=== PATIENT | female | born 1985 | race Caucasian/White ===

== ENCOUNTER → 2019-08-22 07:12 | Outpatient (CLI) | payer OTHER, MEDICAID, SELFPAY ==
--- NOTE | 2019-08-22 07:14 | CT_ITS ---
STUDY: CT MAXILLOFACIAL SINUSES REASON FOR EXAM: Female, 34 years old. Sinusitis x1 month RADIATION DOSAGE (If Supplied By Facility): CTDIvol = ( 33.06 ) mGy, DLP = ( 718.15 ) mGycm TECHNIQUE: The patient was scanned in a multi detector CT scanner. High resolution axial imaging was performed without the administration of intravenous contrast material. Sagittal and coronal images were reconstructed. Individualized dose optimization techniques were used for this CT. COMPARISON: None. FINDINGS: FRONTAL SINUSES: Normal aeration, without mucosal inflammatory disease. ETHMOIDAL SINUSES: There is mucosal thickening of multiple ethmoid air cells bilaterally. MAXILLARY SINUSES: There is mucosal thickening of the maxillary sinuses. SPHENOIDAL SINUSES: There is mild mucosal thickening of the sphenoid sinuses. There is patency of the bilateral maxillary infundibuli with normal uncinate processes, ethmoid bullae, and hiatus semilunaris. Normal bilateral middle turbinates. Normal bilateral inferior turbinates. There is nasal septal deviation toward the right. There is patency of the bilateral nasal airways. The visualized osseous structures are normal. The visualized bilateral orbital contents are normal. CT/Sinus/Facial Bone IMPRESSION: Chronic pansinusitis. Electronically Signed: Jose Moss MD at 22:43 EDT , Service support ,
== END ==
PROVIDERS: Family Provider Physician Assistant; PCP Physician Assistant; Referring Provider Otolaryngology; Visit Provider Otolaryngology
DX: J32.9 Chronic sinusitis, unspecified (principal)
CPT/HCPCS: 70486

== ENCOUNTER 2020-11-21 11:06 | Day surgery (SDC) | payer OTHER, MEDICAID, SELFPAY ==
[2020-11-21] VITALS (10 sets, daily range): BP systolic 114–135; BP diastolic 66–80; PULSE 71–123; RESP 16–20; TEMP 36.6–37.7; O2SAT 95–99; BMI 37.2
--- NOTE | 2020-11-21 11:16 | CT_ITS ---
STUDY: CT ABDOMEN AND PELVIS WITHOUT CONTRAST REASON FOR EXAM: Female, 35 years old. Right flank pain today, nausea/vomiting. Prior x 2. RADIATION DOSAGE (If Supplied By Facility): CTDIvol = ( 18.21 ) mGy, DLP = ( 936.99 ) mGycm TECHNIQUE: Transaxial images were obtained from the dome of the diaphragm to the symphysis pubis without oral contrast, and without intravenous contrast. Sagittal and coronal images were reconstructed. Individualized dose optimization techniques were used for this CT. COMPARISON: Comparison is made with prior study dated 10/05/2013. FINDINGS: Minimal increased markings at the left lung base suggestive of left basilar atelectasis. The visualized portions of the heart are within normal limits. Normal liver. Normal gallbladder and extrahepatic biliary system. Normal spleen. Normal pancreas. Normal bilateral adrenal glands. Engorgement of the right kidney. Mild degree of right hydronephrosis and right hydroureter due to a 4.6 mm calculus at the right ureterovesical junction. 2 mm calculus in the upper pole calyx of the left kidney. There is a small hiatal hernia. Normal small intestine. Normal colon. Small lymph nodes in the mesentery in the right lower quadrant is suggestive mesenteric adenitis. The appendix is visualized and appears normal. Normal abdominal aorta. Normal inferior vena cava. Normal retroperitoneum. Normal urinary bladder. There is a small umbilical hernia containing fat. Normal osseous structures. CT/Abdomen/Pelvis without Cont IMPRESSION: 4.6 mm calculus at the right ureterovesical junction causing a right hydronephrosis and right hydroureter. Nonobstructive calculus in the upper pole of the left kidney. Electronically Signed: Nazario Scott, at 12:42 EST , Service support ,
--- NOTE | 2020-11-21 11:18 | ED.VISSUMM ---
- ER Visit Summary Date of Service: 11/21/20 Chief Complaint: [Right flank pain] History of Present Illness: The patient is a 35 F [presents to the emergency department complaint of pain in her right side that started this morning. Patient states the pain came on suddenly. She has had nausea and vomiting with it. The pain radiates to the front of the abdomen. She is never had discomfort like this before. She denies any fever. She denies urinary symptoms. No significant medical history. Patient has had prior . Patient states the pain is a 10 out of 10. Patient actively retching and vomiting on arrival.] Physical Examination: [HEENT-PERRLA, EOMI. Cranial nerves II through XII grossly intact. TMs clear. Mucous membranes moist. No adenopathy. Cardiovascular-regular rate and rhythm without murmur or ectopy Lungs-clear to auscultation, chest wall stable without crepitus or subcu emphysema Abdomen-normoactive bowel sounds, soft. Patient has tenderness palpation over right lower quadrant and CVA tenderness on the right. There is no rebound, rigidity, or pedal signs. Extremities-intact ?4, normal range of motion, normal pulses, atraumatic] Test Results: [CBC with differential obtained showing a 13.7, hemoglobin 13.7, hematocrit 40, platelets 412. Chemistries unremarkable. CT scan of the abdomen pelvis showed a 4.6 mm calculus at the right UVJ with right hydroureter and hydronephrosis. Urinalysis ordered and pending.] Emergency Department Course and Treatment: [IV line established on arrival. Patient was given Zofran, Toradol, and Dilaudid for pain. Patient continued to have pain and was given a second milligram of Dilaudid for pain. On repeat evaluation at 1310 patient continues to complain of waves of severe pain. She does not feel comfortable going home.] Treatment Plan: Case will be discussed with Dr. Starr who is on for urology to admit patient.] Disposition: [Admit for pain control] Impression: [Right-sided kidney stone with colic Intractable pain] This note was generated with [employer] software. It may contain incorrect words, spelling, and punctuation that were not noted in review of the chart prior to signing ED Disposition - Plan for ED Patient: Referrals: Frida Arreguin PA [NON-STAFF] -
[2020-11-21] MEDS: Ondansetron 4 MG/2 ML Vial IV (11:23)
[2020-11-21 11:25] LABS: Absolute Lymphocyte Count 1.87 X10^3/uL (0.83-4.51); Absolute Neutrophil Count 11.2 X10^3/uL (2.0-7.7); Basophil# 0.04 X10^3/uL; Basophil% 0.3 % (0-1); Eosinophil# 0.04 X10^3/uL; Eosinophils% 0.3 % (0-5); Hematocrit 40.1 % (37-47); Hemoglobin 13.7 g/dL (12.0-15.0); Lymphocyte # 1.87 X10^3/ul (4.0); Lymphocyte % 13.6 % (19-41); Mean Corp Hgb Conc 34.2 g/dL (32-36); Mean Corpuscular Hgb 29.4 pg (27.0-32.0); Mean Corpuscular Volume 86.1 fL (81-99); Mean Platelet Vol. 8.6 fl (6.2-12.0); Monocyte# 0.51 X10^3/uL; Monocyte% 3.7 % (0-10); NRBC Flagged by Analyzer 0 % (0-5); Neutrophil % 81.6 % (47-70); Platelet Count 412 K/mm3 (150-450); RBC Distribution Width CV 12.4 % (11.6-14.6); RBC Distribution Width SD 38.7 fl (35.1-43.9); Red Blood Count 4.66 M/mm3 (4.2-5.4); White Blood Count 13.7 K/mm3 (4.4-11.0)
[2020-11-21] MEDS: HYDROmorphone 1 MG/ML Syringe IV ×3 (11:25→13:24)
[2020-11-21] MEDS: Ketorolac 30 MG/ML Syringe IV (11:26)
[2020-11-21] MEDS: 0.9% Normal Saline 1,000 ML 125 ML IV (11:33)
[2020-11-21 11:36] LABS: Anion Gap 6 (5-15); BUN 11 mg/dL (7-18); BUN/Creat Ratio 13.3 RATIO (10-20); Calcium,Total 8.6 mg/dL (8.5-10.1); Chloride 108 mmol/L (98-107); Creatinine, Serum 0.83 mg/dL (0.55-1.02); EST Glomerular Filtration Rate 83 mL/min (>60); Est Glom Filt Rate - Afr Amer 100 mL/min (>60); Estimated Creatinine Clearance 77.51 ml/min; Glucose 137 mg/dL (74-106); Potassium 3.7 mmol/L (3.5-5.1); Sodium Level 138 mmol/L (136-145)
[2020-11-21 12:02] LABS: Internal QC Validated? YES +Cl - CLEAR BKGD; Pregnancy, Serum, hCG Quali. NEGATIVE Negative
--- NOTE | 2020-11-21 13:15 | PCM.CONS.U ---
Problem List (1) Right ureteral calculus Status: Acute Reason for Consult Date of Consultation: 11/21/20 Reason for Consultation: right obstructing stones in ureter History of Present Illness: The patient is a 35 year old female with RIGHT 4mm stone in distal ureter with nausea, pain , vomiting will take to surgery now to remove stone and place stent. Past Medical History Allergies benzonatate [From [employer] Francisca] Allergy (Mild, Verified 11/21/20 11:06) Swelling Home Medications: Ambulatory Orders Medication Instructions Recorded Albuterol Inhaler [Ventolin Hfa] 1 - 2 puff INHALATION Q4H PRN PRN 01/22/15 Mometasone/Formoterol [Dulera 200 8.8 gm IH DAILY 01/22/15 Mcg/5 Mcg Inhaler] Surgical History: arthroscopy, knee, tonsillectomy Psychiatric History: No pertinent psych hx [employer] WR[employer]PER History: - - complex mass in the pelvis on CT yesterday.....results pelvic US done today pending Smoking Status: Never smoker Review of Systems Constitutional: Denies: Chills, Fever, Weight Change HEENT: Denies: Head Aches, Sinus Congestion, Sinus Drainage Cardiovascular: Denies: Chest Pain, Palpitations Respiratory: Denies: Cough, Shortness of breath at rest, Sputum production Gastrointestinal: Denies: Abdominal Pain, Nausea, Vomiting Genitourinary: Denies: Dysuria Musculoskeletal: Denies: Joint Pain, Joint Tenderness Skin: Denies: Rash, Wounds Neurological: Denies: Numbness, Tingling, Focal weakness Psychiatric: Denies: Anxiety, Depression, Homicidal Ideations, Suicidal Ideations Hematologic/ Lymphatic: Denies: Easy Bruising, Easy Bleeding Physical Exam - Physical Exam Vital Signs Temp 97.8 F 11/21/20 11:08 Pulse 71 11/21/20 11:08 Resp 19 H 11/21/20 11:08 BP 135/73 H 11/21/20 11:48 Pulse Ox 99 11/21/20 11:08 Intake & Output 11/19/20 11/20/20 11/21/20 23:59 23:59 23:59 Weight: 95.254 kg General: Alert, Oriented x3 HEENT: Atraumatic Oral: Moist Mucosa Neck: Supple Lungs: Normal air movement Cardiovascular: Regular Rhythm Laboratory Tests Past 24 Hrs 11/21/20 11/21/20 11/21/20 11:19 11:19 11:19 WBC 13.7 H RBC 4.66 Hgb 13.7 Hct 40.1 MCV 86.1 MCH 29.4 MCHC 34.2 RDW Std Deviation 38.7 RDW Coeff of [place] 12.4 Plt Count 412 MPV 8.6 Immature Gran % (Auto) 0.500 Neut % (Auto) 81.6 H Lymph % (Auto) 13.6 L [place] % (Auto) 3.7 Eos % (Auto) 0.3 Baso % (Auto) 0.3 Absolute Neuts (auto) 11.2 H Absolute Lymphs (auto) 1.87 Nucleated RBC % 0 Sodium 138 Potassium 3.7 Chloride 108 H Carbon Dioxide 24.0 Anion Gap 6 BUN 11 Creatinine 0.83 Estim Creat Clear Calc 77.51 Est GFR (MDRD) Af Amer 100 Est GFR (MDRD) Non-Af 83 BUN/Creatinine Ratio 13.3 Glucose 137 H Calcium 8.6 Serum , Qual NEGATIVE Assessment/Plan All Active Problems Right ureteral calculus (Acute) Gestational hypertension (Acute) plan for right ureteroscopy laser stone and stent today in OR NPO, patient sent to OR now
[2020-11-21 13:40] LABS: Bacteria 0 SEEN /hpf (None Seen); Mucous, Urine 0 SEEN /hpf (<or=2+); Red Blood Cells-Urine 0 SEEN /hpf (0-5); White Blood Cells 0 SEEN /hpf (0-5)
[2020-11-21] MEDS: Lactated Ringers 1,000 ML 75 ML IV ×2 (13:50→15:20)
--- NOTE | 2020-11-21 13:51 | DCINST_ITS ---
Discharge Diet: Light diet - advance as tolerated Discharge Activity: May not drive while taking narcotic pain medications., May Shower Call your doctor if your incision/area has: Continuous Slow Oozing, Sudden Increased Bleeding, Increased Pain/ Swelling, Increased Redness, Foul Smelling Discharge, Swelling at the incision site Call your doctor if you observe: Fever of 101 or Higher Suture Line Care: Avoid Pulling/Pushing, Avoid Pinching/Bending Allergies/Adverse Reactions: Allergies benzonatate [From [employer] Espinosa] Allergy (Mild, Verified 11/21/20 11:06) Swelling Medications to take at Discharge Albuterol Inhaler [Ventolin Hfa] 1 - 2 puff INHALATION Q4H PRN PRN 01/22/15 Mometasone/Formoterol [Dulera 200 Mcg/5 Mcg Inhaler] 8.8 gm IH DAILY 01/22/15 Primary Care Physician: Frida Arreguin PA [NON-STAFF] - Test Results: Test results from this visit will be discussed in further detail at your follow- up appointment, if applicable. Please Follow Up With: Ben Starr MD - [phone] When: please call to make an appointment.
[2020-11-21 13:56] LABS: Color, Urine Yellow (Yellow); Glucose, Dipstick Normal (Normal); Ketone-Dipstick 15 mg/dl (Negative); Leukocyte Esterase-Dipstick Negative /ul (Negative); Nitrite-Dipstick Negative (Negative); Occult Blood-Urine 50 /ul (Negative); Protein-Dipstick Negative (Negative); Specific Gravity, Urine 1.015 (1.002-1.030); Urine Bilirubin Dipstick Negative (Negative); Urine Clarity Sl. Cloudy (Clear); Urine Urobilinogen Normal (Normal)
[2020-11-21 14:03] LABS: Squamous Epithelial Cells - UA 0-5 SEEN /hpf (5-10)
--- NOTE | 2020-11-21 14:42 | OP.PCM_ITS ---
Problem List (1) Right ureteral calculus Status: Acute Report of Operation Date of Procedure: 11/21/20 Pre-Operative Diagnosis: Right obstructive distal ureteral calculi Post-Operative Diagnosis: Same Surgery/Procedure Performed:: Cystoscopy, balloon dilation of the right ureter, ureteroscopy in the right side laser lithotripsy of stone and right stent placement. Description of Surgical Findings:: This is a patient who presents to the hospital for treatment for an obstructing distal right ureter calculi. I discussed witht the patient how the surgery would be performed and we reviewed the risks and benefits of the surgery. The risk and benefits include the risk of failure to remove the stone completely and that the patient may need multiple procedures. We discussed the risk of an infection, the risk of bleeding. We discussed the very rare risk of serious complicated injury to the ureter. The patient understands that if the stone is not able to be removed safely that we may abort the procedure and place a stent. After full discussion and all questions address with the patient the consent form was signed the side was marked appropriately and the patient was taken back to the operating room for the procedure. The patient was taken back to the operating room. After induction of anesthesia by the anesthesiology team the patient was placed in dorsolithotomy position. The genitals were prepped and draped in usual sterile fashion. I went into the bladder with a 21 [place] rigid cystourethroscope through the urethra. Upon entering the bladder I inspected the trigone the left and right ureteral orifice and the bladder itself. I then cannulated the right ureteral orifice and advanced a 0.038 Glidewire up into the kidney. Then over the Glidewire I advanced a 5 Fr Ureteral catheter and performed a retrograde pyelogram with about 10cc of contrast, to delineate the anatomy and identify the stone location. Then a ureteral balloon dilator was advanced over the wire and the distal ureter was balloon dilated with a 12 Fr x 5cm balloon dilator. After 3 minutes of dilating the ureter the balloon was backloaded off the 0.038 glidewire then the safety wire was left in place. I then placed a second 0.038 Guidewire as a working wire and over the working 0.038 guidewire I went in with the santiago rigide 7.5fr ureteroscope. I was able to go inside with the 7.5Fr santiago rigid utereroscope and I pulled out the working guidewire and then through the 7.5 fr simirigid ureteroscope I engage the stone in the distal ureter with laser lithotripsy using a 270miron laser fiber with energy setting of 6 Hertz and 0.6 J until the stone was lasered into tiny little pieces that should pass on their own. A retrograde pyelogram was performed with 10cc of contast and no ext ravasation of contrast or perforation was identified in the ureter there was some mild irritation of the ureter where the stone was located. I then backed out of the ureter left the wire in place and then over the 0.038 guidewire I placed a double coiled pigtail ureteral stent 6fr x 24cm. The ureteral stent was advanced over the 0.038 guidewire under direct fluoroscopic guidance and direct cystoscopic visual guidance, once the stent was in good position I pulled the wire and the stent coiled in the kidney and bladder in good position. I then drained the patient's bladder and the cystoscope was removed and the patient was taken back to the recovery room in good position. The patient was given discharge instructions to call the office for instructions on when to come to the office to have the stent removed. Type of Anesthesia:: General Drains: stent right side 6fr x 24cm - Admit VTE Documentation VTE Present on Admission: No VTE Mechan Device Prophylaxis: SCD's
[2020-11-21] MEDS: Ketorolac 15 MG/ML Vial IV (15:13)
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
--- NOTE | 2020-11-21 15:58 | SUR.PHASEII ---
WITH PATIENT'S PERMISSION, CALLED HER MOTHER, JERRI MASTERS, TO UPDATE, DISCHARGE PLANNING. WILL CALL WHEN PATIENT READY FOR DISCHARGE PER MOTHER'S REQUEST D/T HAVING A SMALL CHILD WITH HER.
[2020-11-21] MEDS: HYDROcodone Bitartrate/Apap 5/325 Tablet PO (16:21)
== END 2020-11-21 17:39 | disposition home or self-care (01) ==
LOC: ED 13:14 → SDC 13:28 → ACINP 13:28
PROVIDERS: Emergency Provider Emergency Medicine; Visit Provider Urology
PROC: 0TJ98ZZ Inspection of Ureter, Via Natural or Artificial Opening Endoscopic (ICD-10-PCS; CPT 52352; principal; 2020-11-21 13:25)
DX: N13.2 Hydronephrosis with renal and ureteral calculous obstruction (principal); J45.909 Unspecified asthma, uncomplicated; Z79.51 Long term (current) use of inhaled steroids
CPT/HCPCS: 00918; 52356; 74176; 76000; 80048; 81001; 84703; 85025; 99284; J7040; J7120; A4216; C1769; C2617; J2405; J3490

== ENCOUNTER 2020-11-25 16:51 | Emergency (ER) | payer OTHER, MEDICAID, SELFPAY ==
[2020-11-21 13:31] VITALS: BMI 37.2
[2020-11-25 16:51] VITALS: BP 161/101; PULSE 107; RESP 17; TEMP 36; O2SAT 98; BMI 36.8
[2020-11-25] MEDS: Ondansetron ODT 4 MG Tablet PO (17:46)
[2020-11-25 17:53] LABS: Squamous Epithelial Cells - UA 0 SEEN /hpf (5-10)
[2020-11-25 17:54] LABS: Color, Urine Red (Yellow); Glucose, Dipstick Normal (Normal); Ketone-Dipstick 5 mg/dl (Negative); Leukocyte Esterase-Dipstick 100 /ul (Negative); Nitrite-Dipstick Negative (Negative); Occult Blood-Urine 250 /ul (Negative); Protein-Dipstick 100 mg/dl (Negative); Specific Gravity, Urine 1.025 (1.002-1.030); Urine Bilirubin Dipstick Negative (Negative); Urine Clarity Cloudy (Clear); Urine Urobilinogen Normal (Normal)
--- NOTE | 2020-11-25 18:10 | ED.DCSUM_ITS ---
History of Present Illness Chief Complaint: Complaint Informant: Patient Onset: Hours Context: Sudden Onset Timing: Continuous Quality: Right-sided abdominal/flank pain and dysuria with frequency Location: Right side Current Severity: Moderate Maximum Severity: Severe Worsened by: Urination Relieved by: Nothing Associated Symptoms: Nausea Narrative: Patient is a 35-year-old woman who was seen earlier this month for an obstructing right ureteral stone. Patient had a stent placed. Stent was removed today. 2030 minutes after stent was removed she developed what she described as spasms with right-sided pain, frequency, urgency and dysuria. She states she is urinating dribbles. She denies documented fever. She does report nausea without vomiting or diarrhea. She denies rash. She has no other complaints. Prior similar symptoms: No Recent Illness/Hospitalization: Yes - Past Medical History (1) Gestational hypertension Status: Acute (2) Right ureteral calculus Status: Acute Past Medical History - Allergies and Home Meds Allergies/Adverse Reactions: Allergies benzonatate [From [employer]on Perles] Allergy (Mild, Verified 11/25/20 16:51) Swelling Primary Care Physician: Care Physician,No Primary [Primary Care Provider] - Surgical History: arthroscopy, knee, tonsillectomy, - - Removal of urethral stent Lives: With Family Smoking Status: Never smoker Alcohol: None Drugs: None Review of Systems General: Denies: Chills, Fever, Malaise, Subjective, Sweats Eyes: Denies: Visual changes - bilaterally, Blurred Vision - bilaterally ENT: Denies: Rhinorrhea, Sore throat Respiratory: Denies: Dyspnea, Cough, Dyspnea on exertion Gastrointestinal: Reports: Nausea. Denies: Abdominal pain, Vomiting, Diarrhea, Melena, Hematochezia Genitourinary: Reports: Dysuria, Frequency, - - Urinating small amounts and urgency. Denies: Hematuria Musculoskeletal: Reports: Back pain. Denies: Myalgias, Arthralgias, Neck pain, Swelling, Extremity Pain Skin: Denies: Rash, Abscess Endocrine: Denies: Polyuria, Polydipsia Hematologic: Denies: Easy bruising, Easy bleeding Physical Exam Vital Signs/Narrative: Vital Signs Temp Pulse Resp BP Pulse Ox 11/25/20 16:51 96.8 F L 107 H 17 161/101 H 98 Inital Vital Signs reviewed: Yes General: Well nourished, Well developed, Obese, Acute Distress Head: Normocephalic, Atraumatic Eyes: Perrl, EOMI ENT: Moist mucous membranes, No rhinorrhea Neck: Supple, Nontender, No lymphadenopathy Cardiovascular: Regular rhythm, No murmurs, Normal S1, Normal S2, Tachycardia Respiratory: No distress, CTA bilaterally, Chest nontender Abdomen: Soft, Nondistended, Normal bowel sounds, No masses, Tender. Negative for: Nontender - Suprapubic region, Guarding, Rebound tenderness Rectal: Deferred Back: Nontender, Normal Inspection, CVA tenderness - Right side. Negative for: Spinal tenderness Extremities: Negative for: Nontender, No edema Skin: Negative for: Normal color, No rash Neurological: Negative for: Alert, Oriented x3, Cranial nerves II-XII grossly in tact, Normal Strength, Normal Sensation Psychological: Normal Mood Diagnostic/Tx/Re-eval Laboratory Results 11/25/20 17:30 Urine Color Red Urine Clarity Cloudy Urine pH 6.0 Ur Specific [place] 1.025 Urine Protein 100 H Urine Glucose (UA) Normal Urine Ketones 5 H Urine Occult Blood 250 H Urine Nitrite Negative Urine Bilirubin Negative Urine Urobilinogen Normal Ur Leukocyte Esterase 100 H Urine RBC > 100 SEEN Urine WBC 10-25 SEEN Ur Squamous Epith Cells 0 SEEN Urine Bacteria RARE Urine Mucus RARE Patient's urine is not consistent with infection. Patient was treated initially with opium and belladonna suppository. She had no improvement. She subsequently received IV Toradol and morphine. When she was reassessed at 2109 she was no longer in discomfort. She feels comfortable going home. - Medical Decision Making Urinary tract infection, pyelonephritis, ureteral spasm. Will obtain UA Zofran was ordered because patient began to vomit. Still awaiting results of urinalysis. At 1814 I was informed that patient came to the doorway complaining she is in severe pain. Since she describes a spasm and opium and belladonna suppository was ordered. ED Disposition - Plan for ED Patient: Disposition: Home or Assisted Living Diagnosis: URETHRAL SPASM, Painful bladder spasm, Hematuria, Ureterolithiasis Prescriptions: Oxycodone HCl/Acetaminophen [Percocet 5/325] 1 tab PO Q6H PRN PRN 3 Days #12 tab PRN Reason: Pain Prescription Printed Referrals: Care Physician,No Primary [Primary Care Provider] - Ben Starr MD [STAFF PHYSICIAN] - 3-5 Days if not improving
[2020-11-25 18:26] LABS: Bacteria RARE /hpf (None Seen); Mucous, Urine RARE /hpf (<or=2+); Red Blood Cells-Urine > 100 SEEN /hpf (0-5); White Blood Cells 10-25 SEEN /hpf (0-5)
[2020-11-25] MEDS: Ketorolac 15 MG/ML Vial IV (19:29)
[2020-11-25] MEDS: Morphine 4 MG/ML Syringe IV (19:29)
[2020-11-25] MEDS: Ceftriaxone 1 GM/50 ML BAG IV (19:37)
== END 2020-11-25 21:48 | disposition home or self-care (01) ==
PROVIDERS: Emergency Provider Emergency Medicine
DX: R39.89 Other symptoms and signs involving the genitourinary system (principal); Z87.442 Personal history of urinary calculi; E66.9 Obesity, unspecified; Z68.36 Body mass index [BMI] 36.0-36.9, adult
CPT/HCPCS: 81001; 87086; 87088; 96365; 96375; 99282; J7040; A4216

== ENCOUNTER 2022-11-30 03:52 | Inpatient (IN) | payer OTHER, MEDICAID, SELFPAY ==
[2022-11-30 03:52] VITALS: BP 160/98; PULSE 90; RESP 18; TEMP 35.9; O2SAT 99; BMI 35.6
--- NOTE | 2022-11-30 04:01 | CT_ITS ---
STUDY: CT ABDOMEN AND PELVIS WITHOUT CONTRAST REASON FOR EXAM: Female, 37 years old. Findings pain. Left-sided. TECHNIQUE: Transaxial images were obtained from the dome of the diaphragm to the symphysis pubis without oral contrast, and without intravenous contrast. Sagittal and coronal images were reconstructed. Individualized dose optimization techniques were used for this CT. COMPARISON: CT abdomen pelvis 11/21/2020. FINDINGS: Partially visualized lower chest: Lung bases unremarkable. Liver: No concerning lesions. Gallbladder and biliary tree: No visible gallstones. No pericholecystic inflammation. No biliary ductal dilation. Pancreas: No pancreatic lesions or inflammation. Spleen: Normal size, no splenic lesions. Adrenal glands: No concerning masses. Kidneys and ureters: 0.3 cm distal left ureteral stone, located about 2 cm proximal from the urinary bladder, with mild more proximal hydronephrosis and hydroureter. No residual left-sided stones. Punctate nonobstructing stone midpole calyx right kidney. No right hydronephrosis. Kidneys otherwise unremarkable. Bowel: Normal appendix. No obstruction or inflammation of the bowel. Urinary bladder: Nondistended. No other stones. Reproductive:Normal uterus and ovaries. Vascular: No abdominal aortic aneurysm. Retroperitoneal and peritoneal spaces: No ascites or free air. No retroperitoneal lesions. Osseous: No acute osseous abnormality. Mild left cholecystitis lumbar spine similar to prior. Abdominal and pelvic wall: No concerning findings. Any findings described in the findings sections and not included in the impression are incidental and do not require imaging follow-up. CT/Abdomen/Pelvis without Cont IMPRESSION: 0.3 cm distal left ureteral stone with mild obstruction. Punctate nonobstructing right renal stone. Electronically Signed: Jose Flower MD at 5:16 EST Reading Location ID and State: Pending sale to [facility] / [place] Tel , Service support ,
--- NOTE | 2022-11-30 04:02 | EDS_ITS ---
HPI History of Present Illness Chief Complaint: Flank Pain Informant: patient Onset/Context/Timing Onset: Days Context: Gradual Onset Timing: Waxes and wanes Current Severity: Severe Maximum Severity: Severe Narrative Narrative: Patient presents with 1 week history of left flank pain. She has a history of kidney stones and this feels similar. She states the pain has been waxing and waning. At 3 AM this morning she woke up with severe pain with nausea and vomiting. She does report dysuria. She reports having fever and chills. [facility] Medical History Kidney stones Home Medications albuterol sulfate 90 mcg/actuation aerosol inhaler (Ventolin HFA) 1 - 2 puff inhalation Q4H PRN PRN Asthma 01/22/15 [History Last Taken 10/29/16 08:00 1-2] mometasone-formoterol HFA 200 mcg-5 mcg/actuation aerosol inhaler (Dulera) 8.8 g IH DAILY respiratory 01/22/15 [History Last Taken 10/17/17] ciprofloxacin HCl 500 mg tablet 500 mg PO BID #6 tabs 11/21/20 [Rx Last Taken Unknown] Allergy/AdvReac Type Severity Reaction Status Date / Time benzonatate Allergy Mild Swelling Verified 11/30/22 03:55 [From Annika Espinosa] Social History Smoking Status: Never smoker ROS ROS ED Constitutional Constitutional ED: Reports chills and fever(s) Eyes Eyes: Denies change in vision or discharge from eye(s) ENT ENT ED: Denies discharge from eye(s), rhinorrhea or sore throat Cardiovascular Cardiovascular: Denies chest pain or palpitations Respiratory/Chest Respiratory/Chest: Denies cough or dyspnea Gastrointestinal Gastrointestinal: Reports abdominal pain, nausea and vomiting; Denies diarrhea Genitourinary Genitourinary ED: Reports dysuria Musculoskeletal Musculoskeletal: Reports back pain; Denies extremity pain Integumentary Denies Abrasions or rash Neurologic Neurologic: Denies headache(s) or weakness Psychiatric Psychiatric: Denies anxiety or depression Allergic/Immunologic Allergic/Immunologic ED: Denies lip swelling or urticaria EXAM Physical Exam Const Vital Signs: 11/30/22 03:52 11/30/22 06:18 Temperature 96.6 F L Temperature Source Temporal Pulse Rate 90 81 Respiratory Rate 18 22 H Blood Pressure 160/98 H 133/82 H Blood Pressure Mean 118 99 Pulse Ox 99 98 Oxygen Delivery Method Room Air Room Air Positive well nourished and well developed General Appearance ED: well developed HEENT Reports normocephalic and head/scalp atraumatic Eyes PERRL and EOMs intact bilaterally Neck supple Chest Wall inspection of chest normal and palpation of chest normal Resp normal respiratory effort and clear to auscultation bilaterally Cardio regular rate and regular rhythm GI non-tender Auscultation: hypoactive bowel sounds Palpation: soft Back/Spine General Back: CVA tenderness left Extremity normal to inspection Neuro oriented x3 and no sensory deficits noted Sensorium / Orientation: alert Motor Exam: strength 5/5 throughout Psych Mood & Affect: anxious Skin no rashes or lesions noted MDM MDM MDM Narrative Medical decision making narrative: Patient initially given Dilaudid, Zofran, Toradol, IV fluids. Lab work obtained along with urinalysis and CT flank. Lab Data Attestation: I reviewed the patient's lab results. Labs: Laboratory Results - last 24 hr 11/30/22 11/30/22 11/30/22 04:10 04:10 04:10 WBC 10.0 RBC 4.96 Hgb 14.5 Hct 43.5 MCV 87.7 MCH 29.2 MCHC 33.3 RDW Std Deviation 40.6 RDW Coeff of [place] 12.7 Plt Count 415 MPV 9.1 Immature Gran % (Auto) 0.400 Neut % (Auto) 63.4 Lymph % (Auto) 29.6 [place] % (Auto) 5.1 Eos % (Auto) 1.0 Baso % (Auto) 0.5 Absolute Neuts (auto) 6.3 Absolute Lymphs (auto) 2.95 Nucleated RBC % 0 Sodium 138 Potassium 4.0 Chloride 106 Carbon Dioxide 23.0 Anion Gap 9 BUN 12 Creatinine 0.98 Estim Creat Clear Calc 64.39 Est GFR (MDRD) Af Amer 82 Est GFR (MDRD) Non-Af 68 BUN/Creatinine Ratio 12.3 Glucose 134 H Calcium 8.8 Serum , Qual NEGATIVE Urine Color Urine Clarity Urine pH Ur Specific [place] Urine Protein Urine Glucose (UA) Urine Ketones Urine Occult Blood Urine Nitrite Urine Bilirubin Urine Urobilinogen Ur Leukocyte Esterase Urine RBC Urine WBC Ur Squamous Epith Cells Urine Bacteria Urine Mucus 11/30/22 04:25 WBC RBC Hgb Hct MCV MCH MCHC RDW Std Deviation RDW Coeff of [place] Plt Count MPV Immature Gran % (Auto) Neut % (Auto) Lymph % (Auto) [place] % (Auto) Eos % (Auto) Baso % (Auto) Absolute Neuts (auto) Absolute Lymphs (auto) Nucleated RBC % Sodium Potassium Chloride Carbon Dioxide Anion Gap BUN Creatinine Estim Creat Clear Calc Est GFR (MDRD) Af Amer Est GFR (MDRD) Non-Af BUN/Creatinine Ratio Glucose Calcium Serum , Qual Urine Color Yellow Urine Clarity Sl. Cloudy Urine pH 6.0 Ur Specific [place] 1.015 Urine Protein 30 H Urine Glucose (UA) Normal Urine Ketones 5 H Urine Occult Blood 50 H Urine Nitrite Negative Urine Bilirubin Negative Urine Urobilinogen 1 H Ur Leukocyte Esterase Negative Urine RBC 0-5 SEEN Urine WBC 0-5 SEEN Ur Squamous Epith Cells 10-25 SEEN Urine Bacteria 2+ Urine Mucus 2+ Radiography Diagnostic Testing: Clinical Impression(s) from Imaging Studies Abdomen/Pelvis CT 11/30/22 04:01 IMPRESSION: 0.3 cm distal left ureteral stone with mild obstruction. Punctate nonobstructing right renal stone. Electronically Signed: Jose Flower MD at 5:16 EST Reading Location ID and State: [address] [place] [address] Tel , Service support , Treatment and Re-Evaluation Narrative: CBC and chemistry studies unremarkable. test is negative. Urinalysis reveals 10-25 epithelial cells with 2+ bacteria. No nitrites noted. CT scan of the flank reveals a 0.3 cm distal left ureter stone with mild obstruction. Patient has now gotten 4 rounds of pain medication. She continues to be quite uncomfortable. I did review her prior notes and 2 years ago she did require stent placement for a distal right ureter stone. I will speak with Dr. Starr. Discharge Plan Triage Chief Complaint: Flank Pain ED Provider: Alisa Nogueira Dx/Rx/DC Orders Clinical Impression: Ureterolithiasis Prescriptions: No Action albuterol sulfate [Ventolin HFA] 1 INHALER inhaler 1 - 2 puff inhalation Q4H PRN PRN (Reason: Asthma) mometasone-formoterol [Dulera] 8.8 GM Hfa.Aer.Ad 8.8 g IH DAILY ciprofloxacin HCl 500 MG tablet 500 mg PO BID Qty: 6 0RF Primary Care Provider: Care Physician,No Primary Referrals: Care Physician,No Primary [Primary Care Provider] - Disposition Disposition: Acute Care Hospital [facility]
[2022-11-30] MEDS: HYDROmorphone 0.5 MG/0.5 ML SYRINGE IV ×3 (04:13→07:01)
[2022-11-30] MEDS: Ondansetron 4 MG/2 ML Vial IV ×3 (04:13→18:54)
[2022-11-30] MEDS: Ketorolac 30 MG/ML Syringe IV ×2 (04:13→10:21)
[2022-11-30 04:23] LABS: Absolute Lymphocyte Count 2.95 X10^3/uL (0.83-4.51); Absolute Neutrophil Count 6.3 X10^3/uL (2.0-7.7); Basophil# 0.05 X10^3/uL; Basophil% 0.5 % (0-1); Hematocrit 43.5 % (37-47); Hemoglobin 14.5 g/dL (12.0-15.0); Lymphocyte # 2.95 X10^3/ul (0.83-4.51); Lymphocyte % 29.6 % (19-41); Mean Corp Hgb Conc 33.3 g/dL (32-36); Mean Corpuscular Hgb 29.2 pg (27.0-32.0); Mean Corpuscular Volume 87.7 fL (81-99); Mean Platelet Vol. 9.1 fl (6.2-12.0); Monocyte# 0.51 X10^3/uL; Monocyte% 5.1 % (0-10); NRBC Flagged by Analyzer 0 % (0-5); Neutrophil # 6.32 X10^3/uL (2.7-7.7); Neutrophil % 63.4 % (47-70); Platelet Count 415 K/mm3 (150-450); RBC Distribution Width CV 12.7 % (11.6-14.6); RBC Distribution Width SD 40.6 fl (35.1-43.9); Red Blood Count 4.96 M/mm3 (4.2-5.4)
[2022-11-30 04:32] LABS: Color, Urine Yellow (Yellow); Glucose, Dipstick Normal (Normal); Ketone-Dipstick 5 mg/dl (Negative); Leukocyte Esterase-Dipstick Negative /ul (Negative); Nitrite-Dipstick Negative (Negative); Occult Blood-Urine 50 /ul (Negative); Protein-Dipstick 30 mg/dl (Negative); Specific Gravity, Urine 1.015 (1.002-1.030); Urine Bilirubin Dipstick Negative (Negative); Urine Clarity Sl. Cloudy (Clear); Urine Urobilinogen 1 mg/dl (Normal)
[2022-11-30 04:33] LABS: Internal QC Validated? YES +Cl - CLEAR BKGD; Pregnancy, Serum, hCG Quali. NEGATIVE Negative
[2022-11-30 04:37] LABS: Anion Gap 9 (5-15); BUN 12 mg/dL (7-18); BUN/Creat Ratio 12.3 RATIO (10-20); Calcium,Total 8.8 mg/dL (8.5-10.1); Chloride 106 mmol/L (98-107); Creatinine, Serum 0.98 mg/dL (0.55-1.02); EST Glomerular Filtration Rate 68 mL/min (>60); Est Glom Filt Rate - Afr Amer 82 mL/min (>60); Estimated Creatinine Clearance 64.39 ml/min; Glucose 134 mg/dL (74-106); Sodium Level 138 mmol/L (136-145)
[2022-11-30 04:38] LABS: Bacteria 2+ /hpf (None Seen); Mucous, Urine 2+ /hpf (<or=2+); Red Blood Cells-Urine 0-5 SEEN /hpf (0-5); Squamous Epithelial Cells - UA 10-25 SEEN /hpf (5-10); White Blood Cells 0-5 SEEN /hpf (0-5)
[2022-11-30] MEDS: Metoclopramide 10 MG/2 ML Vial 5 MG IV (04:54)
[2022-11-30] MEDS: Morphine 4 MG/ML Syringe IV ×2 (04:55→05:49)
[2022-11-30] MEDS: 0.9% Normal Saline 1,000 ML 250 ML IV (04:56)
[2022-11-30 06:18] VITALS: BP 133/82; PULSE 81; RESP 22; O2SAT 98
[2022-11-30 07:19] VITALS: BP 137/69; PULSE 78; RESP 18; TEMP 36.4; O2SAT 96
--- NOTE | 2022-11-30 07:54 | HP.PCM_ITS ---
HPI - General General Date of Admission: 11/30/22 HPI Narrative VIOLETTA MASTERS, is a 37 F who presents to the emergency room with severe flank pain on the left side with a small stone in the distal left ureter that she can pass she was in intractable severe pain in the emergency room the ER physician called me and asked me and admit the patient because they could not get her pain under control to send her home. [facility] Medical History Kidney stones Home Medications albuterol sulfate 90 mcg/actuation aerosol inhaler (Ventolin HFA) 1 - 2 puff inhalation Q4H PRN PRN Asthma 01/22/15 [History Last Taken 10/29/16 08:00 1-2] mometasone-formoterol HFA 200 mcg-5 mcg/actuation aerosol inhaler (Dulera) 8.8 g IH DAILY respiratory 01/22/15 [History Last Taken 10/17/17] ciprofloxacin HCl 500 mg tablet 500 mg PO BID #6 tabs 11/21/20 [Rx Last Taken Unknown] Allergy/AdvReac Type Severity Reaction Status Date / Time benzonatate Allergy Mild Swelling Verified 11/30/22 03:55 [From Annika Espinosa] Social History Smoking Status: Never smoker ROS Constitutional Constitutional: Denies chills, fever(s) or malaise Eyes Eyes: Denies blurry vision or change in vision ENT HEENT: Reports none Cardiovascular Cardiovascular: Denies chest pain or palpitations Respiratory/Chest Respiratory/Chest: Denies cough or shortness of breath with exertion Gastrointestinal Gastrointestinal: Denies abdominal pain, constipation or diarrhea Musculoskeletal Musculoskeletal: Denies back pain, joint stiffness or joint swelling Integumentary Integumentary: Denies dry skin, jaundice, lesions or rash Neurologic Neurologic: Denies confusion, syncope or weakness Psychiatric Psychiatric: Reports none; Denies anxiety or depression Endocrine Endocrinology: Denies excessive sweating, fatigue or flushing Hematologic/Lymphatic Hematologic/Lymphatic: Denies anemia, easy bleeding or easy bruising Vital Signs Vital Signs Vital Signs: 11/30/22 03:52 11/30/22 06:18 11/30/22 07:19 Temperature 96.6 F L 97.5 F L Temperature Source Temporal Temporal Pulse Rate 90 81 78 Respiratory Rate 18 22 H 18 Blood Pressure 160/98 H 133/82 H 137/69 H Blood Pressure Mean 118 99 91 Pulse Ox 99 98 96 Oxygen Delivery Method Room Air Room Air Room Air Weight Weight: 91.4 kg Body Mass Index (BMI) 35.6 Physical Exam Const alert and oriented x3 General Appearance: cooperative HEENT normocephalic, head/scalp atraumatic, EAC's normal and TM's normal bilaterally Eyes PERRL and EOMs intact bilaterally Pupil: sluggish Neck no lymphadenopathy, supple and no JVD General: trachea midline Lymph Lymphatic: no lymphadenopathy noted, lymphedema and lymphadenopathy Resp normal respiratory effort, normal air movement and clear to auscultation bilaterally Cardio regular rate, regular rhythm and peripheral pulses 2+ throughout GI soft to palpation, non-tender and non-distended Extremity normal capillary refill and no clubbing, cyanosis or edema General Extremity: no tenderness to palpation of joints or extremities Skin no rashes or lesions noted General Skin Exam: turgor normal Lesions: no lesions Rashes: no rashes Neuro CN's II-XII intact bilaterally Speech: speech normal Motor Exam: strength 5/5 throughout; Negative for general weakness Psych thought process normal, cooperative and affect normal Appearance: appropriate Results Lab / Micro Data Result Diagrams: 11/30/22 04:10 11/30/22 04:10 Labs: Laboratory Results - last 24 hr 11/30/22 04:10: WBC 10.0, RBC 4.96, Hgb 14.5, Hct 43.5, MCV 87.7, MCH 29.2, MCHC 33.3, RDW Std Deviation 40.6, RDW Coeff of [place] 12.7, Plt Count 415, MPV 9.1, Immature Gran % (Auto) 0.400, Neut % (Auto) 63.4, Lymph % (Auto) 29.6, [place] % (Auto) 5.1, Eos % (Auto) 1.0, Baso % (Auto) 0.5, Absolute Neuts (auto) 6.3, Absolute Lymphs (auto) 2.95, Nucleated RBC % 0 11/30/22 04:10: Sodium 138, Potassium 4.0, Chloride 106, Carbon Dioxide 23.0, Anion Gap 9, BUN 12, Creatinine 0.98, Estim Creat Clear Calc 64.39, Est GFR (MDRD) Af Amer 82, Est GFR (MDRD) Non-Af 68, BUN/Creatinine Ratio 12.3, Glucose 134 H, Calcium 8.8 11/30/22 04:10: Serum , Qual NEGATIVE 11/30/22 04:25: Urine Color Yellow, Urine Clarity Sl. Cloudy, Urine pH 6.0, Ur Specific [place] 1.015, Urine Protein 30 H, Urine Glucose (UA) Normal, Urine Ket ones 5 H, Urine Occult Blood 50 H, Urine Nitrite Negative, Urine Bilirubin Negative, Urine Urobilinogen 1 H, Ur Leukocyte Esterase Negative, Urine RBC 0-5 SEEN, Urine WBC 0-5 SEEN, Ur Squamous Epith Cells 10-25 SEEN, Urine Bacteria 2+, Urine Mucus 2+ Radiology Impression Abdomen/Pelvis CT 11/30/22 04:01 IMPRESSION: 0.3 cm distal left ureteral stone with mild obstruction. Punctate nonobstructing right renal stone. Electronically Signed: Jose Flower MD at 5:16 EST Reading Location ID and State: [address] [place] [address] Tel , Service support , Assessment & Plan Assessment/Plan (1) Left ureteral calculus: PLAN: Admit the patient for kidney stone pain today n.p.o. at midnight plan tomorrow for surgery for stent placement left-sided shockwave lithotripsy to take care of the stone.
[2022-11-30 08:35] VITALS: BMI 35.6
[2022-11-30 08:37] VITALS: BP 127/83; PULSE 79; RESP 20; TEMP 36.6; O2SAT 98
[2022-11-30] MEDS: proMETHazine 25 MG/ML Syringe 12.5 MG IM ×2 (08:55→14:46)
[2022-11-30] MEDS: 0.9% Saline Lock 10 ML Syringe IV ×5 (08:55→21:42)
[2022-11-30] MEDS: HYDROmorphone 1 MG/ML Syringe IV ×4 (08:55→21:42)
[2022-11-30] MEDS: 0.9% Normal Saline 1,000 ML 125 ML IV ×3 (08:56→23:54)
--- NOTE | 2022-11-30 09:50 | CASEMGMT ---
VICKIE ZEE Assessment: Face to Face with pt for initial transition planning/care coordination assessment. RN SAADIA introduced self and role at [facility], pt voices understanding and consents to assessment. Pt is A/O x4 and answers all questions appropriately at this time. Pt standing up at bedside, aide providing kpad. Pt mother at bedside. Care providers, pharmacy, and demographics verified/updated. Admitting Dx: ureterolithiasis PCP:Pt denies. Provided pt with a local healthcare directory. Specialists:neva Starr Pharmacy: [facility] Insurance: [facility] [place] Community Plan Prescription Benefit: yes LNOK: Leah Connors, mother Living Arrangements: Pt lives with mother in a single story home with 4 steps to enter. Pt reports she is I in ADL's and denies concerns at home. Transportation: Pt drives self and denies concerns with transportation. DME/HHC/SNF: Pt denies having any DME in the home, previous HHC or SNF stays. Pt states no concerns with going home at time of dc. Pt states no further concerns/needs. CM to follow. Advised pt to ask CM if any further question/concerns/needs arise, voices understanding. Pt Goal: Home Plan: Home
[2022-11-30] MEDS: LORazepam 2 MG/ML Syringe 0.5 MG IV (10:21)
[2022-11-30] MEDS: Ciprofloxacin 400 MG/200 ML BAG 200 MG IV (10:21)
[2022-11-30 14:44] VITALS: BP 104/59; PULSE 88; RESP 18; TEMP 36.8; O2SAT 97
[2022-11-30] MEDS: Pantoprazole Sodium 40 MG Tablet PO (16:31)
[2022-11-30] MEDS: Docusate Sodium 100 MG Capsule 200 MG PO (16:31)
[2022-11-30] MEDS: Ketorolac 15 MG/ML Vial IV (18:54)
[2022-11-30 21:33] VITALS: BP 111/76; PULSE 80; RESP 18; TEMP 36.8; O2SAT 99
[2022-11-30] MEDS: HYDROcodone Bitartrate/Apap 5/325 Tablet PO (23:55)
[2022-12-01] VITALS (8 sets, daily range): BP systolic 112–128; BP diastolic 72–91; PULSE 74–95; RESP 16–19; TEMP 36.3–37.1; O2SAT 93–100; BMI 35.6
[2022-12-01] MEDS: HYDROmorphone 1 MG/ML Syringe IV ×3 (04:55→12:38)
[2022-12-01 05:47] LABS: Hematocrit 37.4 % (37-47); Hemoglobin 12.1 g/dL (12.0-15.0); Mean Corp Hgb Conc 32.4 g/dL (32-36); Mean Corpuscular Hgb 29.2 pg (27.0-32.0); Mean Corpuscular Volume 90.3 fL (81-99); Mean Platelet Vol. 9.1 fl (6.2-12.0); Platelet Count 273 K/mm3 (150-450); RBC Distribution Width CV 13.2 % (11.6-14.6); RBC Distribution Width SD 43.2 fl (35.1-43.9); Red Blood Count 4.14 M/mm3 (4.2-5.4); White Blood Count 6.8 K/mm3 (4.4-11.0)
[2022-12-01] MEDS: Lactated Ringers 1,000 ML 15 ML IV ×2 (05:55→18:10)
[2022-12-01 05:56] LABS: Internal QC Validated? YES +Cl - CLEAR BKGD; Pregnancy, Serum, hCG Quali. NEGATIVE Negative
[2022-12-01 05:59] LABS: Anion Gap 4 (5-15); BUN 10 mg/dL (7-18); BUN/Creat Ratio 13.6 RATIO (10-20); Calcium,Total 8.2 mg/dL (8.5-10.1); Chloride 109 mmol/L (98-107); Creatinine, Serum 0.74 mg/dL (0.55-1.02); EST Glomerular Filtration Rate 94 mL/min (>60); Est Glom Filt Rate - Afr Amer 114 mL/min (>60); Estimated Creatinine Clearance 85.27 ml/min; Glucose 98 mg/dL (74-106); Potassium 3.9 mmol/L (3.5-5.1); Sodium Level 139 mmol/L (136-145)
[2022-12-01] MEDS: 0.9% Normal Saline 1,000 ML 125 ML IV (06:12)
[2022-12-01] MEDS: 0.9% Saline Lock 10 ML Syringe IV ×2 (06:16→21:35)
[2022-12-01] MEDS: Ketorolac 15 MG/ML Vial IV ×2 (06:16→21:34)
[2022-12-01] MEDS: levoFLOXacin IV 750 MG/150 ML BAG 100 MG IV (10:03)
--- NOTE | 2022-12-01 17:36 | DCINST_ITS ---
Discharge Instructions Diet Discharge Diet: No restrictions Follow Up Care Please Follow Up With: Ben Starr MD Test Results: Test results from this visit will be discussed in further detail at your follow- up appointment, if applicable. Discharge Plan Admission Admit Date/Time: 11/30/22 07:52 Attending Provider: Ben Starr Primary Care Provider: Care Physician,No Primary Discharge Orders/Prescriptions Prescriptions: New oxycodone-acetaminophen [Percocet] 5-325 mg tablet 1 tab PO Q6H PRN (Reason: pain) 7 Days Qty: 14 0RF Continued albuterol sulfate [Ventolin HFA] 1 INHALER inhaler 1 - 2 puff inhalation Q4H PRN PRN (Reason: Asthma) Dulera 8.8 GM HFA aerosol inhaler 8.8 g IH DAILY ciprofloxacin HCl 500 MG tablet 500 mg PO BID Qty: 6 0RF Referrals / Follow Up: Ben Starr MD [Med Staff - Active Staff] - Care Physician,No Primary [Primary Care Provider] - Disposition Discharge Orders: Discharge Patient (Routine); Ordered 12/01/22 Ordered By: Dr. Ben Starr
--- NOTE | 2022-12-01 17:36 | PCM.OPRPT ---
Report of Operation Date of Procedure: 12/01/22 Pre-Operative Diagnosis: Left ureteral calculi with obstruction Post-Operative Diagnosis: The same Surgery/Procedure Performed:: Cystoscopy, left retrograde pyelogram, balloon dilation of the left ureter, left ureteroscopy basket extraction of stone, no stent Description of Surgical Findings:: Is a 37-year-old female presents to the hospital severe intractable pain in the left side with colic could not get her comfortable she was admitted to the hospital for pain control plan to take her to surgery today to remove the stone. Patient was taken back to the operating room and smooth duction of general anesthesia she was placed supine on the table and then in dorsolithotomy position. Urethra vaginal area prepped and draped in usual sterile fashion. Went in the bladder with a 21 [place] rigid cystourethroscope. Identify the left ureteral orifice. Advance a wire up the left ureter without any problems. Under fluoroscopy identified the stone in the distal ureter after retrograde pyelograms performed. I then attempted ureteroscopy but is too tight and the ureter was too swollen to go after the stone so I then advanced a balloon dilator up the ureter and balloon dilated the distal ureter with a 12 [place] 10 cm balloon dilator I had to do this 2 times and then finally after the second dilation I was able to get in the ureter with a semirigid SlimLine ureteroscope I then used a nitinol tipless basket and basketed the stone and then was able to extract the stone and then we sent the stone for analysis. Since the stone was extracted completely there was really minimal injury or trauma to the ureter I decided not to place a stent patient's bladder was drained cystoscope was removed and anesthetic was reversed and she will go home later today after the anesthetic wears off. Surgeon: Ben Starr Type of Anesthesia: General Drains: none Admit VTE Documentation VTE Present on Admission: No VTE Mechan Device Prophylaxis: SCD's VTE Pharm Prophylaxis ordered?: No
[2022-12-01] MEDS: HYDROcodone Bitartrate/Apap 5/325 Tablet PO (19:40)
[2022-12-01] MEDS: Docusate Sodium 100 MG Capsule 200 MG PO (21:35)
[2022-12-02] MEDS: 0.9% Normal Saline 1,000 ML 125 ML IV ×2 (00:14→05:58)
[2022-12-02 00:16] VITALS: BP 114/70; PULSE 68; RESP 18; TEMP 36.6; O2SAT 97
[2022-12-02 05:51] VITALS: BP 138/76; PULSE 81; RESP 18; TEMP 36.7; O2SAT 99
[2022-12-02 05:58] LABS: Hematocrit 38.3 % (37-47); Hemoglobin 12.4 g/dL (12.0-15.0); Mean Corp Hgb Conc 32.4 g/dL (32-36); Mean Corpuscular Volume 89.7 fL (81-99); Mean Platelet Vol. 8.7 fl (6.2-12.0); Platelet Count 323 K/mm3 (150-450); RBC Distribution Width CV 12.9 % (11.6-14.6); RBC Distribution Width SD 41.8 fl (35.1-43.9); Red Blood Count 4.27 M/mm3 (4.2-5.4); White Blood Count 8.8 K/mm3 (4.4-11.0)
[2022-12-02] MEDS: HYDROcodone Bitartrate/Apap 5/325 Tablet PO ×2 (05:58→07:40)
[2022-12-02 06:24] LABS: Anion Gap 7 (5-15); BUN 9 mg/dL (7-18); BUN/Creat Ratio 10.8 RATIO (10-20); Calcium,Total 8.6 mg/dL (8.5-10.1); Chloride 108 mmol/L (98-107); Creatinine, Serum 0.83 mg/dL (0.55-1.02); EST Glomerular Filtration Rate 81 mL/min (>60); Est Glom Filt Rate - Afr Amer 98 mL/min (>60); Estimated Creatinine Clearance 76.02 ml/min; Glucose 109 mg/dL (74-106); Potassium 4.2 mmol/L (3.5-5.1); Sodium Level 140 mmol/L (136-145)
--- NOTE | 2022-12-02 07:26 | PCM.DC.SUM ---
Providers Date of Admission: 11/30/22 Primary Care Physician: No Primary Care Phys Reason For Visit: KIDNEY STONE Diagnosis Discharge Diagnosis (1) Left ureteral calculus: Status: Acute Code(s): N20.1 - Calculus of ureter Plan: Admit the patient for kidney stone pain today n.p.o. at midnight plan tomorrow for surgery for stent placement left-sided shockwave lithotripsy to take care of the stone. Medications at Discharge Home Medications albuterol sulfate 90 mcg/actuation aerosol inhaler (Ventolin HFA) 1 - 2 puff inhalation Q4H PRN PRN Asthma 01/22/15 mometasone-formoterol HFA 200 mcg-5 mcg/actuation aerosol inhaler (Dulera) 8.8 g IH DAILY respiratory 01/22/15 ciprofloxacin HCl 500 mg tablet 500 mg PO BID #6 tabs 11/21/20 oxycodone-acetaminophen 5 mg-325 mg tablet (Percocet) 1 tab PO Q6H PRN pain 7 days #14 tabs 12/01/22 Hospital Course Summary of Care Provided Hospital Course: Admitted for kidney stone pain patient failed to pass a stone she was taken to surgery yesterday for ureteroscopy and basket extract extraction of a stone stuck in the distal ureter. She had some pain overnight but this morning feeling little better some burning with urination we will give her some Pyridium she will be able to go home today. Physical Exam Const alert and oriented x3 General Appearance: cooperative HEENT normocephalic, head/scalp atraumatic, EAC's normal and TM's normal bilaterally Eyes PERRL and EOMs intact bilaterally Pupil: sluggish Neck no lymphadenopathy, supple and no JVD General: trachea midline Lymph Lymphatic: no lymphadenopathy noted, lymphedema and lymphadenopathy Resp normal respiratory effort, normal air movement and clear to auscultation bilaterally Cardio regular rate, regular rhythm and peripheral pulses 2+ throughout GI soft to palpation, non-tender and non-distended Extremity normal capillary refill and no clubbing, cyanosis or edema General Extremity: no tenderness to palpation of joints or extremities Skin no rashes or lesions noted General Skin Exam: turgor normal Lesions: no lesions Rashes: no rashes Neuro CN's II-XII intact bilaterally Speech: speech normal Motor Exam: strength 5/5 throughout; Negative for general weakness Psych thought process normal, cooperative and affect normal Appearance: appropriate Medical Records Data Attestation: I reviewed the patient's medical records Weight / BMI Weight Weight: 91.2 kg Body Mass Index (BMI) 35.6 ABG / Lab / Microbiology Data Result Diagrams: 12/02/22 05:50 12/02/22 05:50 Laboratory: Laboratory Results - last 24 hr 12/02/22 05:50: WBC 8.8, RBC 4.27, Hgb 12.4, Hct 38.3, MCV 89.7, MCH 29.0, MCHC 32.4, RDW Std Deviation 41.8, RDW Coeff of [place] 12.9, Plt Count 323, MPV 8.7 12/02/22 05:50: Sodium 140, Potassium 4.2, Chloride 108 H, Carbon Dioxide 25.0, Anion Gap 7, BUN 9, Creatinine 0.83, Estim Creat Clear Calc 76.02, Est GFR (MDRD) Af Amer 98, Est GFR (MDRD) Non-Af 81, BUN/Creatinine Ratio 10.8, Glucose 109 H, Calcium 8.6 D/C Instructions Discharge Diet: No restrictions Please Follow Up With: Ben Starr MD Meaningful Use Info Meaningful Use Diagnoses (Choose all that apply): None applicable Discharge Plan Admission Admit Date/Time: 11/30/22 07:52 Attending Provider: Ben Starr Primary Care Provider: Care Physician,No Primary Discharge Orders/Prescriptions Prescriptions: New oxycodone-acetaminophen [Percocet] 5-325 mg tablet 1 tab PO Q6H PRN (Reason: pain) 7 Days Qty: 14 0RF Continued albuterol sulfate [Ventolin HFA] 1 INHALER inhaler 1 - 2 puff inhalation Q4H PRN PRN (Reason: Asthma) Dulera 8.8 GM HFA aerosol inhaler 8.8 g IH DAILY ciprofloxacin HCl 500 MG tablet 500 mg PO BID Qty: 6 0RF Referrals / Follow Up: Ben Starr MD [Med Staff - Active Staff] - Care Physician,No Primary [Primary Care Provider] - Disposition Discharge Orders: Discharge Patient (Routine); Ordered 12/01/22 Ordered By: Dr. Ben Starr
[2022-12-02 07:36] VITALS: BP 150/90; PULSE 90; RESP 20; TEMP 36.7; O2SAT 98
[2022-12-02] MEDS: Ketorolac 15 MG/ML Vial IV (07:40)
[2022-12-02] MEDS: Docusate Sodium 100 MG Capsule 200 MG PO (07:41)
[2022-12-02] MEDS: 0.9% Saline Lock 10 ML Syringe IV (07:41)
[2022-12-02] MEDS: Pantoprazole Sodium 40 MG Tablet PO (07:41)
[2022-12-02] MEDS: Phenazopyridine 95 MG Tablet 190 MG PO (07:44)
[2022-12-02] MEDS: levoFLOXacin IV 750 MG/150 ML BAG 100 MG IV (09:56)
[2022-12-02 12:25] VITALS: BP 133/81; PULSE 78; RESP 18; TEMP 36.6; O2SAT 98
[2022-12-11 14:39] LABS: Source LEFT URETERAL
== END 2022-12-02 14:40 | disposition home or self-care (01) | DRG 690 ==
LOC: ED 06:36 → MS3 08:42
PROVIDERS: Anesthesiology; Admitting Provider Urology; Emergency Provider Emergency Medicine; Visit Provider Urology
PROC: 0TJ98ZZ Inspection of Ureter, Via Natural or Artificial Opening Endoscopic (ICD-10-PCS; CPT 52352; principal; 2022-12-01 16:40)
DX: N13.6 Pyonephrosis (principal); E66.9 Obesity, unspecified; Z68.35 Body mass index [BMI] 35.0-35.9, adult; Z87.442 Personal history of urinary calculi
CPT/HCPCS: 36415; 74176; 76000; 80048; 80076; 81001; 82360; 83690; 84703; 85025; 85027; 87086; 96361; 96365; 96375; 96376; 99282; 99283; J7030; J7120; A4216; C1769; J0744; J2405

== ENCOUNTER 2022-12-03 02:11 | Emergency (ER) | payer OTHER, MEDICAID, SELFPAY ==
[2022-12-03 02:12] VITALS: BP 123/92; PULSE 69; RESP 16; TEMP 36.8; O2SAT 99; BMI 33.6
--- NOTE | 2022-12-03 02:30 | CT_ITS ---
STUDY: CT ABDOMEN AND PELVIS WITHOUT CONTRAST REASON FOR EXAM: Female, 37 years old. flank pain RADIATION DOSAGE (If Supplied By Facility): CTDIvol = ( 14.77 ) mGy, DLP = ( 808.08 ) mGycm TECHNIQUE: Transaxial images were obtained from the dome of the diaphragm to the symphysis pubis without oral contrast, and without intravenous contrast. Sagittal and coronal images were reconstructed. Individualized dose optimization techniques were used for this CT. COMPARISON: None. FINDINGS: The visualized lung bases are unremarkable. The visualized portions of the heart are within normal limits. Normal liver. Normal gallbladder and extrahepatic biliary system. Normal spleen. Normal pancreas. Normal bilateral adrenal glands. Multiple bilateral kidney stones the largest measures 3 mm. There is moderate left hydronephrosis and hydroureter may be due to recently passed stone. Normal visualized stomach. Normal small intestine. Normal colon. The appendix is visualized and appears normal. Normal abdominal aorta. Normal inferior vena cava. Normal retroperitoneum. Normal urinary bladder. Normal abdominal wall. Normal osseous structures. CT/Abdomen/Pelvis without Cont IMPRESSION: Multiple bilateral kidney stones the largest measures 3 mm. There is moderate left hydronephrosis and hydroureter may be due to recently passed stone. Electronically Signed: Kiesha Hurtado MD at 3:53 EST ,
[2022-12-03 02:37] LABS: Mucous, Urine 0 SEEN /hpf (<or=2+); White Blood Cells 0 SEEN /hpf (0-5)
[2022-12-03 02:38] LABS: Absolute Lymphocyte Count 2.46 X10^3/uL (0.83-4.51); Absolute Neutrophil Count 5.3 X10^3/uL (2.0-7.7); Basophil# 0.02 X10^3/uL; Basophil% 0.2 % (0-1); Color, Urine Yellow (Yellow); Eosinophil# 0.06 X10^3/uL; Eosinophils% 0.7 % (0-5); Glucose, Dipstick Normal (Normal); Hematocrit 40.2 % (37-47); Hemoglobin 13.4 g/dL (12.0-15.0); Ketone-Dipstick Negative (Negative); Leukocyte Esterase-Dipstick 25 /ul (Negative); Lymphocyte # 2.46 X10^3/ul (0.83-4.51); Mean Corp Hgb Conc 33.3 g/dL (32-36); Mean Corpuscular Hgb 29.4 pg (27.0-32.0); Mean Corpuscular Volume 88.2 fL (81-99); Mean Platelet Vol. 8.8 fl (6.2-12.0); Monocyte# 0.58 X10^3/uL; Monocyte% 6.8 % (0-10); NRBC Flagged by Analyzer 0 % (0-5); Neutrophil # 5.34 X10^3/uL (2.7-7.7); Neutrophil % 63.1 % (47-70); Nitrite-Dipstick Positive (Negative); Occult Blood-Urine 250 /ul (Negative); Platelet Count 365 K/mm3 (150-450); Protein-Dipstick 100 mg/dl (Negative); RBC Distribution Width CV 12.9 % (11.6-14.6); RBC Distribution Width SD 41.2 fl (35.1-43.9); Red Blood Count 4.56 M/mm3 (4.2-5.4); Urine Bilirubin Dipstick 3 mg/dL (Negative); Urine Clarity Sl. Cloudy (Clear); Urine Urobilinogen 4 mg/dl (Normal); Urine pH 6.5 (5.0 - 8.0); White Blood Count 8.5 K/mm3 (4.4-11.0)
[2022-12-03] MEDS: 0.9% Normal Saline 1,000 ML 999 ML IV (02:39)
[2022-12-03] MEDS: proCHLORPERazine 10 MG/2 ML Vial IV (02:40)
[2022-12-03] MEDS: HYDROmorphone 1 MG/ML Syringe IV ×2 (02:41→04:47)
[2022-12-03 02:48] LABS: Squamous Epithelial Cells - UA 5-10 SEEN /hpf (5-10)
[2022-12-03 02:49] LABS: Bacteria 1+ /hpf (None Seen); Red Blood Cells-Urine 10-25 SEEN /hpf (0-5)
[2022-12-03 03:00] LABS: AST(SGOT) 8 U/L (15-37); Alanine Aminotransfer ALT/SGPT 21 U/L (13-56); Albumin, Serum 3.3 g/dL (3.2-5.0); Alkaline Phosphatase 80 U/L (45-117); Anion Gap 5 (5-15); BUN 17 mg/dL (7-18); BUN/Creat Ratio 17.5 RATIO (10-20); Bilirubin, Direct 0.07 mg/dL (0.00-0.30); Calcium,Total 9.1 mg/dL (8.5-10.1); Chloride 110 mmol/L (98-107); Creatinine, Serum 0.97 mg/dL (0.55-1.02); EST Glomerular Filtration Rate 68 mL/min (>60); Est Glom Filt Rate - Afr Amer 82 mL/min (>60); Estimated Creatinine Clearance 65.05 ml/min; Globulin 4.1 g/dL (2.2-4.2); Glucose 105 mg/dL (74-106); Lipase 56 U/L (73-393); Potassium 3.7 mmol/L (3.5-5.1); Protein, Total 7.4 g/dL (6.4-8.2); Sodium Level 141 mmol/L (136-145)
--- NOTE | 2022-12-03 04:36 | EX.ED.DYSGE1 ---
HPI History of Present Illness Chief Complaint: Abd Pain Narrative Narrative: Patient is a 37-year-old female with past medical history of anxiety depression and lupus. She recently underwent a balloon dilation of the left ureter with stone extraction on December 01. She states she was feeling better and has been taking her Zofran and Percocet as directed. She states she was able to get to sleep this evening but then awoke about 1 to 2 hours prior to arrival with increasing left-sided abdominal/flank pain and bouts of nausea and vomiting. She states that the pain feels similar nature to her previous stone and as she cannot get the pain under control at home presents to the hospital for evaluation. She denies any fevers or chills or trauma since leaving the hospital but does states she has noticed increased urination PFSH PFSH Medical History Anxiety Asthma delivery delivered Chest pain Chronic headaches Chronic pain Depression High cholesterol Kidney stones Lupus Tonsillectomy planned Home Medications albuterol sulfate 90 mcg/actuation aerosol inhaler (Ventolin HFA) 1 - 2 puff inhalation Q4H PRN PRN Asthma 01/22/15 [History Last Taken 10/29/16 08:00 1-2] mometasone-formoterol HFA 200 mcg-5 mcg/actuation aerosol inhaler (Dulera) 8.8 g IH DAILY respiratory 01/22/15 [History Last Taken 10/17/17] ciprofloxacin HCl 500 mg tablet 500 mg PO BID #6 tabs 11/21/20 [Rx Last Taken Unknown] oxycodone-acetaminophen 5 mg-325 mg tablet (Percocet) 1 tab PO Q6H PRN pain 7 days #14 tabs 12/01/22 [Rx Last Taken Unknown] cephalexin 500 mg capsule 500 mg PO TID 7 days #21 caps 12/03/22 [Rx Last Taken Unknown] morphine 15 mg tablet,extended release (MS Contin) 15 mg PO BID PRN PRN pain 5 days #10 tabs 12/03/22 [Rx Last Taken Unknown] promethazine 25 mg tablet 25 mg PO TID PRN nausea and vomiting #21 tabs 12/03/22 [Rx Last Taken Unknown] Allergy/AdvReac Type Severity Reaction Status Date / Time benzonatate Allergy Mild Swelling Verified 01/17/23 03:55 [From Annika Espinosa] Social History Smoking Status: Never smoker ROS ROS ED Constitutional Constitutional ED: Denies chills or fever(s) ENT ENT ED: Denies sore throat Cardiovascular Cardiovascular: Denies chest pain Respiratory/Chest Respiratory/Chest: Denies cough or dyspnea Gastrointestinal Gastrointestinal: Reports abdominal pain, nausea and vomiting; Denies diarrhea Genitourinary Genitourinary ED: Reports hematuria and urinary frequency; Denies dysuria Musculoskeletal Musculoskeletal: Reports back pain Integumentary Denies rash Neurologic Neurologic: Denies headache(s) Hematologic/Lymphatic Hematologic/Lymphatic: Denies easy bleeding or easy bruising EXAM Physical Exam Const Vital Signs: 12/03/22 02:12 12/03/22 04:50 Temperature 98.3 F Temperature Source Temporal Pulse Rate 69 76 Respiratory Rate 16 16 Blood Pressure 123/92 H Blood Pressure Mean 102 Pulse Ox 99 98 Oxygen Delivery Method Room Air Room Air Positive well nourished, well developed and obese General Appearance ED: well developed Nutritional Appearance: obese Eyes PERRL and EOMs intact bilaterally Neck supple Resp normal respiratory effort and clear to auscultation bilaterally Cardio regular rate and regular rhythm Rate: other Other Details: Radial pulses are plus 2 out of 4 bilaterally are equal and symmetric GI non-distended GI Narrative: Abdomen is soft and nondistended with normoactive bowel sounds. Patient has pain on palpation around the left upper quadrant of the abdomen and this tracks towards the left flank. There is no voluntary guarding or rigidity. No pulsatile mass. No ecchymosis or erythema. No increased tympany Auscultation: normoactive bowel sounds Palpation: soft Back/Spine Back/Spine Narrative: Positive left CVA pain Extremity normal to inspection Neuro oriented x3 and CN's II-XII intact bilaterally Sensorium / Orientation: alert Psych Psych Narrative: Patient has a nervous/anxious affect Skin no rashes or lesions noted MDM MDM MDM Narrative Medical decision making narrative: Patient presented to the ER with stable vitals. She recently had a surgical procedure to help with stone extraction on the left. There is concern that patient may have developed a repeat kidney stone causing obstruction based on her sudden onset increased pain this evening or developed a secondary infection or even had a postsurgical complication such as ureteral rupture. Secondary to this basic blood work as well as a urine sample and a noncontrast CT were ordered. Labs show no leukocytosis or left shift. No signs of acute kidney injury or severe electrolyte derangement. Urine does show blood consistent with recent stone as well as changes to suggest infection which do correlate with her report of urinary frequency and recent instrumentation. At this time the patient is not displaying changes consistent with urosepsis or acute kidney injury. The CT scan shows stones within both kidneys but there is no retained stone in the left ureter just dilation consistent with the surgical report and recently passed stone. Patient was given Toradol 2 doses of Dilaudid and Compazine and had improvement of symptoms. Therefore at this time as the work-up does not reveal any acute infectious process or signs of acute kidney injury I feel patient can be discharged home as her pain is reducing and can follow-up with urology on an outpatient basis Lab Data Attestation: I reviewed the patient's lab results. Labs: Laboratory Results - last 24 hr 12/03/22 12/03/22 12/03/22 02:25 02:25 02:25 WBC 8.5 RBC 4.56 Hgb 13.4 Hct 40.2 MCV 88.2 MCH 29.4 MCHC 33.3 RDW Std Deviation 41.2 RDW Coeff of [place] 12.9 Plt Count 365 MPV 8.8 Immature Gran % (Auto) 0.200 Neut % (Auto) 63.1 Lymph % (Auto) 29.0 [place] % (Auto) 6.8 Eos % (Auto) 0.7 Baso % (Auto) 0.2 Absolute Neuts (auto) 5.3 Absolute Lymphs (auto) 2.46 Nucleated RBC % 0 Sodium 141 Potassium 3.7 Chloride 110 H Carbon Dioxide 26.0 Anion Gap 5 BUN 17 Creatinine 0.97 Estim Creat Clear Calc 65.05 Est GFR (MDRD) Af Amer 82 Est GFR (MDRD) Non-Af 68 BUN/Creatinine Ratio 17.5 Glucose 105 Calcium 9.1 Total Bilirubin 0.20 Direct Bilirubin 0.07 AST 8 L ALT 21 Alkaline Phosphatase 80 Total Protein 7.4 Albumin 3.3 Globulin 4.1 Lipase 56 L Urine Color Yellow Urine Clarity Sl. Cloudy Urine pH 6.5 Ur Specific [place] 1.020 Urine Protein 100 H Urine Glucose (UA) Normal Urine Ketones Negative Urine Occult Blood 250 H Urine Nitrite Positive H Urine Bilirubin 3 H Urine Urobilinogen 4 H Ur Leukocyte Esterase 25 H Urine RBC 10-25 SEEN Urine WBC 0 SEEN Ur Squamous Epith Cells 5-10 SEEN Urine Bacteria 1+ Urine Mucus 0 SEEN Radiography Diagnostic Testing: Clinical Impression(s) from Imaging Studies Abdomen/Pelvis CT 12/03/22 02:30 IMPRESSION: Multiple bilateral kidney stones the largest measures 3 mm. There is moderate left hydronephrosis and hydroureter may be due to recently passed stone. Electronically Signed: Kiesha Hurtado MD at 3:53 EST , Discharge Plan Triage Chief Complaint: Abd Pain ED Provider: Moiz Vanegas Dx/Rx/DC Orders Clinical Impression: Hydroureteronephrosis, Post-operative pain, UTI (urinary tract infection) Instructions: Urinary Tract Infections in Women, Understanding Hydronephrosis Prescriptions: New morphine [MS Contin] 15 mg tablet extended release 15 mg PO BID PRN PRN (Reason: pain) 5 Days Qty: 10 0RF cephalexin 500 mg capsule 500 mg PO TID 7 Days Qty: 21 0RF promethazine 25 mg tablet 25 mg PO TID PRN (Reason: nausea and vomiting) Qty: 21 0RF No Action albuterol sulfate [Ventolin HFA] 1 INHALER inhaler 1 - 2 puff inhalation Q4H PRN PRN (Reason: Asthma) Dulera 8.8 GM HFA aerosol inhaler 8.8 g IH DAILY ciprofloxacin HCl 500 MG tablet 500 mg PO BID Qty: 6 0RF oxycodone-acetaminophen [Percocet] 5-325 mg tablet 1 tab PO Q6H PRN (Reason: pain) 7 Days Qty: 14 0RF Primary Care Provider: Care Physician,No Primary Referrals: Ben Starr MD [Med Staff - Active Staff] - Care Physician,No Primary [Primary Care Provider] - Activity Restrictions/Additional Instructions: Please take the MS Contin as directed twice a day and you can still continue the Percocet for breakthrough pain and use [id number] Motrin/Advil/ibuprofen if pain persists. You may stop the Zofran and switch to Phenergan/promethazine for improved nausea control. Follow-up with your urologist for repeat evaluation and return to the ER should you have any further concerns Disposition Disposition: Home, Self Care Discharge Date/Time: 12/03/22 05:29
[2022-12-03] MEDS: Ketorolac 30 MG/ML Syringe IV (04:45)
[2022-12-03] MEDS: Ceftriaxone 1 GM/50 ML BAG IV (04:48)
[2022-12-03 04:50] VITALS: PULSE 76; RESP 16; O2SAT 98
== END 2022-12-03 05:29 | disposition home or self-care (01) ==
PROVIDERS: Emergency Provider Emergency Medicine; Visit Provider Emergency Medicine
DX: N13.30 Unspecified hydronephrosis (principal); N39.0 Urinary tract infection, site not specified; E66.9 Obesity, unspecified
CPT/HCPCS: 74176; 80048; 80076; 81001; 83690; 85025; 87086; 96361; 96365; 96375; 96376; 99282; J7030; A4216

== ENCOUNTER → 2023-08-20 | Outpatient (CLI) | payer OTHER, SELFPAY ==
--- NOTE | 2023-08-20 07:02 | MRI_ITS ---
INDICATION: STRAIN MUSCLE FASCIA, FELL FROM LADDER 07/23/23 EXAMINATION: MRI - MR Spine Cervical W/O Contrast TECHNIQUE: Multiplanar and multisequence MR images of the cervical spine were performed. IV Contrast Dosage and Agent: None. COMPARISON: None. FINDINGS: VERTEBRAE: At T3 inferiorly and anteriorly there is a low signal lesion 7 mm in AP dimension. This could represent bone island. Metabolically active lesion cannot be excluded. VERTEBRAL ALIGNMENT: Normal, including the craniocervical junction and cervicothoracic junction. Mild reversal of the cervical lordosis with its apex at C5. This is likely due to spasm. CERVICAL SPINAL CORD: Mild flattening the cord anteriorly at C4-5, moderate flattening the cord anteriorly eccentric to the right C5-6 due to pathology detailed below. C2/C3: Normal disc height and morphology. Normal spinal canal and neuroforamina. C3/C4: Normal disc height and morphology. Normal spinal canal and neuroforamina. C4/C5: Moderate disc desiccation, mild disc bulging, borderline central stenosis, bilateral facet arthropathy and uncovertebral joint disease with mild bilateral neural foraminal encroachment C5/C6: Moderate disc desiccation, moderate central-right paracentral disc herniation, mild central stenosis with AP thecal sac 9 mm. Mild bilateral facet arthropathy and uncovertebral joint disease with mild bilateral neural foraminal encroachment. C6/C7: Normal disc height and morphology. Normal spinal canal and neuroforamina. C7/T1: Normal disc height and morphology. Normal spinal canal and neuroforamina. NECK SOFT TISSUES: No prevertebral soft tissue swelling. There is no cervical adenopathy. MRI/Spine Cervical (Routine) IMPRESSION: Moderate Central venous right paracentral disc herniation C5-6. C4-5 mild disc bulging. T3 inferiorly and anteriorly low signal lesion which could represent bone island. Metabolically active lesion cannot be excluded. Multilevel degenerative disc disease, flattening of the cord anteriorly, central stenosis, facet arthropathy, uncovertebral joint disease and neural foraminal encroachment as above. Electronically Signed: Johnathan Lorenz MD at 9:53 EDT ,
== END | disposition home or self-care (01) ==
LOC: MRI 11:20
DX: S16.1XXA Strain of muscle, fascia and tendon at neck level, initial encounter (principal); W11.XXXA Fall on and from ladder, initial encounter
CPT/HCPCS: 72141

== ENCOUNTER 2023-11-28 10:14 | Emergency (ER) | payer MEDICAID, SELFPAY ==
[2023-11-28 10:14] VITALS: BP 163/114; PULSE 107; RESP 24; TEMP 35.9; O2SAT 99; BMI 30.7
--- NOTE | 2023-11-28 10:27 | EKG12_ITS ---
Test Reason : SOB Blood Pressure : / mmHG Vent. Rate : 102 BPM Atrial Rate : 102 BPM P-R Int : 160 ms QRS Dur : 072 ms QT Int : 344 ms P-R-T Axes : 042 -04 013 degrees QTc Int : 448 ms Sinus tachycardia with frequent Premature ventricular complexes and Fusion complexes Otherwise normal ECG Confirmed by SAMAN CHAN, VILMA ([id number]), editorial writer ZA NOYOLA ([id number]) on 11/30/2023 9:10:40 AM Referred By: Confirmed By:VILMA DAVISON MD
--- NOTE | 2023-11-28 10:27 | RAD_ITS ---
STUDY: X-RAY CHEST REASON FOR EXAM: Female, 38 years old. Chronic cough. Shortness of breath. TECHNIQUE: Single AP portable view of the chest. COMPARISON: Comparison is made with prior study dated November 05, 2014. FINDINGS: EKG electrodes are seen. Limited inspiratory effort with the mild bibasilar atelectasis. There is no demonstrated pleural abnormality. Normal size heart. Normal mediastinum and chencho. Normal visualized pulmonary arteries. Normal visualized aortic arch and descending thoracic aorta. Normal visualized thoracic spine. Normal visualized ribs, clavicles, and shoulders. There is no demonstrated abnormality of the visualized soft tissue structures of the upper abdomen. RAD/Chest 1 View (Portable) IMPRESSION: Limited inspiratory effort. Mild bibasilar atelectasis. Electronically Signed: Nazario Scott MD at 11:16 EST ,
--- NOTE | 2023-11-28 10:28 | EX.ED.DYSGE1 ---
HPI History of Present Illness Chief Complaint: General Illness Informant: patient Narrative Narrative: Patient presents with cough has been ongoing for quite some time. She states it actually got better but now over the last 5 days has had worsened cough, shortness of breath, chest tightness. She reports a fever up to 100.6. She went to urgent care this morning with a given aerosol treatment and because it did not improve her symptoms was told to come to the emergency room. She does report a history of asthma but states she has not required an inhaler for several years. [facility] Medical History Anxiety Asthma delivery delivered Chest pain Chronic headaches Chronic pain Depression High cholesterol Kidney stones Lupus Tonsillectomy planned Home Medications albuterol sulfate 90 mcg/actuation aerosol inhaler (Ventolin HFA) 1 - 2 puff inhalation Q4H PRN PRN Asthma 01/22/15 [History Last Taken 10/29/16 08:00 1-2] mometasone-formoterol HFA 200 mcg-5 mcg/actuation aerosol inhaler (Dulera) 8.8 g IH DAILY respiratory 01/22/15 [History Last Taken 10/17/17] ciprofloxacin HCl 500 mg tablet 500 mg PO BID #6 tabs 11/21/20 [Rx Last Taken Unknown] oxycodone-acetaminophen 5 mg-325 mg tablet (Percocet) 1 tab PO Q6H PRN pain 7 days #14 tabs 12/01/22 [Rx Last Taken Unknown] cephalexin 500 mg capsule 500 mg PO TID 7 days #21 caps 12/03/22 [Rx Last Taken Unknown] morphine 15 mg tablet,extended release (MS Contin) 15 mg PO BID PRN PRN pain 5 days #10 tabs 12/03/22 [Rx Last Taken Unknown] promethazine 25 mg tablet 25 mg PO TID PRN nausea and vomiting #21 tabs 12/03/22 [Rx Last Taken Unknown] albuterol sulfate 90 mcg/actuation aerosol inhaler (Ventolin HFA) 2 puff inhalation Q4H PRN PRN Wheezing ##1 11/28/23 [Rx Last Taken Unknown] prednisone 20 mg tablet 40 mg (2 x 20 mg) PO DAILY #10 tabs 11/28/23 [Rx Last Taken Unknown] Allergy/AdvReac Type Severity Reaction Status Date / Time benzonatate Allergy Mild Swelling Verified 11/30/22 03:55 [From Annika Espinosa] Social History Smoking Status: Never smoker ROS ROS ED Constitutional Constitutional ED: Reports fever(s); Denies chills Eyes Eyes: Denies change in vision or discharge from eye(s) ENT ENT ED: Denies discharge from eye(s), rhinorrhea or sore throat Cardiovascular Cardiovascular: Reports chest pain and palpitations Respiratory/Chest Respiratory/Chest: Reports cough and dyspnea Gastrointestinal Gastrointestinal: Reports nausea; Denies abdominal pain or vomiting Genitourinary Genitourinary ED: Denies dysuria Musculoskeletal Musculoskeletal: Reports myalgias; Denies back pain or extremity pain Integumentary Denies Abrasions or rash Neurologic Neurologic: Denies headache(s) or weakness Psychiatric Psychiatric: Denies anxiety or depression Allergic/Immunologic Allergic/Immunologic ED: Denies lip swelling or urticaria EXAM Physical Exam Const Vital Signs: 11/28/23 10:14 11/28/23 10:54 11/28/23 10:55 Temperature 96.6 F L Temperature Source Temporal Pulse Rate 107 H 102 H Respiratory Rate 24 H 30 H Respiratory Effort Short of Breath Blood Pressure 163/114 H Blood Pressure Mean 130 Pulse Ox 99 96 Oxygen Delivery Method Room Air Room Air 11/28/23 12:16 Temperature Temperature Source Pulse Rate 95 Respiratory Rate 23 H Respiratory Effort Blood Pressure Blood Pressure Mean Pulse Ox 99 Oxygen Delivery Method Positive well nourished and well developed General Appearance ED: well developed HEENT Reports moist mucous membranes Eyes EOMs intact bilaterally Chest Wall inspection of chest normal and palpation of chest normal Resp normal respiratory effort and clear to auscultation bilaterally Cardio regular rate and regular rhythm GI non-tender Palpation: soft Extremity normal to inspection Neuro oriented x3 and no sensory deficits noted Motor Exam: strength 5/5 throughout Psych mental status grossly normal Skin no rashes or lesions noted MDM MDM MDM Narrative Medical decision making narrative: Patient placed on director of partner marketing. EKG obtained to evaluate for cardiac arrhythmia/ischemia. Chest x-ray obtained to evaluate for acute lung pathology, cardiac size, or mediastinal abnormality. IV line initiated. Labwork obtained to evaluate for leukocytosis, anemia, and electrolyte derangement. Swab for COVID, influenza, and RSV obtained. History & Record Review Discussion w/independent historian: Patient Lab Data Attestation: I reviewed the patient's lab results. Labs: Laboratory Results - last 24 hr 11/28/23 10:36 WBC 6.4 RBC 4.97 Hgb 14.2 Hct 43.5 MCV 87.5 MCH 28.6 MCHC 32.6 RDW Std Deviation 40.9 RDW Coeff of [place] 12.7 Plt Count 343 MPV 8.2 Immature Gran % (Auto) 0.300 Neut % (Auto) 65.6 Lymph % (Auto) 27.4 [place] % (Auto) 4.5 Eos % (Auto) 1.9 Baso % (Auto) 0.3 Absolute Neuts (auto) 4.2 Absolute Lymphs (auto) 1.76 Nucleated RBC % 0 D-Dimer Quant (PE/DVT) 0.54 H* Sodium 142 Potassium 3.6 Chloride 112 H Carbon Dioxide 24.0 Anion Gap 6 BUN 9 Creatinine 0.66 Estim Creat Clear Calc 113.60 Est GFR (MDRD) Af Amer 129 Est GFR (MDRD) Non-Af 107 BUN/Creatinine Ratio 13.7 Glucose 95 Calcium 8.8 Troponin I High Sens 13 Serum , Qual NEGATIVE Radiography Chest X-Ray - ED: 1 View, Read by ED Physician and No Infiltrates Diagnostic Testing: Clinical Impression(s) from Imaging Studies Chest X-Ray 11/28/23 10:27 IMPRESSION: Limited inspiratory effort. Mild bibasilar atelectasis. Electronically Signed: Nazario Scott MD at 11:16 EST , Chest CTA 11/28/23 11:06 IMPRESSION: No acute abnormality is seen. Electronically Signed: Nazario Scott MD at 12:15 EST , EKG Initial EKG: Attestation: I personally reviewed and interpreted this EKG as follows: Interpretation: Sinus Tachycardia (Sinus tach at 102. Frequent PVCs. No acute ischemia.) Treatment and Re-Evaluation :: CBC was normal white count 6.4 with a hemoglobin of 14.2. Differential unremarkable. D-dimer slightly elevated at 0.54. Chemistry studies unremarkable. Troponin normal at 13. test negative. Portable chest x-ray per my interpretation reveals no evidence of focal infiltrate. Radiology interpretation reviewed and feels there is mild bibasilar atelectasis with poor inspiration. EKG is sinus tachycardia with occasional PVCs. CTA of the chest is obtained and reveals no evidence of pulmonary embolism. COVID and RSV swab is negative. Patient's flu swab is positive for influenza A. Test results discussed with patient and family at bedside. She is already greater than 3 days of symptoms and therefore not a candidate for Tamiflu. I will treat her with prednisone and give her a new albuterol inhaler as she does have underlying asthma as well. Return instructions given. Discharge Plan Triage Chief Complaint: General Illness ED Provider: Alisa Nogueira Dx/Rx/DC Orders Clinical Impression: Asthma exacerbation, Influenza A Instructions: ED Asthma, Acute (Adult), ED Influenza (Adult) Prescriptions: New albuterol sulfate [Ventolin HFA] 90 mcg/actuation HFA aerosol inhaler 2 puff inhalation Q4H PRN PRN (Reason: Wheezing) Qty: 1 0RF prednisone 20 mg tablet 40 mg PO DAILY Qty: 10 0RF No Action albuterol sulfate [Ventolin HFA] 1 INHALER inhaler 1 - 2 puff inhalation Q4H PRN PRN (Reason: Asthma) Dulera 8.8 GM HFA aerosol inhaler 8.8 g IH DAILY ciprofloxacin HCl 500 MG tablet 500 mg PO BID Qty: 6 0RF oxycodone-acetaminophen [Percocet] 5-325 mg tablet 1 tab PO Q6H PRN (Reason: pain) 7 Days Qty: 14 0RF morphine [MS Contin] 15 mg tablet extended release 15 mg PO BID PRN PRN (Reason: pain) 5 Days Qty: 10 0RF cephalexin 500 mg capsule 500 mg PO TID 7 Days Qty: 21 0RF promethazine 25 mg tablet 25 mg PO TID PRN (Reason: nausea and vomiting) Qty: 21 0RF Primary Care Provider: Jin Castro Referrals: Jin Castro MD [Primary Care Provider] - 1 Week Care Physician,No Primary [Non-Staff] - Disposition Disposition: Home, Self Care
--- NOTE | 2023-11-28 10:30 | NURSING ---
NO OLD EKGS
[2023-11-28 10:53] LABS: Absolute Lymphocyte Count 1.76 X10^3/uL (0.83-4.51); Absolute Neutrophil Count 4.2 X10^3/uL (2.0-7.7); Basophil# 0.02 X10^3/uL; Basophil% 0.3 % (0-1); Eosinophil# 0.12 X10^3/uL; Eosinophils% 1.9 % (0-5); Hematocrit 43.5 % (37-47); Hemoglobin 14.2 g/dL (12.0-15.0); Lymphocyte # 1.76 X10^3/ul (0.83-4.51); Lymphocyte % 27.4 % (19-41); Mean Corp Hgb Conc 32.6 g/dL (32-36); Mean Corpuscular Hgb 28.6 pg (27.0-32.0); Mean Corpuscular Volume 87.5 fL (81-99); Mean Platelet Vol. 8.2 fl (6.2-12.0); Monocyte# 0.29 X10^3/uL; Monocyte% 4.5 % (0-10); NRBC Flagged by Analyzer 0 % (0-5); Neutrophil # 4.22 X10^3/uL (2.7-7.7); Neutrophil % 65.6 % (47-70); Platelet Count 343 K/mm3 (150-450); RBC Distribution Width CV 12.7 % (11.6-14.6); RBC Distribution Width SD 40.9 fl (35.1-43.9); Red Blood Count 4.97 M/mm3 (4.2-5.4); White Blood Count 6.4 K/mm3 (4.4-11.0)
[2023-11-28 10:54] VITALS: PULSE 102; RESP 30; O2SAT 96
[2023-11-28 10:59] LABS: Internal QC Validated? YES +Cl - CLEAR BKGD; Pregnancy, Serum, hCG Quali. NEGATIVE Negative
[2023-11-28 11:00] LABS: Record Kit Lot#, Serum Preg. HCG0000667200
[2023-11-28 11:02] LABS: D-Dimer Quantitative (DVT/PE) 0.54 FEU/ug/m (0.27-0.49)
[2023-11-28 11:03] LABS: Anion Gap 6 (5-15); BUN 9 mg/dL (7-18); BUN/Creat Ratio 13.7 RATIO (10-20); Calcium,Total 8.8 mg/dL (8.5-10.1); Chloride 112 mmol/L (98-107); Creatinine, Serum 0.66 mg/dL (0.55-1.02); EST Glomerular Filtration Rate 107 mL/min (>60); Est Glom Filt Rate - Afr Amer 129 mL/min (>60); Glucose 95 mg/dL (74-106); Potassium 3.6 mmol/L (3.5-5.1); Sodium Level 142 mmol/L (136-145); Troponin-I HS 13 pg/mL (3.0-54.0)
--- NOTE | 2023-11-28 11:06 | CT_ITS ---
STUDY: CTA CHEST REASON FOR EXAM: Female, 38 years old. Sob, elevated d-dimer RADIATION DOSAGE (If Supplied By Facility): CTDIvol = ( 11.37 ) mGy, DLP = ( 466.87 ) mGycm TECHNIQUE: The examination was performed with the intravenous administration of IV 100mL [id number]-370. Post-processing of the angiographic images was performed, with multiplanar reformation and 3D reconstruction. Individualized dose optimization techniques were used for this CT. COMPARISON: Comparison is made with prior chest radiograph done earlier in the day. FINDINGS: Normal enhancement of the main pulmonary artery and right and left pulmonary arteries. Normal enhancement of the bilateral peripheral pulmonary arteries. There is no demonstrated pulmonary embolism. Normal thoracic aorta and visualized great vessels. There is no demonstrated aortic dissection. Normal heart and pericardium. Normal mediastinum. Normal hilar regions. Normal visualized trachea and bronchi. The lungs are well expanded. Normal pulmonary parenchyma. Normal pleura. Normal chest wall structures. There are mild degenerative changes of thoracic spine. There is a small hiatal hernia. CT/CTA Chest W/WO Contrast IMPRESSION: No acute abnormality is seen. Electronically Signed: Nazario Scott MD at 12:15 [facility] ,
[2023-11-28 12:16] VITALS: PULSE 95; RESP 23; O2SAT 99
[2023-11-28 12:47] VITALS: PULSE 95; RESP 19; O2SAT 99
== END 2023-11-28 12:48 | disposition home or self-care (01) ==
PROVIDERS: Emergency Provider Emergency Medicine; PCP Family Medicine; Visit Provider Emergency Medicine
DX: J45.901 Unspecified asthma with (acute) exacerbation (principal); J10.1 Influenza due to other identified influenza virus with other respiratory manifestations
CPT/HCPCS: 71045; 71275; 80048; 84484; 84703; 85025; 85379; 87631; 93005; 99284; Q9967; A4216

== ENCOUNTER 2023-12-24 15:22 | Emergency (ER) | payer OTHER, MEDICAID, SELFPAY ==
[2023-12-24 15:23] VITALS: BP 155/102; PULSE 122; RESP 14; TEMP 37.2; O2SAT 99; BMI 38.1
--- NOTE | 2023-12-24 16:23 | EDS_ITS ---
HPI <SHELLY Lindsey - Last Filed: 12/24/23 16:32> History of Present Illness Chief Complaint: Ear Problem Narrative Narrative: Patient is a 38-year-old female with no significant medical history presents to the emergency department with complaints of left ear pain. Patient states she was at work today, when she started having significant left ear pain. She recently got over influenza couple weeks ago. Patient also here with her daughter who has had a cough for multiple weeks. Patient states that she is never had pain in her ear like this before. She is having difficulty hearing. PFSH <SHELLY Lindsey - Last Filed: 12/24/23 16:32> [facility], [facility] Medical History Anxiety Asthma delivery delivered Chest pain Chronic headaches Chronic pain Depression High cholesterol Kidney stones Lupus Tonsillectomy planned Home Medications albuterol sulfate 90 mcg/actuation aerosol inhaler (Ventolin HFA) 1 - 2 puff inhalation Q4H PRN PRN Asthma 01/22/15 [History Last Taken 10/29/16 08:00 1-2] mometasone-formoterol HFA 200 mcg-5 mcg/actuation aerosol inhaler (Dulera) 8.8 g IH DAILY respiratory 01/22/15 [History Last Taken 10/17/17] ciprofloxacin HCl 500 mg tablet 500 mg PO BID #6 tabs 11/21/20 [Rx Last Taken Unknown] oxycodone-acetaminophen 5 mg-325 mg tablet (Percocet) 1 tab PO Q6H PRN pain 7 days #14 tabs 12/01/22 [Rx Last Taken Unknown] cephalexin 500 mg capsule 500 mg PO TID 7 days #21 caps 12/03/22 [Rx Last Taken Unknown] morphine 15 mg tablet,extended release (MS Contin) 15 mg PO BID PRN PRN pain 5 days #10 tabs 12/03/22 [Rx Last Taken Unknown] promethazine 25 mg tablet 25 mg PO TID PRN nausea and vomiting #21 tabs 12/03/22 [Rx Last Taken Unknown] albuterol sulfate 90 mcg/actuation aerosol inhaler (Ventolin HFA) 2 puff inhalation Q4H PRN PRN Wheezing ##1 11/28/23 [Rx Last Taken Unknown] prednisone 20 mg tablet 40 mg (2 x 20 mg) PO DAILY #10 tabs 11/28/23 [Rx Last Taken Unknown] amoxicillin 875 mg tablet 875 mg PO BID #20 tabs 12/24/23 [Rx Last Taken Unknown] amoxicillin 875 mg-potassium clavulanate 125 mg tablet 1 tab PO BID #20 tabs 12/24/23 [Rx Last Taken Unknown] ibuprofen 600 mg tablet 600 mg PO Q6H PRN PRN pain #20 TABLETS 12/24/23 [Rx Last Taken Unknown] Allergy/AdvReac Type Severity Reaction Status Date / Time benzonatate Allergy Mild Swelling Verified 12/24/23 15:22 [From Annika Espinosa] Social History Smoking Status: Never smoker ROS <SHELLY Lindsey - Last Filed: 12/24/23 16:32> ROS ED ROS Narrative Constitutional: No fever, no chills. HEENT: No sore throat. No neck pain. No loss of vision. No rhinorrhea. Positive for left ear pain Cardiovascular: No chest pain. No palpitations. No pedal edema. Respiratory: No cough, no shortness of breath. Abdominal: No abdominal pain. No nausea. No vomiting. Genitourinary: No dysuria. No hematuria. Musculoskeletal: No myalgias. No arthralgias. Neurologic: No headaches. No dizziness. No lightheadedness. Skin: No rash. No change in color. Psychiatric: No depression. No anxiety. EXAM <SHELLY Lindsey - Last Filed: 12/24/23 16:32> Physical Exam Narrative Exam Narrative: Afebrile. Vital signs noted. HEENT: Normocephalic. Atraumatic. PERRL, patient's right TM was unremarkable, left TM shows erythema, bulging of the left TM this is consistent with acute otitis media. Neck soft and supple. No point tenderness or step off. Cardiovascular: Regular rate and rhythm. No murmurs, rubs, or gallops appreciated. Respiratory: No tachypnea. Lungs clear to auscultation bilaterally. Gastrointestinal: Abdomen soft, nontender, with normoactive bowel sounds. No rebound or guarding. Neurological: Awake. Alert. Nonfocal, nonlateralizing. Skin: No rash. Normal color. No pallor. Musculoskeletal: No pedal edema. Full range of motion extremities. Const Vital Signs: 12/24/23 15:23 Temperature 99 F Temperature Source Temporal Pulse Rate 122 H Respiratory Rate 14 Blood Pressure 155/102 H Blood Pressure Mean 119 Pulse Ox 99 Oxygen Delivery Method Room Air <Dr. Alejandro Mercado, - Last Filed: 12/24/23 21:32> Physical Exam Const Vital Signs: 12/24/23 15:23 Temperature 99 F Temperature Source Temporal Pulse Rate 122 H Respiratory Rate 14 Blood Pressure 155/102 H Blood Pressure Mean 119 Pulse Ox 99 Oxygen Delivery Method Room Air [facility] <SHELLY Lindsey - Last Filed: 12/24/23 16:32> [facility] Treatment and Re-Evaluation :: Patient appears to be in mild distress secondary to left ear pain. Presented to the emerged part with 1 day of left ear pain as well as intermittent cough. Differential diagnosis includes viral syndrome, acute otitis media, serous otitis media, perforated eardrum. Physical examination is consistent with acute otitis media in the left ear. Patient did not take any ibuprofen or Tylenol today. At this time, patient be treated with amoxicillin 875 mg twice a day, as well as ibuprofen. Patient will follow-up outpatient. All questions were answered, patient stable for discharge. <Dr. Alejandro Mercado, - Last Filed: 12/24/23 21:32> [facility] Narrative Medical decision making narrative: Patient appears to be in mild distress secondary to left ear pain. Presented to the emerged part with 1 day of left ear pain as well as intermittent cough. Differential diagnosis includes viral syndrome, acute otitis media, serous otitis media, perforated eardrum. Physical examination is consistent with acute otitis media in the left ear. Patient did not take any ibuprofen or Tylenol today. At this time, patient be treated with amoxicillin 875 mg twice a day, as well as ibuprofen. Patient will follow-up outpatient. All questions were answered, patient stable for discharge. This patient was seen with a PA/CREDIT COLLECTION SPECIALIST Individually assessed they patient including history and physical. I have reviewed everything on the chart that is available and agree with the documentation provided by the PA/CREDIT COLLECTION SPECIALIST including discussion a bout the assessment, treatment plan, discussion, and return precautions. Patient seen and evaluated with nurse practitioner patient has otitis media. Patient will be started on Augmentin. First dose in the ED. Tylenol and ibuprofen for pain. Discharge Plan Triage Chief Complaint: Ear Problem ED Midlevel Provider: Juan J Lorenz ED Provider: Alejandro Mercado Dx/Rx/DC Orders Clinical Impression: URI (upper respiratory infection), Acute otitis media Instructions: ED Otitis Media Adult Prescriptions: New amoxicillin 875 mg tablet 875 mg PO BID Qty: 20 0RF ibuprofen 600 mg tablet 600 mg PO Q6H PRN PRN (Reason: pain) Qty: 20 0RF amoxicillin-pot clavulanate 875-125 mg tablet 1 tab PO BID Qty: 20 0RF No Action albuterol sulfate [Ventolin HFA] 1 INHALER inhaler 1 - 2 puff inhalation Q4H PRN PRN (Reason: Asthma) Dulera 8.8 GM HFA aerosol inhaler 8.8 g IH DAILY ciprofloxacin HCl 500 MG tablet 500 mg PO BID Qty: 6 0RF oxycodone-acetaminophen [Percocet] 5-325 mg tablet 1 tab PO Q6H PRN (Reason: pain) 7 Days Qty: 14 0RF morphine [MS Contin] 15 mg tablet extended release 15 mg PO BID PRN PRN (Reason: pain) 5 Days Qty: 10 0RF cephalexin 500 mg capsule 500 mg PO TID 7 Days Qty: 21 0RF promethazine 25 mg tablet 25 mg PO TID PRN (Reason: nausea and vomiting) Qty: 21 0RF albuterol sulfate [Ventolin HFA] 90 mcg/actuation HFA aerosol inhaler 2 puff inhalation Q4H PRN PRN (Reason: Wheezing) Qty: 1 0RF prednisone 20 mg tablet 40 mg PO DAILY Qty: 10 0RF Stand Alone Forms: ED Work / School Excuse Primary Care Provider: Jin Castro Referrals: Jin Castro MD [Primary Care Provider] - Activity Restrictions/Additional Instructions: Please take the antibiotics until finished. Use the ibuprofen every 6-8 hours f or pain. He will start having relief from the antibiotics in 24 to 48 hours Disposition Disposition: Home, Self Care Discharge Date/Time: 12/24/23 17:23
--- OUTSIDE RECORDS SUMMARY | 2023-12-24 16:36 | XMS RPT_ITS | CCD ---
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 Cardiovascular: Rate and Rhythm: Normal rate and regular rhythm. Heart sounds: Normal heart sounds, S1 normal and S2 normal. Pulmonary: Effort: Tachypnea and accessory muscle usage present. Breath sounds: Examination of the right-lower field reveals decreased breath sounds. Examination of the left-lower field reveals decreased breath sounds. Decreased breath sounds present. Comments: Mild respiratory distress continues after nebulizer treatment. Lungs remained diminished after treatment. Neurological: Mental Status: She is alert and oriented to person, place, and time. Gait: Gait is intact. ASSESSMENT/PLAN: 1. SOB (shortness of breath) - ICD9: 786.05, ICD10: R06.02 (primary diagnosis) No improvement after nebulizer treatment Will refer to ER, declines squad, mother to drive pov to [facility] ER, report sent. - ALBUTEROL SULFATE 2.5 MG/3 ML (0.083 %) SOLUTION FOR NEBULIZATION 2. History of asthma - ICD9: V12.69, ICD10: Z87.09 - ALBUTEROL SULFATE 2.5 MG/3 ML (0.083 %) SOLUTION FOR NEBULIZATION 3. Subacute cough - ICD9: 786.2, ICD10: R05.2 Destin Morales APRN.MESSI [facility] 10-14-2023 Note HNO ID: [id number] Author: Hetal Gallegos MRI Tech Service: Radiology Author Type: Primary Education Professor Type: Progress Notes Filed: 10/14/2023 4:52 PM Note Text: Radiology Service Progress Note PATIENT NAME: Violetta Masters DATE OF SERVICE: October 14, 2023 TIME: 4:51 PM PATIENT IDENTITY VERIFICATION COMPLETED USING TWO (2) IDENTIFIERS: Name and Date of confirmed by patient verbally and Name and Date of confirmed by identification band. FALL SCREENING: Has the patient had 2 falls in the last year or 1 fall with injury or currently using an Ambulatory Assistive Device (Walker, Cane, Wheelchair, Crutches, etc.)? No PATIENT GENDER DATA: Female. status: : No status: NO. PATIENT RELEVANT IMPLANT DATA REVIEWED: Yes RADIOLOGY DEPARTMENT: MR; Exam(s) Completed: Head: concussion protocol PERIPHERAL IV DATA: Not applicable SIGNED BY: NILS Pozo October 14, 2023 4:51 PM [facility] 09-28-2023 Note HNO ID: [id number] Author: Anastasia Brantley APRN.MESSI Service: ? Author Type: Nurse Practitioner Type: Progress Notes Filed: 09/28/2023 8:54 AM Note Text: [facility] Neurologic [place] New Patient Evaluation CHIEF COMPLAINT: Concussion/hyperreflexia Violetta Masters is a 38 year old accompanied by self. Consult was requested by Dr. Lorenz for an opinion regarding hyperreflexia. My final impression and recommendations will be communicated back to the requesting physician by way of the shared medical record or fax. September 28, 2023 HPI: Ms. Masters is a L handed female who presents today secondary to issues of concussion. She states that in July she had an accident at work. Was hanging a sign while up on a ladder. 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 Had a concussion and multiple sprains and strains. Has been going to PT. Still having headaches and pain. Everything from the neck down has been fine; no weakness in extremities. When PT works on her neck she feels miserable. Unsure if she lost consciousness. Per ED note on 07/26/23: Clinical Impressions as of 07/26/23 1855 Post concussive syndrome 37-year-old female presenting for reevaluation after a visit 3 days ago. Work-related fall from a stepladder. Fell from the second step. Amnestic to some events. Unsure about loss of consciousness. Evaluated here initially and CT head and C-spine were negative. Had plain films that were negative as well. Repeat CT here again is negative. CTA of the head and neck were done because the patient had a slight drift in her right upper extremity in the setting of her continued symptoms. Those are negative as well. I suspect a postconcussive syndrome. Patient will be discharged to follow-up with primary care provider. Meclizine and Zofran for symptom control and return if needed for any worsening symptoms. Had MRI cervical spine and was sent to spine. Was told C5-6 were affected but per spine no further issues. Per spine sx on 09/23/23: ASSESSMENT/PLAN Violetta Masters is a 38-year-old female with signs and symptoms consistent with cervical myelopathy. -I had a long discussion today with the patient. She is having worsening balance and dexterity issues. She is having diffuse weakness in her arms. She is hyperreflexic. I reviewed the MRI of her cervical spine which does show a disc herniation at C5-6 with compression of the spinal cord, but the compression is not that severe. Recommend a neurology consult for further work-up to make sure this is not coming from a different source. She will see me after the neurology consult. Has had posterior head pain. Will radiate throughout her head into her neck and shoulders. Will typically start at 2-3/10 and then intensifies throughout the day. Headaches occurring daily. Might not last all day long. Initially from morning to night. + n/v if severe. + light/sound sensitivity. Getting up and moving can cause some vision changes; takes a few minutes to focus. No past hx of aura. No medications will help headaches. Has tried ibuprofen 800mg. Switched to Mobic but hasn't helped much. Tried muscle relaxant without relief. Headaches not better or worse in certain position. Sometimes headache without coughing or sneezing. No tinnitus or blurred vision. Does have dizziness described as a lightheaded feeling. Happened at work when she felt like she overdid it at work. Having tingling and numbness in hands and fingers intermittently. Can become worse with headaches. Can feel weakness on R with headache. [place] weak after biking at PT for four minutes. Hx of migraines; no past work up or medications. No past head injuries or neck injuries. No past neuro hx. No family neuro hx. Returned to week one week after her injury; 4-6 hour shifts. Did rest the following weeks after injury. Alcohol: Denies Tobacco: Denies Drug: Denies PAST MEDICAL HISTORY Diagnosis Date Depression, major, recurrent, moderate (HCC) 03/28/2019 fracture bilateral ankle GERD without esophagitis 03/28/2019 Headache(784.0) Hx of in prior , currently 04/25/2017 04/25/2017Her previous child was born at 27 w3 d and lived 13 days. The fetus was diagnosed with pleural effusion at 18 weeks at the anatomy ultrasound.TKRN Lupus (HCC) Moderate persistent asthma, uncomplicated 03/28/2019 Organic insomnia, unspecified depression Seasonal allergies 02/08/2020 Sjogren's disease (HCC) Well adult exam 03/28/2019 PAST SURGICAL HISTORY Procedure Laterality Date ARTHROSCOPY KNEE DIAGNOSTIC W/WO SYNOVIAL BX SPX Arthroscopy, knee, right with cartilage repair DELIVERY ONLY 10/18/2017 SECTION HX DILATION AND CURETTAGE DXAND/THER NONOBSTETRIC Dilation AND curettage EGD TRANSORAL BIOPSY SINGLE/MULTIPLE 04/02/11 TONSILLECTOMY PRIMARY/SECONDARY Tonsillectomy Current Outpatient Medications on (more content not included)... [facility] 09-23-2023 Note HNO ID: [id number] Author: Adalid Lorenz DO Service: ? Author Type: Physician Type: Progress Notes Filed: 09/23/2023 10:22 AM Note Text: Adalid Lorenz DO [facility] [place] [facility] - Orthopedic Spine Surgeon [address], [place] [address] [address] [place] [address] Phone: [phone] FAX: [phone] SPINE SURGERY OUTPATIENT CONSULT SERVICE DATE: 09/23/2023 Last Office Visit: 09/20/2023 REFERRING PROVIDER: SELF CHIEF COMPLAINT: Bilateral arm pain and neck pain HISTORY OF PRESENT ILLNESS Violetta Masters is a 38 year old female presenting alone. She has a past medical history of depression, GERD, headaches, lupus, asthma and Sjogren's disease. She presented to the Emergency Department on 07/23/2023 following a fall off a 3-foot step ladder. She denied LOC but complained of neck and right shoulder pain. Imaging was negative. She then presented back to the ER on 07/26/2023 for a reevaluation for post concussive syndrome. CTA head and neck were obtained as she had a slight drift in her right upper extremity, imaging was negative. She was discharged home with recommendations to follow-up with PCP. At her last visit on 09/20/2023 she reported continued neck pain with radiation to posterior head, to jaw, to occasionally bilateral posterior arms to elbows with paresthesia to arms and hands, right > left. She noted worsening dexterity issues and upper extremity weakness, denied imbalance issues. She stated her symptoms worsen with range of motion in her neck. She had been participating in physical therapy and trialed oral medications without symptom improvement. She presented to the office for image review, evaluation and plan of care. Stated that her symptoms been getting worse since the accident. It was noted her bilateral arm pain and symptoms were consistent with cervical myelopathy. She noted she recently underwent a MRI of the cervical spine at an outside hospital. It was recommended to obtain her disc and follow up once obtained, prompting her visit today. Today she states her symptoms have gone unchanged since her last visit. She denies any new or worsening weakness, falls, loss of bowel or bladder. She continues with cervical pain into the posterior head to the back and at times into the bilateral posterior arms to elbow with numbness and tingling. She continued with gait imbalance. Continues to have loss of dexterity in her hands. She presents for imaging review, evaluation and plan of care. Pain began July after a fall. SYMPTOMS: neck pain with radiation to posterior head, to jaw, to occasionally bilateral posterior arms to elbows with paresthesia to arms and hands, right > left PREVIOUS CONSERVATIVE TREATMENTS: Physical Therapy: [facility] 2-3 times a week since July- no relief. Asked patient to sign form to obtain office notes. 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 The fetus was diagnosed with pleural effusion at 18 weeks at the anatomy ultrasound.TKRN Lupus (HCC) Moderate persistent asthma, uncomplicated 03/28/2019 Organic insomnia, unspecified depression Seasonal allergies 02/08/2020 Sjogren's disease ([facility]) Well adult exam 03/28/2019 PAST SURGICAL HISTORY Procedure Laterality Date ARTHROSCOPY KNEE DIAGNOSTIC W/WO SYNOVIAL BX SPX Arthroscopy, knee, right with cartilage repair DELIVERY ONLY 10/18/2017 SECTION HX DILATION AND CURETTAGE DXAND/THER NONOBSTETRIC Dilation AND curettage EGD TRANSORAL BIOPSY SINGLE/MULTIPLE 04/02/11 TONSILLECTOMY PRIMARY/SECONDARY Tonsillectomy FAMILY HISTORY Problem Relation Age of Onset Seizures Mother Diabetes Mother Arthritis Mother Rheumatoid other (Liver Scerosis) Mother No Known Problems Paternal Grandmother Cancer Maternal Grandmother leuk Colon Cancer Maternal Grandfather Diabetes Maternal Grandfather Heart Attack Paternal Grandfather Social History Tobacco Use Smoking status: Never Smokeless tobacco: Never Substance Use Topics Alcohol use: No Drug use: No ALLERGIES Allergen Reactions Benzonatate Swelling MEDICATIONS: cyclobenzaprine (FLEXERIL) 10 mg tablet Take 10 mg by mouth daily at bedtime. meloxicam (MOBIC) 15 mg tablet ibuprofen (MOTRIN) 600 mg tablet take 1 tablet by mouth three times a day with food if needed Ethinyl Estradiol-Norelgestrom (XULANE) 150-35 mcg/24 hr patch Apply 1 Patch as directed one time a week for 2 (more content not included)... [facility] 09-23-2023 History of Present illness Narrative Images from the original note were not included. Adalid Lorenz DO [facility] - Orthopedic Spine Surgeon [address], [facility] [address] [address] [place] [address] Phone: [phone] ([phone] FAX: [phone] SPINE SURGERY OUTPATIENT CONSULT SERVICE DATE: 09/23/2023 Last Office Visit: 09/20/2023 REFERRING PROVIDER: MARCO ANTONIO CHIEF COMPLAINT: Bilateral arm pain and neck pain HISTORY OF PRESENT ILLNESS Violetta Masters is a 38 year old female presenting alone. She has a past medical history of depression, GERD, headaches, lupus, asthma and Sjogren's disease. She presented to the Emergency Department on 07/23/2023 following a fall off a 3-foot step ladder. She denied LOC but complained of neck and right shoulder pain. Imaging was negative. She then presented back to the ER on 07/26/2023 for a reevaluation for post concussive syndrome. CTA head and neck were obtained as she had a slight drift in her right upper extremity, imaging was negative. She was discharged home with recommendations to follow-up with PCP. At her last visit on 09/20/2023 she reported continued neck pain with radiation to posterior head, to jaw, to occasionally bilateral posterior arms to elbows with paresthesia to arms and hands, right > left. She noted worsening dexterity issues and upper extremity weakness, denied imbalance issues. She stated her symptoms worsen with range of motion in her neck. She had been participating in physical therapy and trialed oral medications without symptom improvement. She presented to the office for image review, evaluation and plan of care. Stated that her symptoms been getting worse since the accident. It was noted her bilateral arm pain and symptoms were consistent with cervical myelopathy. She noted she recently underwent a MRI of the cervical spine at an outside hospital. It was recommended to obtain her disc and follow up once obtained, prompting her visit today. Today she states her symptoms have gone unchanged since her last visit. She denies any new or worsening weakness, falls, loss of bowel or bladder. She continues with cervical pain into the posterior head to the back and at times into the bilateral posterior arms to elbow with numbness and tingling. She continued with gait imbalance. Continues to have loss of dexterity in her hands. She presents for imaging review, evaluation and plan of care. Pain began July after a fall. SYMPTOMS: neck pain with radiation to posterior head, to jaw, to occasionally bilateral posterior arms to elbows with paresthesia to arms and hands, right > left PREVIOUS CONSERVATIVE TREATMENTS: Physical Therapy: [facility] 2-3 times a week since July- no relief. Asked patient to sign form to obtain office notes. 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 The fetus was diagnosed with pleural effusion at 18 weeks at the anatomy ultrasound.TKRN Lupus ([facility]) Moderate persistent asthma, uncomplicated 03/28/2019 Organic insomnia, unspecified depression Seasonal allergies 02/08/2020 Sjogren's disease ([facility]) Well adult exam 03/28/2019 PAST SURGICAL HISTORY Procedure Laterality Date ARTHROSCOPY KNEE DIAGNOSTIC W/WO SYNOVIAL BX SPX Arthroscopy, knee, right with cartilage repair DELIVERY ONLY 10/18/2017 SECTION HX DILATION & CURETTAGE DX&/THER NONOBSTETRIC Dilation & curettage EGD TRANSORAL BIOPSY SINGLE/MULTIPLE 04/02/11 TONSILLECTOMY PRIMARY/SECONDARY <AGE 11 Tonsillectomy FAMILY HISTORY Problem Relation Age of Onset Seizures Mother Diabetes Mother Arthritis Mother Rheumatoid other (Liver Scerosis) Mother No Known Problems Paternal Grandmother Cancer Maternal Grandmother leuk Colon Cancer Maternal Grandfather Diabetes Maternal Grandfather Heart Attack Paternal Grandfather Social History Tobacco Use Smoking status: Never Smokeless tobacco: Never Substance Use Topics Alcohol use: No Drug use: No ALLERGIES Allergen Reactions Benzonatate Swelling MEDICATIONS: cyclobenzaprine (FLEXERIL) 10 mg tablet Take 10 mg by mouth daily at bedtime. meloxicam (MOBIC) 15 mg tablet ibuprofen (MOTRIN) 600 mg tablet take 1 tablet by mouth three times a day with food if needed Ethinyl Estradiol-Norelgestrom (XULANE) 150-35 mcg/24 hr patch Apply 1 Patch as directed one time a week for 28 days. meclizine (ANTIVERT) 25 mg tab Take 1 tablet by mouth three times daily. REVIEW OF SYSTEMS Review of Systems Constitutional: Negative for chills, fatigue and fever. HENT: Negative for congestion and sore throat. Eyes: Negative for discharge, itching and visual disturbance. Respiratory: Negative for cough and shortness of breath. Cardiovascular: Negative for chest pain and palpitations. Gastrointestinal: Negative for constipation, diarrhea, nausea and vomiting. Endocrine: Negative for cold intolerance and heat intolerance. Genitourinary: Negative for difficulty urinating, frequency and urgency. Musculoskeletal: Positive for neck pain and neck stiffness. Negative for back pain and gait problem. Skin: Negative for rash and wound. Allergic/Immunologic: Negative for environmental allergies and food allergies. Neurological: Positive for weakness and numbness. Negative for dizziness, light-headedness and headaches. Hematological: Does not bruise/bleed easily. Psychiatric/Behavioral: Negative for agitation. The patient is not nervous/anxious. OBJECTIVE: BP 141/90 (BP Site: Left Arm, BP Position: Sitting, BP Cuff Size: Extra Large Adult) Pulse 95 Ht 5' 3 (1.6 m) Wt 214 lb 4.6 oz (97.2 kg) LMP 09/12/2023 (Exact Date) SpO2 100% BMI 37.96 kg/m PHYSICAL EXAM GENERAL APPEARANCE: Well nourished, well developed, and no apparent distress. NEURO PSYCH: Patient oriented to person, place, and time. Mood pleasant. Benign affect. CARDIOVASCULAR: Palpable pulses. No edema noted. No varicosities. SKIN: Head, neck, trunk, and extremities dry, intact and without lesions. LYMPHATICS: No palpable nodes in cervical or axillae areas. Groin exam deferred MUSCULOSKELETAL PALPATION: SPINOUS PROCESS: No pain. PARASPINALS: No pain. MUSCLE TONE and BULK: Symmetrical in the upper & lower extremities. MOTOR: Upper Extremity Left Right Deltoids 5/5 5/5 Biceps 4/5 4/5 Triceps 4/5 4/5 Business Professor 4/5 4/5 Interossei 4/5 4/5 Lower Extremity Hip Flexors 5/5 5/5 Quadriceps 5/5 5/5 Dorsiflexion 5/5 5/5 EHL/EDC 5/5 5/5 Plantar Flexion 5/5 5/5 SENSORY: Sensation intact to light touch C5-T1, L1-S1 GAIT: Unable to perform tandem gait LONG TRACT SIGNS: No clonus. Positive Kaylynn's bilaterally REFLEXES: Hyperreflexic all 4 extremities DATA REVIEW MRI from August 2023: There is a disc herniation at C5-6 that does compress the spinal cord but does not cause severe stenosis. No change in signal within the spinal cord. ASSESSMENT/PLAN Violetta Masters is a 38-year-old female with signs and symptoms consistent with cervical myelopathy. -I had a long discussion today with the patient. She is having worsening balance and dexterity issues. She is having diffuse weakness in her arms. She is hyperreflexic. I reviewed the MRI of her cervical spine which does show a disc herniation at C5-6 with compression of the spinal cord, but the compression is not that severe. Recommend a neurology consult for further work-up to make sure this is not coming from a different source. She will see me after the neurology consult. The following portions of the patient's history were reviewed, confirmed, and updated as necessary: allergies, current medications, past family history, past medical history, past social history, past surgical history, problem list, HPI, and ROS obtained by others. Some elements may be copied from a previous office note and have been reviewed/updated where appropriate. All portions reflect current medical decision making from today. The clinical and radiographic findings as well as the risks, benefits and alternatives of treatment have been reviewed in detail with the patient. Advised to call the office if symptoms worsen or new symptoms develop. Patient expressed understanding and is in agreement with plan. Adalid Lorenz DO This note was partially generated using [employer] voice recognition system, and there may be some incorrect words, spellings, and punctuation that were not noted in checking the note before saving. documented in this encounter [facility] 09-22-2023 Note HNO ID: [id number] Author: Autumn Carrasquillo RDMS Service: ? Author Type: Plugman Type: Progress Notes Filed: 09/22/2023 11:14 AM Note Text: Radiology Service Progress Note PATIENT NAME: Violetta Masters DATE OF SERVICE: September 22, 2023 TIME: 11:14 AM PATIENT IDENTITY VERIFICATION COMPLETED USING TWO (2) IDENTIFIERS: Name and Date of confirmed by patient verbally. FALL SCREENING: Has the patient had 2 falls in the last year or 1 fall with injury or currently using an Ambulatory Assistive Device (Walker, Cane, Wheelchair, Crutches, etc.)? No PATIENT GENDER DATA: Female. status: : No status: NO. PATIENT RELEVANT IMPLANT DATA REVIEWED: Not Applicable RADIOLOGY DEPARTMENT: Ultrasound PERIPHERAL IV DATA: Not applicable SIGNED BY: Autumn Carrasquillo RDMS [facility] September 22, 2023 11:14 AM [facility] 09-22-2023 History of Present illness Narrative Radiology Service Progress Note PATIENT NAME: Violetta Masters DATE OF SERVICE: September 22, 2023 TIME: 11:14 AM PATIENT IDENTITY VERIFICATION COMPLETED USING TWO (2) IDENTIFIERS: Name and Date of confirmed by patient verbally. FALL SCREENING: Has the patient had 2 falls in the last year or 1 fall with injury or currently using an Ambulatory Assistive Device (Walker, Cane, Wheelchair, Crutches, etc.)? No PATIENT GENDER DATA: Female. status: : No status: NO. PATIENT RELEVANT IMPLANT DATA REVIEWED: Not Applicable RADIOLOGY DEPARTMENT: Ultrasound PERIPHERAL IV DATA: Not applicable SIGNED BY: Autumn Carrasquillo RDMS [facility] September 22, 2023 11:14 AM documented in this encounter [facility] 09-20-2023 Note HNO ID: [id number] Author: Adalid Lorenz DO Service: ? Author Type: Physician Type: Progress Notes Filed: 09/20/2023 2:38 PM Note Text: Adalid Lorenz DO [facility] General Orthopedics - Orthopedic Spine Surgeon [address] [facility] [address], Critical [facility] [id number] [place] [id number] Phone: [phone] ([phone]) FAX: [phone] SPINE SURGERY OUTPATIENT CONSULT SERVICE DATE: 09/20/2023 Last Office Visit: Visit date not found REFERRING PROVIDER: Breezy Trejo [address] [place] [id number] CHIEF COMPLAINT: Bilateral arm pain neck pain. HISTORY OF PRESENT ILLNESS Violetta Masters is a 38 year old female presenting alone. She has a past medical history of depression, GERD, headaches, lupus, asthma and Sjogren's disease. Patient presents to the office today as a new patient with CT and radiographic imaging for evaluation of cervical spine. She presented to the Emergency Department on 07/23/2023 following a fall off a 3-foot step ladder. She denied LOC but complained of neck and right shoulder pain. Imaging was negative. She then presented back to the ER on 07/26/2023 for a reevaluation for post concussive syndrome. CTA head and neck were obtained as she had a slight drift in her right upper extremity, imaging was negative. She was discharged home with recommendations to follow-up with PCP. Today she reports continued neck pain with radiation to posterior head, to jaw, to occasionally bilateral posterior arms to elbows with paresthesia to arms and hands, right > left. She notes worsening dexterity issues and upper extremity weakness, denies imbalance issues. She states her symptoms worsen with range of motion in her neck. She has been participating in physical therapy and trialed oral medications without symptom improvement. She presents to the office for image review, evaluation and plan of care. States that her symptoms been getting worse since the accident. Pain began in July after a fall. SYMPTOMS: neck pain with radiation to posterior head, to jaw, to occasionally bilateral posterior arms to elbows with paresthesia to arms and hands, right > left PREVIOUS CONSERVATIVE TREATMENTS: Physical Therapy: [facility] 2-3 times a week since July- no relief. Asked patient to sign form to obtain office notes. 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 The fetus was diagnosed with pleural effusion at 18 weeks at the anatomy ultrasound.TKRN Lupus (HCC) Moderate persistent asthma, uncomplicated 03/28/2019 Organic insomnia, unspecified depression Seasonal allergies 02/08/2020 Sjogren's disease (HCC) Well adult exam 03/28/2019 PAST SURGICAL HISTORY Procedure Laterality Date ARTHROSCOPY KNEE DIAGNOSTIC W/WO SYNOVIAL BX SPX Arthroscopy, knee, right with cartilage repair DELIVERY ONLY 10/18/2017 SECTION HX DILATION AND CURETTAGE DXAND/THER NONOBSTETRIC Dilation AND curettage EGD TRANSORAL BIOPSY SINGLE/MULTIPLE 04/02/11 TONSILLECTOMY PRIMARY/SECONDARY Tonsillectomy FAMILY HISTORY Problem Relation Age of Onset Seizures Mother Diabetes Mother Arthritis Mother Rheumatoid other (Liver Scerosis) Mother No Known Problems Paternal Grandmother Cancer Maternal Grandmother leuk Colon Cancer Maternal Grandfather Diabetes Maternal Grandfather Heart Attack Paternal Grandfather Social History Tobacco Use Smoking status: Never Smokeless tobacco: Never Substance Use Topics Alcohol use: No Drug use: No ALLERGIES Allergen Reactions Benzonatate Swelling MEDICATIONS: cyclobenzaprine (FLEXERIL) 10 mg tablet Take 10 mg by mouth daily at bedtime. meloxicam (MOBIC) 15 mg tablet ibuprofen (MOTRIN) 600 mg tablet take 1 tablet by mouth three times a day with food if needed Ethinyl Estradiol-Norelgestrom (XULANE) 150-35 mcg/24 hr patch Apply 1 Patch as directed one time a week for 28 days. meclizine (ANTIVERT) 25 mg tab Take 1 tablet by mouth three times daily. REVIEW OF SYSTEMS Review of Systems Constitutional: Negative for chills, fatigue, fever and unexpected weight change. HENT: Negative for trouble swallowing and voice change. Eyes: Negative for visual disturbance. Respiratory: Negative for shortness of breath, wheezing and stridor. Cardiovascular: Negative for chest pain, palpitations and leg swelling. Gastrointestinal: Negative for diarrhea, nausea and vomiting. Endocrine: Negative for cold intolerance and heat intolerance. Alice (more content not included)... [facility] 09-20-2023 History of Present illness Narrative Images from the original note were not included. Adalid Lorenz, [facility] - Orthopedic Spine Surgeon [facility] [address] [place] [facility], [facility] [address] [address] [place] [address] Phone: [phone] ([phone] FAX: [phone] SPINE SURGERY OUTPATIENT CONSULT SERVICE DATE: 09/20/2023 Last Office Visit: Visit date not found REFERRING PROVIDER: Breezy Trejo [address] [place] [id number] CHIEF COMPLAINT: Bilateral arm pain neck pain. HISTORY OF PRESENT ILLNESS Violetta Masters is a 38 year old female presenting alone. She has a past medical history of depression, GERD, headaches, lupus, asthma and Sjogren's disease. Patient presents to the office today as a new patient with CT and radiographic imaging for evaluation of cervical spine. She presented to the Emergency Department on 07/23/2023 following a fall off a 3-foot step ladder. She denied LOC but complained of neck and right shoulder pain. Imaging was negative. She then presented back to the ER on 07/26/2023 for a reevaluation for post concussive syndrome. CTA head and neck were obtained as she had a slight drift in her right upper extremity, imaging was negative. She was discharged home with recommendations to follow-up with PCP. Today she reports continued neck pain with radiation to posterior head, to jaw, to occasionally bilateral posterior arms to elbows with paresthesia to arms and hands, right > left. She notes worsening dexterity issues and upper extremity weakness, denies imbalance issues. She states her symptoms worsen with range of motion in her neck. She has been participating in physical therapy and trialed oral medications without symptom improvement. She presents to the office for image review, evaluation and plan of care. States that her symptoms been getting worse since the accident. Pain began in July after a fall. SYMPTOMS: neck pain with radiation to posterior head, to jaw, to occasionally bilateral posterior arms to elbows with paresthesia to arms and hands, right > left PREVIOUS CONSERVATIVE TREATMENTS: Physical Therapy: [facility] 2-3 times a week since July- no relief. Asked patient to sign form to obtain office notes. 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 The fetus was diagnosed with pleural effusion at 18 weeks at the anatomy ultrasound.TKRN Lupus (HCC) Moderate persistent asthma, uncomplicated 03/28/2019 Organic insomnia, unspecified depression Seasonal allergies 02/08/2020 Sjogren's disease (HCC) Well adult exam 03/28/2019 PAST SURGICAL HISTORY Procedure Laterality Date ARTHROSCOPY KNEE DIAGNOSTIC W/WO SYNOVIAL BX SPX Arthroscopy, knee, right with cartilage repair DELIVERY ONLY 10/18/2017 SECTION HX DILATION & CURETTAGE DX&/THER NONOBSTETRIC Dilation & curettage EGD TRANSORAL BIOPSY SINGLE/MULTIPLE 04/02/11 TONSILLECTOMY PRIMARY/SECONDARY <AGE 12 Tonsillectomy FAMILY HISTORY Problem Relation Age of Onset Seizures Mother Diabetes Mother Arthritis Mother Rheumatoid other (Liver Scerosis) Mother No Known Problems Paternal Grandmother Cancer Maternal Grandmother leuk Colon Cancer Maternal Grandfather Diabetes Maternal Grandfather Heart Attack Paternal Grandfather Social History Tobacco Use Smoking status: Never Smokeless tobacco: Never Substance Use Topics Alcohol use: No Drug use: No ALLERGIES Allergen Reactions Benzonatate Swelling MEDICATIONS: cyclobenzaprine (FLEXERIL) 10 mg tablet Take 10 mg by mouth daily at bedtime. meloxicam (MOBIC) 15 mg tablet ibuprofen (MOTRIN) 600 mg tablet take 1 tablet by mouth three times a day with food if needed Ethinyl Estradiol-Norelgestrom (XULANE) 150-35 mcg/24 hr patch Apply 1 Patch as directed one time a week for 28 days. meclizine (ANTIVERT) 25 mg tab Take 1 tablet by mouth three times daily. REVIEW OF SYSTEMS Review of Systems Constitutional: Negative for chills, fatigue, fever and unexpected weight change. HENT: Negative for trouble swallowing and voice change. Eyes: Negative for visual disturbance. Respiratory: Negative for shortness of breath, wheezing and stridor. Cardiovascular: Negative for chest pain, palpitations and leg swelling. Gastrointestinal: Negative for diarrhea, nausea and vomiting. Endocrine: Negative for cold intolerance and heat intolerance. Genitourinary: Negative for difficulty urinating, dysuria and urgency. Musculoskeletal: Positive for gait problem, neck pain and neck stiffness. Negative for back pain. Skin: Negative for color change and pallor. Allergic/Immunologic: Negative for immunocompromised state. Neurological: Positive for weakness and numbness. Negative for speech difficulty and headaches. Hematological: Does not bruise/bleed easily. Psychiatric/Behavioral: Negative for agitation, behavioral problems and confusion. OBJECTIVE: BP 131/86 Pulse 89 Resp 16 Ht 5' 3 (1.6 m) Wt 212 lb 4.9 oz (96.3 kg) LMP 09/12/2023 (Exact Date) SpO2 98% BMI 37.61 kg/m PHYSICAL EXAM GENERAL APPEARANCE: Well nourished, well developed, and no apparent distress. NEURO PSYCH: Patient oriented to person, place, and time. Mood pleasant. Benign affect. CARDIOVASCULAR: Palpable pulses. No edema noted. No varicosities. SKIN: Head, neck, trunk, and extremities dry, intact and without lesions. LYMPHATICS: No palpable nodes in cervical or axillae areas. Groin exam deferred MUSCULOSKELETAL PALPATION: SPINOUS PROCESS: No pain. PARASPINALS: No pain. MUSCLE TONE and BULK: Symmetrical in the upper & lower extremities. MOTOR: Upper Extremity Left Right Deltoids 5/5 5/5 Biceps 4/5 4/5 Triceps 4/5 4/5 Business Professor 4/5 4/5 Interossei 4/5 4/5 Lower Extremity Hip Flexors 5/5 5/5 Quadriceps 5/5 5/5 Dorsiflexion 5/5 5/5 EHL/EDC 5/5 5/5 Plantar Flexion 5/5 5/5 SENSORY: Sensation intact to light touch C5-T1, L1-S1 GAIT: Able to perform tandem gait LONG TRACT SIGNS: No clonus. Positive Kaylynn's bilaterally REFLEXES: Hyperreflexic all [address] of cervical spine from 07/23/2023: IMPRESSION: No CT evidence of acute traumatic injury to the cervical spine C5-6 level, moderate degree of degenerative central canal stenosis secondary to posterior disc osteophyte complex axial image 53.Degenerative reversal normal cervical curvature C5-6 level XR of cervical spine from 09/20/2023: AP lateral flexion-extension views cervical spine displays no signs of instability. ASSESSMENT/PLAN Violetta Masters 38-year-old female bilateral arm pain and signs and symptoms consistent with cervical myelopathy. -I had a long discussion today with the patient. I reviewed her imaging. Patient states that she recently had an MRI of her cervical spine. This was done at an outside hospital. I discussed with the patient that she should get the MRI disc and come back and see me. She will follow-up me when she has the MRI disc. The following portions of the patient's history were reviewed, confirmed, and updated as necessary: allergies, current medications, past family history, past medical history, past social history, past surgical history, problem list, HPI, and ROS obtained by others. Some elements may be copied from a previous office note and have been reviewed/updated where appropriate. All portions reflect current medical decision making from today. The clinical and radiographic findings as well as the risks, benefits and alternatives of treatment have been reviewed in detail with the patient. Advised to call the office if symptoms worsen or new symptoms develop. Patient expressed understanding and is in agreement with plan. Adalid Lorenz DO This note was partially generated using [employer] voice recognition system, and there may be some incorrect words, spellings, and punctuation that were not noted in checking the note before saving. documented in this encounter [facility] 09-14-2023 Note HNO ID: [id number] Author: Mike Christianson MD Service: ? Author Type: Physician Type: Progress Notes Filed: 09/14/2023 8:54 AM Note Text: Violetta Masters is a 38 year old female who presents for AUB, hot flashes and ARAUZ since March, . Pt also reports increased increased thirst and urinary output. Pt reports is bleeding every 7-10 days - will have a normal cycle then bleeds one week after heavy- for a full 7 days. Last normal period was in February, previously very consistent cycles. States that she has decreased time (approx 1 week) b/w cycles of heavy bleeding. Pt states had accident at work- had neck injury/concussion- so hard to tell what is what right now with headaches. Pt reports has some vision changes but thinks it is more from contacts. 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 The fetus was diagnosed with pleural effusion at 18 weeks at the anatomy ultrasound.TKRN Lupus (HCC) Moderate persistent asthma, uncomplicated 03/28/2019 Organic insomnia, unspecified depression Seasonal allergies 02/08/2020 Sjogren's disease (HCC) Well adult exam 03/28/2019 PAST SURGICAL HISTORY Procedure Laterality Date ARTHROSCOPY KNEE DIAGNOSTIC W/WO SYNOVIAL BX SPX Arthroscopy, knee, right with cartilage repair DELIVERY ONLY 10/18/2017 SECTION HX DILATION AND CURETTAGE DXAND/THER NONOBSTETRIC Dilation AND curettage EGD TRANSORAL BIOPSY SINGLE/MULTIPLE 04/02/11 TONSILLECTOMY PRIMARY/SECONDARY Tonsillectomy FAMILY HISTORY Problem Relation Age of Onset Seizures Mother Diabetes Mother Arthritis Mother Rheumatoid other (Liver Scerosis) Mother No Known Problems Paternal Grandmother Cancer Maternal Grandmother leuk Colon Cancer Maternal Grandfather Diabetes Maternal Grandfather Heart Attack Paternal Grandfather Social History Tobacco Use Smoking status: Never Smokeless tobacco: Never Substance Use Topics Alcohol use: No Drug use: No Current Outpatient Medications Medication Sig meclizine (ANTIVERT) 25 mg tab Take 1 tablet by mouth three times daily. citalopram (CELEXA) 20 mg tablet Take 1 tablet by mouth once daily. albuterol HFA (VENTOLIN HFA) 90 mcg/actuation inhaler Inhale 2 Puffs as instructed every 4 hours as needed. fluticasone-vilanterol (BREO ELLIPTA) 100-25 mcg/dose inhaler Inhale 1 Inhalation as instructed once daily. lidocaine viscous (LIDOCAINE VISCOUS) 2 % solution Take 5 mL by mouth as needed for pain (q4hr, gargle and spit out). (Patient not taking: Reported on 07/08/2022) XULANE 150-35 mcg/24 hr APPLY 1 PATCH DIRECTED ONE TIME A WEEK (Patient not taking: Reported on 07/08/2022) predniSONE (DELTASONE) 20 mg tablet 3 tabs a day by mouth for the next 5 days (Patient not taking: Reported on 07/08/2022) fluticasone (FLONASE) 50 mcg/actuation nasal spray Use 2 Sprays in each nostril once daily. Rinse mouth after use. (Patient not taking: Reported on 07/08/2022) No current facility-administered medications for this visit. Allergies As of Date: 09/14/2023 Allergen Noted Reaction BENZONATATE 04/12/2017 Swelling Fully Assessed 09/14/2023 REVIEW OF SYSTEMS Abdomen: + Early satiety, bloating Bladder: + urinary frequency . Breast: No breast lumps, nipple d/c, overlying skin changes, redness or skin retraction. Expanded ROS: Endocrine: + weight gain, Polydipsia, polyuria, heat intolerance, dry skin Allergies and current medication updated:Yes EXAM: BP 146/76 Wt 210 lb (95.3kg) LMP 09/12/2023 GENERAL: pleasant, female in no apparent distress HEENT: Normocephalic and atraumatic NECK: full range of motion DERMATOLOGY: Normal, without lesions, non-icteric, and non-hirsute NEURO: alert and oriented x3,exam grossly non-focal EXTREMITIES: normal ASSESSMENT AND PLAN: Encounter Diagnosis ICD-10-CM 1. Abnormal uterine bleeding (AUB) N93.9 PROLACTIN BLD TESTOSTERONE, FREE AND TOTAL US FEMALE PELVIS TRANSVAG 2. Polyuria R35.89 HGB A1C 3. Polydipsia R63.1 4. Screening for diabetes mellitus Z13.1 HGB A1C 5. Hot flashes R23.2 TSH BLD FSH BLD ESTRADIOL-17B BLD 6. Follow up for annual exam as scheduled in November. Medical Decision Making: Problems: Moderate: New problem with uncertain prognosis Data: Unique test(s) ordered: 3+ Risk: Moderate: Moderate risk from testing/treatment Medical Decision Jacy (more content not included)... [facility] 08-27-2023 Note HNO ID: [id number] Author: Note, Interface Service: ? Author Type: ? Type: Progress Notes Filed: 08/27/2023 5:14 AM Note Text: Epic Scheduled Downtime: 08/27/2023 1:00:00 AM to 08/27/2023 1:28:00 AM [facility] 07-08-2022 History of Present illness Narrative Subjective Sore Throat Associated symptoms include congestion, coughing, diarrhea, ear pain, headaches and vomiting. Violetta Masters is a 36 year old female who presents with one month of the following symptoms: Cough, sore throat, ear pain, chills, nausea, headache, diarrhea. Symptoms have at times improved for a couple days but then recur. She did a virtual visit on 06/09 after having symptoms for 4 days and was expecting she would be prescribed an antibiotic. She was told her symptoms were likely viral, and if symptoms persist for 10 days she should be seen in person. She did not do this. She was offered a COVID test at the virtual visit and she also declined this. She states she took a home COVID test and it was negative. Patient states she has taken everything to help with her symptoms. When asked for more detail she states ibuprofen . Patient voices frustration that she has been sick for so long and wants some type of treatment so she can feel better. Review of Systems Constitutional: Positive for chills. Negative for fever and malaise/fatigue. HENT: Positive for congestion, ear pain and sore throat. Respiratory: Positive for cough. Gastrointestinal: Positive for diarrhea, nausea and vomiting. Neurological: Positive for headaches. BP 112/82 Pulse 111 Temp 37.3 C (99.2 F) Resp 21 Wt 93.4 kg (206 lb) LMP 08/10/2019 (Exact Date) SpO2 98% BMI 37.43 kg/m PAST MEDICAL HISTORY Diagnosis Date Depression, major, recurrent, moderate (HCC) 03/28/2019 fracture bilateral ankle GERD without esophagitis 03/28/2019 Headache(784.0) Hx of in prior , currently 04/25/2017 04/25/2017Her previous child was born at 27 w3 d and lived 13 days. The fetus was diagnosed with pleural effusion at 18 weeks at the anatomy ultrasound.TKRN Lupus ([facility]) Moderate persistent asthma, uncomplicated 03/28/2019 Organic insomnia, unspecified depression Seasonal allergies 02/08/2020 Sjogren's disease ([facility]) Well adult exam 03/28/2019 PAST SURGICAL HISTORY Procedure Laterality Date ARTHROSCOPY KNEE DIAGNOSTIC W/WO SYNOVIAL BX SPX Arthroscopy, knee, right with cartilage repair DELIVERY ONLY 10/18/2017 SECTION HX DILATION & CURETTAGE DX&/THER NONOBSTETRIC Dilation & curettage EGD TRANSORAL BIOPSY SINGLE/MULTIPLE 04/02/11 TONSILLECTOMY PRIMARY/SECONDARY <AGE 12 Tonsillectomy ALLERGIES Benzonatate MEDICATIONS citalopram (CELEXA) 20 mg tablet Take 1 tablet by mouth once daily. albuterol HFA (VENTOLIN HFA) 90 mcg/actuation inhaler Inhale 2 Puffs as instructed every 4 hours as needed. amoxicillin-clavulanic acid (AUGMENTIN) 875-125 mg per tablet Take 1 tablet by mouth twice daily for 7 days. fluticasone-vilanterol (BREO ELLIPTA) 100-25 mcg/dose inhaler Inhale 1 Inhalation as instructed once daily. lidocaine viscous (LIDOCAINE VISCOUS) 2 % solution Take 5 mL by mouth as needed for pain (q4hr, gargle and spit out). (Patient not taking: Reported on 07/08/2022) XULANE 150-35 mcg/24 hr APPLY 1 PATCH DIRECTED ONE TIME A WEEK (Patient not taking: Reported on 07/08/2022) predniSONE (DELTASONE) 20 mg tablet 3 tabs a day by mouth for the next 5 days (Patient not taking: Reported on 07/08/2022) fluticasone (FLONASE) 50 mcg/actuation nasal spray Use 2 Sprays in each nostril once daily. Rinse mouth after use. (Patient not taking: Reported on 07/08/2022) FAMILY HISTORY Problem Relation Age of Onset Seizures Mother Diabetes Mother Arthritis Mother Rheumatoid other (Liver Scerosis) Mother No Known Problems Paternal Grandmother Cancer Maternal Grandmother leuk Colon Cancer Maternal Grandfather Diabetes Maternal Grandfather Heart Attack Paternal Grandfather Social History Tobacco Use Smoking status: Never Smokeless tobacco: Never Substance Use Topics Alcohol use: No Drug use: No Objective Physical Exam Vitals and nursing note reviewed. Constitutional: Appearance: She is obese. HENT: Right Ear: Tympanic membrane, ear canal and external ear normal. Left Ear: Tympanic membrane, ear canal and external ear normal. Nose: Mucosal edema and congestion present. Right Turbinates: Swollen. Left Turbinates: Swollen. Mouth/Throat: Pharynx: Uvula midline. No oropharyngeal exudate or posterior oropharyngeal erythema. Cardiovascular: Rate and Rhythm: Normal rate and regular rhythm. Heart sounds: Normal heart sounds. Pulmonary: Effort: Pulmonary effort is normal. No respiratory distress. Breath sounds: Normal breath sounds. No wheezing or rales. Musculoskeletal: Cervical back: Neck supple. Lymphadenopathy: Cervical: No cervical adenopathy. Skin: General: Skin is warm and dry. Findings: No erythema or rash. Neurological: Mental Status: She is alert. ASSESSMENT/PLAN: 1. Acute sinusitis, recurrence not specified, unspecified location - ICD9: 461.9, ICD10: J01.90 - Will begin treatment with Augmentin 875 mg PO BID for 7 days - The patient should also be given flonase nasal spray and mucinex for the first 5-7 days of treatment. - Supportive care with plenty of fluids, rest, and analgesia prn. - AMOXICILLIN 875 MG-POTASSIUM CLAVULANATE 125 MG TABLET - Follow-up with your PCP in 3-5 days if symptoms have not improved or sooner if symptoms worsen - Discussed red flags and need for immediate medical evaluation if any occur. - Discussed supportive care treatment with fluids, rest and analgesia. - Discussed expected course of illness Twila Salazar APRN.CNP documented in this encounter [facility] 07-08-2022 Instructions Twila Salazar APRN.CNP - 07/08/2022 4:40 PM EDT ASSESSMENT/PLAN: 1. Acute sinusitis, recurrence not specified, unspecified location - ICD9: 461.9, ICD10: J01.90 - Will begin treatment with Augmentin 875 mg PO BID for 7 days - The patient should also be given flonase nasal spray and mucinex for the first 5-7 days of treatment. - Supportive care with plenty of fluids, rest, and analgesia prn. - AMOXICILLIN 875 MG-POTASSIUM CLAVULANATE 125 MG TABLET - Follow-up with your PCP in 3-5 days if symptoms have not improved or sooner if symptoms worsen - Discussed red flags and need for immediate medical evaluation if any occur. - Discussed supportive care treatment with fluids, rest and analgesia. - Discussed expected course of illness Twila Salazar APRN.CNP [facility] PATIENT INFO ACUTE SINUSITIS OVERVIEW Rhinosinusitis, or more commonly sinusitis, is the medical term for inflammation (swelling) of the lining of the sinuses and nose. The sinuses are the hollow areas within the facial bones that are connected to the nasal openings. The sinuses are lined with mucous membranes, similar to the inside of the nose. There are two main types of sinusitis: acute and chronic. Acute sinusitis is inflammation that lasts for less than four weeks while chronic sinusitis lasts for more than 12 weeks. Acute sinusitis is common, affecting approximately one million people per year in the [place]. ACUTE SINUSITIS CAUSES The most common cause of acute sinusitis is a viral infection associated with the common cold. Bacterial sinusitis occurs much less commonly, in only 0.5 to 2 percent of cases, usually as a complication of viral sinusitis. Because antibiotics are effective only against bacterial, and not viral, infections, most people do not need antibiotics for acute sinusitis. ACUTE SINUSITIS SYMPTOMS Symptoms of acute sinusitis include: Nasal congestion or blockage Thick, yellow to green discharge from the nose Pain in the teeth Pain or pressure in the face that is worse when bending forwards Other acute sinusitis symptoms can include fever (temperature greater than 100.4 F or 38 C), fatigue, cough, difficulty or inability to smell, ear pressure or fullness, headache, and bad breath. In most cases, these symptoms develop over the course of one day and begin to improve within seven to 10 days. DO I NEED TO BE EXAMINED? It is difficult to know if you have a viral or bacterial sinus infection initially. However, most people with a viral infection improve without treatment within seven to 10 days after symptoms begin. Bacterial sinusitis also sometimes improves without treatment, although it can also worsen and require treatment. If one or more of the following bothersome symptoms last more than seven days, an examination by a healthcare provider is recommended: Thick, yellow to green discharge from the nose Face or tooth pain, especially if it is only on one side Tenderness over the maxillary sinuses (located on the left and right side of the nose, inside the cheekbones) Symptoms that initially improve and then worsen When to seek immediate help -- If you have one or more of the following symptoms, you should seek medical attention immediately (even if symptoms have been present for less than seven days): High fever (>102.5 F or 39.2 C) Sudden, severe pain in the face or head Double vision or difficulty seeing Confusion or difficulty thinking clearly Swelling or redness around one or both eyes Stiff neck, shortness of breath ACUTE SINUSITIS TREATMENT Initial treatment of a sinus infection aims to relieve symptoms since almost everyone will improve within the first seven to 10 days. Experts recommend avoiding antibiotics during this time unless there is clear evidence of a severe bacterial infection. Initial treatment Pain relief -- Non-prescription pain medications, such as acetaminophen (eg, Tylenol ) or ibuprofen (eg, Motrin , Advil ) are recommended for pain. Nasal irrigation and saline sprays -- Rinsing the nose with a salt-water (saline) solution is called nasal irrigation or nasal lavage. Saline is also available in a standard nasal spray, although this is not as effective as using larger amounts of water in an irrigation. Nasal irrigation is particularly useful for treating drainage down the back of the throat, sneezing, nasal dryness, and congestion. The treatment helps by rinsing out allergens and irritants from the nose. Saline rinses also clean the nasal lining and can be used before applying sprays containing medications, to get a better effect from the medication. Nasal lavage with warmed saline can be performed as needed, once per day, or twice daily for increased symptoms. Nasal lavage carries few risks when performed correctly. Saline nasal sprays and irrigation kits can be purchased [id number]. Saline mixes can also be purchased or patients can make their own solution. A variety of devices, including bulb syringes, Neti pots, and bottle sprayers, may be used to perform nasal lavage; instructions for nasal lavage are provided in the table. At least 200 mL (about 3/4 cup) of fluid is recommended for each nostril. Nasal decongestants -- Nasal decongestant sprays, including oxymetazoline (Afrin ) and phenylephrine (Jeremias-synephrine ) can be used to temporarily treat congestion. However, these sprays should not be used for more than two to three days due to the risk of rebound congestion (when the nose is congested constantly unless the medication is used repeatedly). Other treatments -- Other treatments for congestion, such as oral antihistamines (such as diphenhydramine/Benadryl ) or zinc supplements are not proven to improve symptoms of sinusitis and can have unwanted side effects. Medications to thin secretions (such as guaifenesin) may help to clear mucus. Secondline treatment -- If symptoms have not improved in seven to ten days, you should arrange for medical evaluation. You may need further treatment. Nasal glucocorticoids -- Nasal glucocorticoids (steroids delivered by a nasal spray) can help to reduce swelling inside the nose, usually within two to three days. These drugs have few side effects and dramatically relieve symptoms in most people. There are a number of nasal glucocorticoids available by prescription. These drugs are all effective, but differ in how frequently they must be used and how much they cost. You may need to use a nasal decongestant for a few days before starting a nasal glucocorticoid to reduce nasal swelling; this will allow the nasal glucocorticoid to reach more areas of the nasal passages Do I need an antibiotic? -- If bothersome symptoms of sinusitis persist for 10 or more days, it is possible that you have bacterial sinusitis. The need for antibiotics depends upon the severity of your symptoms. Mild symptoms -- There are two possible treatment options if you have mild sinusitis symptoms: treat with antibiotics or continue to watch and wait for one week. Watching and waiting is a reasonable option because up to 75 percent of people with bacterial sinusitis improve within one month without antibiotics. During the watch and wait period, treatments to improve symptoms are recommended. If symptoms worsen or do not improve after watching and waiting, treatment with an antibiotic is usually recommended. Treatments to relieve symptoms are recommended while using antibiotics. Moderate or severe symptoms -- Most healthcare providers will prescribe an antibiotic for moderate to severe symptoms (temperature >38.3 C or 101 F and/or severe pain that interferes with usual activities). Treatments to relieve symptoms are also recommended during antibiotic treatment. One of the least expensive and most effective antibiotics for sinusitis is amoxicillin. An alternate antibiotic will be prescribed if you are allergic to penicillin. Regardless of which antibiotic is prescribed, it is important to follow the dosing instructions carefully and to finish the entire course of treatment. Taking the medication less often than prescribed or stopping the medication early can lead to complications, such as a recurrent infection. What if I do not improve with treatment? -- If you do not improve or worsen after a course of antibiotics, you should be re-examined. In some cases, symptoms of sinusitis improve but then recur. This is usually because the infection was not completely eliminated by the antibiotic. An alternate antibiotic, extended antibiotic treatment, and/or further testing may be recommended, depending upon your individual situation. documented in this encounter [facility] 06-09-2022 Instructions Carlos Eduardo Campbell PA-C - 06/09/2022 12:27 PM EDT Resources for Managing Anxiety During COVID Crisis https://www.virus[place]ost[place].Recovr https://www.cdc.gov/coronavirus/2 019-ncov/prepare/managing-stress- anxiety.html https://coronavirus.[place].gov/wps/ portal/gov/covid-19/home/resource s/vpzahoutz-vac-wgvhys-coping-wit e-ylo-zndql-19-pandemic www.[employer]/us/blog/odette castrobg-kosxw-frdgpwrzsvuz//how- iwkhxt-nvvllrtoocd-vmdkghg https://www.[employer] s/blog/cha-qxlvf-cjysyky//1 1-cpva-edtxpqgyy-calm-positivity- now https://www.[employer]/u s/blog/experimentations//7- vyparfcmwcp-dcjndaydmnq-hgcpgfugv g-adversity Beginning Home Isolation Isolation is used to separate people infected with SARS-CoV-2, the virus that causes COVID-19, from people who are not infected. People who are in isolation should stay home until it s safe for them to be around others. In the home, anyone sick or infected should separate themselves from others by staying in a specific sick room or area and using a separate bathroom (if available). Isolation or Quarantine: What's the difference? Quarantine keeps someone who might have been exposed to the virus away from others. Isolation keeps someone who is infected with the virus away from others, even in their home. Who needs to isolate People who have COVID-19 People who have symptoms of COVID-19 and are able to recover at home People who have no symptoms (are asymptomatic) but have tested positive for infection with SARS-CoV-2 Steps to take Stay home except to get medical care Monitor your symptoms. Stay in a separate room from other household members, if possible Use a separate bathroom, if possible Avoid contact with other members of the household and pets Don t share personal household items, like cups, towels, and utensils Wear a mask when around other people, if you are able to When to seek emergency medical attention Look for emergency warning signs* for COVID-19. If someone is showing any of these signs, seek emergency medical care immediately: Trouble breathing Persistent pain or pressure in the chest New confusion Inability to wake or stay awake Bluish lips or face *This list is not all possible symptoms. Please call your medical provider for any other symptoms that are severe or concerning to you. Call 911 or call ahead to your local emergency facility: Notify the bias cutting machine operator that you are seeking care for someone who has or may have COVID-19. Ending Home Isolation - When you can be around others after you had or likely had COVID-19 When you can be around others after you had or likely had COVID-19 If You Test Positive for COVID-19 (Isolation) Everyone, regardless of vaccination status: 1. Stay home for 5 days. Note: Day 0 is your first day of symptoms or the date of collection of a positive viral test if no symptoms. Day 1 is the first full day after symptoms developed or test specimen was collected. 2. If you have no symptoms or your symptoms are resolving after 5 days, you can leave your house. 3. Continue to wear a mask around others for 5 additional days. If you have a fever, continue to stay home until your fever resolves, even if it is longer than 5 days. If You Were Exposed to Someone with COVID-19 (Quarantine) If you: 1. Have been boosted OR 2. Completed the primary series of Pfizer or Moderna vaccine within the last 6 months OR 3. Completed the primary series of J&J vaccine within the last 2 months THEN: 1. Wear a mask around others for 10 days. 2. Test on day 5, if possible. If you develop symptoms get a test and stay home. If You Were Exposed to Someone with COVID-19 (Quarantine) If you: 1. Completed the primary series of Pfizer or Moderna vaccine over 6 months ago and are not boosted OR 2. Completed the primary series of J&J over 2 months ago and are not boosted OR 3. Are unvaccinated THEN: 1. Stay home for 5 days. After that continue to wear a mask around others for 5 additional days. 2. If you can't quarantine you must wear a mask for 10 days. 3. Test on day 5 if possible. If you develop symptoms get a test and stay home. I had COVID-19 or I tested positive for COVID-19 and I have a weakened immune system If you have a weakened immune system (immunocompromised) due to a health condition or medication, you might need to stay home and isolate longer than 10 days. Talk to your healthcare provider for more information. Your doctor may work with an infectious disease expert at your local health department to determine when you can be around others. How to Manage Common Symptoms Associated with COVID for Adults Fever- Fever is a temperature over 100.4 F and can occur when the body is fighting an infection. To help treat a fever: Drink plenty of fluids and stay well hydrated. Eat small amounts of easy to digest food. Rest. Your body needs rest to recover, but getting up and moving around the house frequently is a good idea. You should try to continue doing your normal daily activities (bathing, toileting, grooming, cooking), though you will probably feel tired, and need to rest often. Avoid any heavy activity or exercise, as this will increase your body temperature. Dress in light clothing and stay covered in a light sheet. Keep the room temperature cool. Take a slightly warm (not cold or cool) bath, or apply damp washcloths to the forehead and wrists. Cough- Cough is a common symptom associated with COVID and can be bothersome. To help treat a cough: Stay well hydrated. Try warm water or tea with lemon and/or honey to help soothe the cough. Use a humidifier to add moisture to the air. Try a product with menthol, like a cough drop or a rub for your chest such as Vicks, which can help reduce cough. Try cough drops. Avoid smoking and other strong odors or perfumes. Try breathing exercises to keep your lungs open and clear. Take a big deep breath through your nose and hold for 5 seconds before slowly releasing. Repeat frequently, while you are awake. Congestion- Runny nose or nasal congestion can occur with COVID. Treatment can help relieve symptoms: Try OTC nasal saline spray, or nasal saline rinse to relieve mucus congestion. Nasal strips can help keep nasal passages open, to increase airflow. Elevating your head with an extra pillow in bed can help reduce congestion. Using a humidifier can increase moisture in the air, and make breathing easier. Sore Throat- Another common symptom with COVID, can be managed at home by: Stay well hydrated. Gargle with salt water mix teaspoon salt with 1 cup of warm water and gargle. This helps to loosen mucus in the back of the throat and may reduce discomfort. Try ice chips, popsicles or lozenges to soothe the throat. Nausea/Vomiting/Diarrhea- These are common symptoms, and staying hydrated is most important. If you are nauseous or vomiting, start with small sips of water every 10-15 minutes and increase as tolerated. You can try sucking an ice cube too. If tolerating, you can try pedialyte or Gatorade, or flat sprite or joseluis-octavio. Start slowly and increase as you are able to. Instead of meals, try smaller, more frequent snacks. Try eating bland foods like crackers, toast, rice, and applesauce. Avoid spicy, greasy or fried foods and dairy containing foods. Even if you aren't feeling hungry due to lack of smell or taste, it is important to try to take in some food when you are able. After drinking and eating, rest in an upright position for up to two hours as needed to help decrease nauseous feelings. Try closing your eyes, avoid moving and watching TV. Avoid strong odors that can make you feel more nauseated. When to seek emergency medical attention Look for emergency warning signs for COVID-19. If having any of these symptoms, seek emergency medical care immediately: Trouble breathing Persistent pain or pressure in the chest New confusion Inability to wake or stay awake Bluish lips or face *This list is not all possible symptoms. Please call your medical provider for any other symptoms that are severe or concerning to you. documented in this encounter [facility] 06-09-2022 History of Present illness Narrative Telemedicine Evaluation for COVID-19 Infection MyChart video visit was used for evaluation of this patient. Location of patient: [facility] Violetta Masters is a 36 year old female who presents with 4 days of symptoms that are worsening. Symptoms include: Fever (?100.4F): No or Chills: Yes Cough: No Shortness of breath: No or Difficulty breathing: No Fatigue: Yes Muscle aches: Yes Headache: No New loss of smell or taste: No Sore throat: No Nasal congestion: No or Rhinorrhea: No Nausea: No or Vomiting: No Diarrhea: No OTC meds/remedies that patient has tried: NSAIDs. High risk category assessment No high risk factors Exposures: Sick contacts? No Family or close contacts with confirmed/probable COVID-19 in last 14 days? No She reports that she has never smoked. She has never used smokeless tobacco. OBJECTIVE VIDEO EXAM (if available) GENERAL: well appearing, alert, in no acute distress HEENT: no conjunctival injection, pupils equal, moist mucous membranes, oropharynx clear without erythema, sinuses tender to self-palpation and no cervical adenopathy by self-palpation PULMONARY: breathing comfortably on room air , no coughing noted and no wheezing noted ASSESSMENT/PLAN (Z20.822) Suspected COVID-19 virus infection (primary encounter diagnosis) Strongly advised testing today, and isolating pending results. Pt states she needs to go to work. And just cant get tested today She agreed to testing tomorrow. I did once again advise pt not go to work today, and offered to write her a letter to excuse her from work. Pt verbalized understanding, declined the letter - Meets symptom-based criteria for testing and is low risk. - Patient scheduled for testing at the time of visit. - Instructed to isolate pending test results - Discussed symptom monitoring and supportive care - Red flag symptoms requiring follow up discussed This patient encounter involved the screening or treatment of novel coronavirus infection (COVID-19). documented in this encounter [facility] 06-09-2022 History of Present illness Narrative Patient cancelled before connecting. Chantelle Amezcua APRN.CNP documented in this encounter [facility] documented as of this encounter (statuses as of 06/09/2022) [facility] History of Past illness Narrative* Problem Noted Date Resolved Date Short interval between pregn ancies affecting , antepartum 04/25/2017 11/30/2017 Overview: 04/25/2017Patient delivered her previous child 10/2016. TKRN History of delivery, currently 04/25/2017 11/30/2017 Overview: 04/25/2017 Pt delivered by C section. She desires a repeat ultrasound by Dr Glasgow. TKRN Late care affecting 7 11/30/2017 Overview: 04/25/2017Patient is 14w5d by dates. She had a positive test at home 03/04/2017. She states she has been scared to come in. Ultrasound ordered by Dr Glasgow. TKRN 11/02/2016 11/06/2016 Pleural effusion, , aff ecting care of mother, antepartum 08/31/2016 11/06/2016 Overview: 09/21/16- stable continue to monitor recheck in 3 weeks Muriel Allen MD 08/31/16: Left sided Pleural effusion noted. Echo and Has repeat ultrasound scheduled and will get viral studies done per [facility]. Mike Glasgow MD Supervision of high risk in [facility] 06/22/2016 11/06/2016 Bleeding in early 06/17/2016 10/0 02/2016 Overview: 06/17/2016 Pt was seen on 06/07 for bleeding in . She had an ultrasound done that revealed an IUP at 5w5d with + cardiac activity. She denies any bleeding since then. TKRN History of depression 06/17/2016 11/30/2017 Overview: 04/25/2017 Pt has a history of depression diagnosed age 20. She has been off medication for 2 months . She is unsure of the name of the antidepressant she was placed on by Dr Cooley. She believes she may need to go back on medication. Advised patient to find out name of medication and let Dr Glasgow know when she comes in for appointment today. Patient does admit to having depression. Discussed increased risks of depression during and and importance of reporting the development or worsening of symptoms should they occur. Pt denies ever having any suicidal thoughts or tendencies or thoughts of hurting others.TKRN Nausea/vomiting in 06/17/2016 Overview: 04/25/2017 Patient is complaining of nausea and vomiting in . Advised patient to call/come in if she is unable to keep any food or fluids down in a 24-hour period. Dr Glasgow ordered Zofran as requested by patient. TKRN Patient requested diagnostic testing 06/17/2016 11/30/2017 Overview: 04/25/2017Desires nuchal ultrasound with sequential testing and CF carrier screening testing History of asthma 06/17/2016 08/17/2016 Obesity in 06/17/2016 11/06/2016 Overview: 04/25/2017Pt is obese. Will plan GCT @ [facility] TKRN Missed ab 01/21/2015 08/17/2016 Ovarian cyst 10/16/2013 08/17/2016 Abdominal pain, epigastric 04/02/201108/17 Nausea and vomiting 03/19/2011 08/17/2016 Epigastric abdominal pain 03/19/20112015 documented as of this encounter (statuses as of 07/08/2022) [facility] History of Past illness Narrative* Problem Noted Date Diagnosed Date Resolved Date Short interval between pregn ancies affecting , antepartum 04/25/2017 11/30/2017 Overview: 04/25/2017Patient delivered her previous child 10/2016. TKRN History of delivery , currently 04/25/2017 11/30/2017 Overview: 04/25/2017 Pt delivered by C section. She desires a repeat ultrasound by Dr Glasgow. TKRN Late care affecting 04/25/2017 11/30/2017 Overview: 04/25/2017Patient is 14w5d by dates. She had a positive test at home 03/04/2017. She states she has been scared to come in. Ultrasound ordered by Dr Glasgow. TKRN 11/02/2016 11/06/2016 Pleural effusion, , aff ecting care of mother, antepartum 08/31/2016 11/06/2016 Overview: 09/21/16- stable continue to monitor recheck in 3 weeks Muriel Allen MD 08/31/16: Left sided Pleural effusion noted. Echo and Has repeat ultrasound scheduled and will get viral studies done per [facility]. Mike Glasgow MD Supervision of high risk pre gnancy in second trimester 06/22/2016 11/06/2016 Bleeding in early 06/17/2016 08/17/2016 Overview: 06/17/2016 Pt was seen on 06/07 for bleeding in . She had an ultrasound done that revealed an IUP at 5w5d with + cardiac activity. She denies any bleeding since then. TKRN History of depression 06/17/20162017 Overview: 04/25/2017 Pt has a history of depression diagnosed age 20. She has been off medication for 2 months . She is unsure of the name of the antidepressant she was placed on by Dr Cooley. She believes she may need to go back on medication. Advised patient to find out name of medication and let Dr Glasgow know when she comes in for appointment today. Patient does admit to having depression. Discussed increased risks of depression during and and importance of reporting the development or worsening of symptoms should they occur. Pt denies ever having any suicidal thoughts or tendencies or thoughts of hurting others.TKRN Nausea/vomiting in 06/17/2016 11/30/2017 Overview: 04/25/2017 Patient is complaining of nausea and vomiting in . Advised patient to call/come in if she is unable to keep any food or fluids down in a 24-hour period. Dr Glasgow ordered Zofran as requested by patient. TKRN Patient requested diagnostic testing 06/17/2016 11/30/2017 Overview: 04/25/2017Desires nuchal ultrasound with sequential testing and CF carrier screening testing History of asthma 06/17/2016 08/17/2016 Obesity in 06/17/2016 016 Overview: 04/25/2017Pt is obese. Will plan GCT @ [facility] TKRN Missed ab 01/21/2015 08/17/2016 Ovarian cyst 10/16/2013 08/17/2016 Abdominal pain, epigastric 04/02/2011 1 Nausea and vomiting 03/19/2011 08/17/20 16 Epigastric abdominal pain 03/19/2011 documented as of this encounter (statuses as of 09/21/2023) [facility] History of Past illness Narrative* Problem Noted Date Diagnosed Date Resolved Date Short interval between pregn ancies affecting , antepartum 04/25/2017 11/30/2017 Overview: 04/25/2017Patient delivered her previous child 10/2016. TKRN History of delivery , currently 04/25/2017 11/30/2017 Overview: 04/25/2017 Pt delivered by C section. She desires a repeat ultrasound by Dr Glasgow. TKRN Late care affecting 04/25/2017 11/30/2017 Overview: 04/25/2017Patient is 14w5d by dates. She had a positive test at home 03/04/2017. She states she has been scared to come in. Ultrasound ordered by Dr Glasgow. TKRN 11/02/2016 11/06/2016 Pleural effusion, , aff ecting care of mother, antepartum 08/31/2016 11/06/2016 Overview: 09/21/16- stable continue to monitor recheck in 3 weeks Muriel Allen MD 08/31/16: Left sided Pleural effusion noted. Echo and Has repeat ultrasound scheduled and will get viral studies done per [facility]. Mike Glasgow MD Supervision of high risk pre gnancy in second trimester 06/22/2016 11/06/2016 Bleeding in early 06/17/2016 08/17/2016 Overview: 06/17/2016 Pt was seen on 06/07 for bleeding in . She had an ultrasound done that revealed an IUP at 5w5d with + cardiac activity. She denies any bleeding since then. TKRN History of depression 06/17/20162017 Overview: 04/25/2017 Pt has a history of depression diagnosed age 20. She has been off medication for 2 months . She is unsure of the name of the antidepressant she was placed on by Dr Cooley. She believes she may need to go back on medication. Advised patient to find out name of medication and let Dr Glasgow know when she comes in for appointment today. Patient does admit to having depression. Discussed increased risks of depression during and and importance of reporting the development or worsening of symptoms should they occur. Pt denies ever having any suicidal thoughts or tendencies or thoughts of hurting others.TKRN Nausea/vomiting in 06/17/2016 11/30/2017 Overview: 04/25/2017 Patient is complaining of nausea and vomiting in . Advised patient to call/come in if she is unable to keep any food or fluids down in a 24-hour period. Dr Glasgow ordered Zofran as requested by patient. TKRN Patient requested diagnostic testing 06/17/2016 11/30/2017 Overview: 04/25/2017Desires nuchal ultrasound with sequential testing and CF carrier screening testing History of asthma 06/17/2016 08/17/2016 Obesity in 06/17/2016 016 Overview: 04/25/2017Pt is obese. Will plan GCT @ [facility] TKRN Missed ab 01/21/2015 08/17/2016 Ovarian cyst 10/16/2013 08/17/2016 Abdominal pain, epigastric 04/02/2011 1 Nausea and vomiting 03/19/2011 08/17/20 16 Epigastric abdominal pain 03/19/2011 documented as of this encounter (statuses as of 09/21/2023) [facility] History of Past illness Narrative* Problem Noted Date Diagnosed Date Resolved Date Short interval between pregn ancies affecting , antepartum 04/25/2017 11/30/2017 Overview: 04/25/2017Patient delivered her previous child 10/2016. TKRN History of delivery , currently 04/25/2017 11/30/2017 Overview: 04/25/2017 Pt delivered by C section. She desires a repeat ultrasound by Dr Glasgow. TKRN Late care affecting 04/25/2017 11/30/2017 Overview: 04/25/2017Patient is 14w5d by dates. She had a positive test at home 03/04/2017. She states she has been scared to come in. Ultrasound ordered by Dr Glasgow. TKRN 11/02/2016 11/06/2016 Pleural effusion, , aff ecting care of mother, antepartum 08/31/2016 11/06/2016 Overview: 09/21/16- stable continue to monitor recheck in 3 weeks Muriel Allen MD 08/31/16: Left sided Pleural effusion noted. Echo and Has repeat ultrasound scheduled and will get viral studies done per [facility]. Mike Glasgow MD Supervision of high risk pre gnancy in second trimester 06/22/2016 11/06/2016 Bleeding in early 06/17/2016 08/17/2016 Overview: 06/17/2016 Pt was seen on 06/07 for bleeding in . She had an ultrasound done that revealed an IUP at 5w5d with + cardiac activity. She denies any bleeding since then. TKRN History of depression 06/17/20162017 Overview: 04/25/2017 Pt has a history of depression diagnosed age 20. She has been off medication for 2 months . She is unsure of the name of the antidepressant she was placed on by Dr Cooley. She believes she may need to go back on medication. Advised patient to find out name of medication and let Dr Glasgow know when she comes in for appointment today. Patient does admit to having depression. Discussed increased risks of depression during and and importance of reporting the development or worsening of symptoms should they occur. Pt denies ever having any suicidal thoughts or tendencies or thoughts of hurting others.TKRN Nausea/vomiting in 06/17/2016 11/30/2017 Overview: 04/25/2017 Patient is complaining of nausea and vomiting in . Advised patient to call/come in if she is unable to keep any food or fluids down in a 24-hour period. Dr Glasgow ordered Zofran as requested by patient. TKRN Patient requested diagnostic testing 06/17/2016 11/30/2017 Overview: 04/25/2017Desires nuchal ultrasound with sequential testing and CF carrier screening testing History of asthma 06/17/2016 08/17/2016 Obesity in 06/17/2016 016 Overview: 04/25/2017Pt is obese. Will plan GCT @ [facility] TKRN Missed ab 01/21/2015 08/17/2016 Ovarian cyst 10/16/2013 08/17/2016 Abdominal pain, epigastric 04/02/2011 1 Nausea and vomiting 03/19/2011 08/17/20 16 Epigastric abdominal pain 03/19/2011 documented as of this encounter (statuses as of 09/23/2023) [facility]2017 History of Past illness Narrative* Problem Noted Date Diagnosed Date Resolved Date Short interval between pregn ancies affecting , antepartum 04/25/2017 11/30/2017 Overview: 04/25/2017Patient delivered her previous child 10/2016. TKRN History of delivery , currently 04/25/2017 11/30/2017 Overview: 04/25/2017 Pt delivered by C section. She desires a repeat ultrasound by Dr Glasgow. TKRN Late care affecting 04/25/2017 11/30/2017 Overview: 04/25/2017Patient is 14w5d by dates. She had a positive test at home 03/04/2017. She states she has been scared to come in. Ultrasound ordered by Dr Glasgow. TKRN 11/02/2016 11/06/2016 Pleural effusion, , aff ecting care of mother, antepartum 08/31/2016 11/06/2016 Overview: 09/21/16- stable continue to monitor recheck in 3 weeks Muriel Allen MD 08/31/16: Left sided Pleural effusion noted. Echo and Has repeat ultrasound scheduled and will get viral studies done per [facility]. Mike Glasgow MD Supervision of high risk pre gnancy in second trimester 06/22/2016 11/06/2016 Bleeding in early 06/17/2016 08/17/2016 Overview: 06/17/2016 Pt was seen on 06/07 for bleeding in . She had an ultrasound done that revealed an IUP at 5w5d with + cardiac activity. She denies any bleeding since then. TKRN History of depression 06/17/20162017 Overview: 04/25/2017 Pt has a history of depression diagnosed age 20. She has been off medication for 2 months . She is unsure of the name of the antidepressant she was placed on by Dr Cooley. She believes she may need to go back on medication. Advised patient to find out name of medication and let Dr Glasgow know when she comes in for appointment today. Patient does admit to having depression. Discussed increased risks of depression during and and importance of reporting the development or worsening of symptoms should they occur. Pt denies ever having any suicidal thoughts or tendencies or thoughts of hurting others.TKRN Nausea/vomiting in 06/17/2016 11/30/2017 Overview: 04/25/2017 Patient is complaining of nausea and vomiting in . Advised patient to call/come in if she is unable to keep any food or fluids down in a 24-hour period. Dr Glasgow ordered Zofran as requested by patient. TKRN Patient requested diagnostic testing 06/17/2016 11/30/2017 Overview: 04/25/2017Desires nuchal ultrasound with sequential testing and CF carrier screening testing History of asthma 06/17/2016 08/17/2016 Obesity in 06/17/2016 016 Overview: 04/25/2017Pt is obese. Will plan GCT @ [facility] TKRN Missed ab 01/21/2015 08/17/2016 Ovarian cyst 10/16/2013 08/17/2016 Abdominal pain, epigastric 04/02/2011 1 Nausea and vomiting 03/19/2011 08/17/20 16 Epigastric abdominal pain 03/19/2011 documented as of this encounter (statuses as of 09/23/2023) [facility]* Diagnosis Treatment not available- Primary Procedure not carried out for other reasons [facility] Diagnosis Suspected COVID-19 virus infection- Primary [facility]* Diagnosis Acute sinusitis, recurrence not specified, unspecified location- Primary [facility]* Diagnosis Cervical myelopathy (HCC)- Primary Cervical spondylosis with myelopathy Strain of neck muscle, initial encounter documented [facility]* Diagnosis Strain of neck muscle, initial encounter [facility] Diagnosis Abnormal uterine bleeding (AUB) [facility]* Diagnosis Hyperreflexia- Primary Abnormal reflex Cervical myelopathy (HCC) Cervical spondylosis with myelopathy documented in this encounter [facility] for referral (narrative)* Diagnostic Procedure Only (Routine) - Pending Review Specialty Diagnoses / Procedures Referred By Ann pino Referred To Contact XR IMAGING Diagnoses Strain of neck muscle, initial encounter Procedures XR CERV OTHER 4V AP/LAT/FLX/EXT RADEX SPINE CERVICAL 4 OR 5 VIEWS Adalid Lorenz, [address] [place] [address] [place] [address] Referral ID Status Reason Start Date Expiration Date Visits Requested Visits Authorized [id number] Pending Review Auto-Generat ed Referral 09/16/2023 10/15/2024 1 1 [facility] for visit Narrative* Diagnostic Procedure Only (Routine) - Pending Review Specialty Diagnoses / Procedures Referred By Contjohn t Referred To Contact XR IMAGING Diagnoses Strain of neck muscle, initial encounter Procedures XR CERV OTHER 4V AP/LAT/FLX/EXT RADEX SPINE CERVICAL 4 OR 5 VIEWS Adalid Lorenz, DO [address] [place] [address] [place] [address] Referral ID Status Reason Start Date Expiration Date Visits Requested Visits Authorized [id number] Pending Review Auto-Generat ed Referral 09/16/2023 10/15/2024 1 1 [facility] Summary Purpose Family History No Family History Records FoundUnknown Family Member Name Dates Details Alcohol Abuse Comments:Mother Status:Active Anxiety Disorder Comments:Mother Status:Active Colon Cancer Comments:Maternal Grandfathe r Status:Active Depression Comments:Mother Status:Active Diabetes Mellitus Comments:Maternal Grandfathe r Status:Active First Degree Relatives Comments:Lupus Status:Active Hypercholesterolemia Comments:Mother Status:Active Leukemia Comments:Maternal Grandmothe r, First Degree Relatives Status:Active Liver Disease, Chronic Comments:Mother Status:Active Seizure Disorder Comments:Mother Status:Active Unknown Family Member Name Dates Details Alcohol Abuse Comments:Mother Status:Active Anxiety Disorder Comments:Mother Status:Active Colon Cancer Comments:Maternal Grandfathe r Status:Active Depression Comments:Mother Status:Active Diabetes Mellitus Comments:Maternal Grandfathe r Status:Active First Degree Relatives Comments:Lupus Status:Active Hypercholesterolemia Comments:Mother Status:Active Leukemia Comments:Maternal Grandmothe r, First Degree Relatives Status:Active Liver Disease, Chronic Comments:Mother Status:Active Seizure Disorder Comments:Mother Status:Active Unknown Family Member Name Dates Details Alcohol Abuse Comments:Mother Status:Active Anxiety Disorder Comments:Mother Status:Active Colon Cancer Comments:Maternal Grandfathe r Status:Active Depression Comments:Mother Status:Active Diabetes Mellitus Comments:Maternal Grandfathe r Status:Active First Degree Relatives Comments:Lupus Status:Active Hypercholesterolemia Comments:Mother Status:Active Leukemia Comments:Maternal Grandmothe r, First Degree Relatives Status:Active Liver Disease, Chronic Comments:Mother Status:Active Seizure Disorder Comments:Mother Status:Active Advance Directives No Advanced Directives Records FoundDocuments on File Type Date Recorded Patient Gypsum Calciner Expl anation Advance Directive(s) 11/03/2016 10:28 AM Instructions Name Dates Details BMI 33.0-33.9,adult : How to access health information online - Detail Indication:BMI 33.0-33.9,adult BMI 33.0-33.9,adult : Patien t Instructions Indication:BMI 33.0-33.9,adult Cough : How to access health information online Indication:Cough Cough : How to access health information online - Detail Indication:Cough Cough : Patient Instructions Indication:Cough Vitamin B12 deficiency : How to access health information online - Detail Indication:Vitamin B12 deficiency Vitamin B12 deficiency : Pat ient Instructions Indication:Vitamin B12 deficiency Nonsmoker : How to access he alth information online Indication:Nonsmoker Nonsmoker : How to access he alth information online - Detail Indication:Nonsmoker Nonsmoker : Patient Instruct ions Indication:Nonsmoker Complicated grieving : How t o access health information online Indication:Complicated grieving Complicated grieving : How t o access health information online - Detail Indication:Complicated grieving Complicated grieving : Fainae nt Instructions Indication:Complicated grieving Acute asthma exacerbation (R enamed from Asthma with acute exacerbation) : How to access health information online Indication:Acute asthma exacerbation (Renamed from Asthma with acute exacerbation) Acute asthma exacerbation (R enamed from Asthma with acute exacerbation) : How to access health information online - Detail Indication:Acute asthma exacerbation (Renamed from Asthma with acute exacerbation) Acute asthma exacerbation (R enamed from Asthma with acute exacerbation) : Patient Instructions Indication:Acute asthma exacerbation (Renamed from Asthma with acute exacerbation) Paresthesia : How to access health information online Indication:Paresthesia Paresthesia : How to access health information online - Detail Indication:Paresthesia Paresthesia : Patient Instru ctions Indication:Paresthesia Weight gain : Patient Instru ctions Indication:Weight gain Weight gain : How to access health information online Indication:Weight gain Weight gain : How to access health information online - Detail Indication:Weight gain BMI 33.0-33.9,adult : obesit y counseling Indication:BMI 33.0-33.9,adult Lupus erythematosus (Renamed from Inflammatory autoimmune disorder) : How to access health information online Indication:Lupus erythematosus (Renamed from Inflammatory autoimmune disorder) Lupus erythematosus (Renamed from Inflammatory autoimmune disorder) : How to access health information online - Detail Indication:Lupus erythematosus (Renamed from Inflammatory autoimmune disorder) Lupus erythematosus (Renamed from Inflammatory autoimmune disorder) : Patient Instructions Indication:Lupus erythematosus (Renamed from Inflammatory autoimmune disorder) Frequent stools : Patient In structions Indication:Frequent stools Flank pain : Patient Instruc tions Indication:Flank pain Cyst, ovarian : Patient Inst ructions Indication:Cyst, ovarian OBESITY NOS : Patient Instru ctions Indication:OBESITY NOS Neoplasm of uncertain behavi or of skin : Patient Instructions Indication:Neoplasm of uncertain behavior of skin Name Dates Details How to access health informa tion online - Detail Indication:BMI 33.0-33.9,adult Start:18-Aug-2018 Instruction Type:Patient Education Patient Instructions Indication:BMI 33.0-33.9,adult Start:18-Aug-2018 Instruction Type:Provider Instructions for Treatment How to access health informa tion online Indication:Cough Start:14-Sep-2017 Instruction Type:Patient Education How to access health informa tion online - Detail Indication:Cough Start:14-Sep-2017 Instruction Type:Patient Education Patient Instructions Indication:Cough Start:14-Sep-2017 Instruction Type:Provider Instructions for Treatment How to access health informa tion online - Detail Indication:Vitamin B12 deficiency Start:05-Jul-2017 Instruction Type:Patient Education Patient Instructions Indication:Vitamin B12 deficiency Start:05-Jul-2017 Instruction Type:Provider Instructions for Treatment How to access health informa tion online Indication:Nonsmoker Start:24-Jun-2017 Instruction Type:Patient Education How to access health informa tion online - Detail Indication:Nonsmoker Start:24-Jun-2017 Instruction Type:Patient Education Patient Instructions Indication:Nonsmoker Start:24-Jun-2017 Instruction Type:Provider Instructions for Treatment How to access health informa tion online Indication:Complicated grieving Start:22-Nov-2016 Instruction Type:Patient Education How to access health informa tion online - Detail Indication:Complicated grieving Start:22-Nov-2016 Instruction Type:Patient Education Patient Instructions Indication:Complicated grieving Start:22-Nov-2016 Instruction Type:Provider Instructions for Treatment How to access health informa tion online Indication:Acute asthma exacerbation (Renamed from Asthma with acute exacerbation) Start:01-Sep-2016 Instruction Type:Patient Education How to access health informa tion online - Detail Indication:Acute asthma exacerbation (Renamed from Asthma with acute exacerbation) Start:01-Sep-2016 Instruction Type:Patient Education Patient Instructions Indication:Acute asthma exacerbation (Renamed from Asthma with acute exacerbation) Start:01-Sep-2016 Instruction Type:Provider Instructions for Treatment How to access health informa tion online Indication:Paresthesia Start:09-Jan-2016 Instruction Type:Patient Education How to access health informa tion online - Detail Indication:Paresthesia Start:09-Jan-2016 Instruction Type:Patient Education Patient Instructions Indication:Paresthesia Start:09-Jan-2016 Instruction Type:Provider Instructions for Treatment Patient Instructions Indication:Weight gain Start:26-Dec-2014 Instruction Type:Provider Instructions for Treatment How to access health informa tion online Indication:Weight gain Start:04-Dec-2014 Instruction Type:Patient Education How to access health informa tion online - Detail Indication:Weight gain Start:04-Dec-2014 Instruction Type:Patient Education Patient Instructions Indication:Weight gain Start:04-Dec-2014 Instruction Type:Provider Instructions for Treatment obesity counseling Indication:BMI 33.0-33.9,adult Start:20-Nov-2014 Instruction Type:Provider Instructions for Treatment How to access health informa tion online Indication:Lupus erythematosus (Renamed from Inflammatory autoimmune disorder) Start:20-Nov-2014 Instruction Type:Patient Education How to access health informa tion online - Detail Indication:Lupus erythematosus (Renamed from Inflammatory autoimmune disorder) Start:20-Nov-2014 Instruction Type:Patient Education Patient Instructions Indication:Lupus erythematosus (Renamed from Inflammatory autoimmune disorder) Start:20-Nov-2014 Instruction Type:Provider Instructions for Treatment Patient Instructions Indication:Frequent stools Start:12-Nov-2014 Instruction Type:Provider Instructions for Treatment How to access health informa tion online Indication:Cough Start:12-Nov-2014 Instruction Type:Patient Education How to access health informa tion online - Detail Indication:Cough Start:12-Nov-2014 Instruction Type:Patient Education Patient Instructions Indication:Cough Start:12-Nov-2014 Instruction Type:Provider Instructions for Treatment How to access health informa tion online Indication:Cough Start:05-Nov-2014 Instruction Type:Patient Education How to access health informa tion online - Detail Indication:Cough Start:05-Nov-2014 Instruction Type:Patient Education Patient Instructions Indication:Cough Start:05-Nov-2014 Instruction Type:Provider Instructions for Treatment Patient Instructions Indication:Flank pain Start:05-Nov-2013 Instruction Type:Provider Instructions for Treatment Patient Instructions Indication:Cyst, ovarian Start:19-Oct-2013 Instruction Type:Provider Instructions for Treatment Patient Instructions Indication:OBESITY NOS Start:05-Oct-2013 Instruction Type:Provider Instructions for Treatment Patient Instructions Indication:Neoplasm of uncertain behavior of skin Start:22-Dec-2012 Instruction Type:Provider Instructions for Treatment Name Dates Details How to access health informa tion online - Detail Indication:BMI 33.0-33.9,adult Start:18-Aug-2018 Instruction Type:Patient Education Patient Instructions Indication:BMI 33.0-33.9,adult Start:18-Aug-2018 Instruction Type:Provider Instructions for Treatment How to access health informa tion online Indication:Cough Start:14-Sep-2017 Instruction Type:Patient Education How to access health informa tion online - Detail Indication:Cough Start:14-Sep-2017 Instruction Type:Patient Education Patient Instructions Indication:Cough Start:14-Sep-2017 Instruction Type:Provider Instructions for Treatment How to access health informa tion online - Detail Indication:Vitamin B12 deficiency Start:05-Jul-2017 Instruction Type:Patient Education Patient Instructions Indication:Vitamin B12 deficiency Start:05-Jul-2017 Instruction Type:Provider Instructions for Treatment How to access health informa tion online Indication:Nonsmoker Start:24-Jun-2017 Instruction Type:Patient Education How to access health informa tion online - Detail Indication:Nonsmoker Start:24-Jun-2017 Instruction Type:Patient Education Patient Instructions Indication:Nonsmoker Start:24-Jun-2017 Instruction Type:Provider Instructions for Treatment How to access health informa tion online Indication:Complicated grieving Start:22-Nov-2016 Instruction Type:Patient Education How to access health informa tion online - Detail Indication:Complicated grieving Start:22-Nov-2016 Instruction Type:Patient Education Patient Instructions Indication:Complicated grieving Start:22-Nov-2016 Instruction Type:Provider Instructions for Treatment How to access health informa tion online Indication:Acute asthma exacerbation (Renamed from Asthma with acute exacerbation) Start:01-Sep-2016 Instruction Type:Patient Education How to access health informa tion online - Detail Indication:Acute asthma exacerbation (Renamed from Asthma with acute exacerbation) Start:01-Sep-2016 Instruction Type:Patient Education Patient Instructions Indication:Acute asthma exacerbation (Renamed from Asthma with acute exacerbation) Start:01-Sep-2016 Instruction Type:Provider Instructions for Treatment How to access health informa tion online Indication:Paresthesia Start:09-Jan-2016 Instruction Type:Patient Education How to access health informa tion online - Detail Indication:Paresthesia Start:09-Jan-2016 Instruction Type:Patient Education Patient Instructions Indication:Paresthesia Start:09-Jan-2016 Instruction Type:Provider Instructions for Treatment Patient Instructions Indication:Weight gain Start:26-Dec-2014 Instruction Type:Provider Instructions for Treatment How to access health informa tion online Indication:Weight gain Start:04-Dec-2014 Instruction Type:Patient Education How to access health informa tion online - Detail Indication:Weight gain Start:04-Dec-2014 Instruction Type:Patient Education Patient Instructions Indication:Weight gain Start:04-Dec-2014 Instruction Type:Provider Instructions for Treatment obesity counseling Indication:BMI 33.0-33.9,adult Start:20-Nov-2014 Instruction Type:Provider Instructions for Treatment How to access health informa tion online Indication:Lupus erythematosus (Renamed from Inflammatory autoimmune disorder) Start:20-Nov-2014 Instruction Type:Patient Education How to access health informa tion online - Detail Indication:Lupus erythematosus (Renamed from Inflammatory autoimmune disorder) Start:20-Nov-2014 Instruction Type:Patient Education Patient Instructions Indication:Lupus erythematosus (Renamed from Inflammatory autoimmune disorder) Start:20-Nov-2014 Instruction Type:Provider Instructions for Treatment Patient Instructions Indication:Frequent stools Start:12-Nov-2014 Instruction Type:Provider Instructions for Treatment How to access health informa tion online Indication:Cough Start:12-Nov-2014 Instruction Type:Patient Education How to access health informa tion online - Detail Indication:Cough Start:12-Nov-2014 Instruction Type:Patient Education Patient Instructions Indication:Cough Start:12-Nov-2014 Instruction Type:Provider Instructions for Treatment How to access health informa tion online Indication:Cough Start:05-Nov-2014 Instruction Type:Patient Education How to access health informa tion online - Detail Indication:Cough Start:05-Nov-2014 Instruction Type:Patient Education Patient Instructions Indication:Cough Start:05-Nov-2014 Instruction Type:Provider Instructions for Treatment Patient Instructions Indication:Flank pain Start:05-Nov-2013 Instruction Type:Provider Instructions for Treatment Patient Instructions Indication:Cyst, ovarian Start:19-Oct-2013 Instruction Type:Provider Instructions for Treatment Patient Instructions Indication:OBESITY NOS Start:05-Oct-2013 Instruction Type:Provider Instructions for Treatment Patient Instructions Indication:Neoplasm of uncertain behavior of skin Start:22-Dec-2012 Instruction Type:Provider Instructions for Treatment Reason for Referral Specialty Diagnoses / Procedures Referred By Ann pino Referred To Contact Neurology Diagnoses Hyperreflexia Procedures CONSULT TO NEUROLOGY OFFICE/OUTPATIENT [facility] 60-74 MINUTES Adalid Lorenz, DO [address] [place] [address] Referral ID Status Reason Start Date Expiration Date Visits Requested Visits Authorized [id number] Pending Review PCP Requested Referral 3 09/22/2024 1 1 Additional Source Comments INFORMATION SOURCE (unrecogn ized section and content) DATE CREATED AUTHOR AUTHOR'S ORGANIZ ATION 09/25/2023 [facility] DATE CREATED AUTHOR AUTHOR'S ORGANIZ ATION 11/29/2023 [facility] Source Comments (unrecognize d section and content) In the event this informatio n is protected by the Federal Confidentiality of Alcohol and Drug Abuse Patient Records regulations: The Federal rules restrict any use of the information to criminally investigate or prosecute any alcohol or drug abuse patient.[facility] the event this information is protected by the Federal Confidentiality of Alcohol and Drug Abuse Patient Records regulations: The Federal rules restrict any use of the information to criminally investigate or prosecute any alcohol or drug abuse patient.[facility] the event this information is protected by the Federal Confidentiality of Alcohol and Drug Abuse Patient Records regulations: The Federal rules restrict any use of the information to criminally investigate or prosecute any alcohol or drug abuse patient.[facility] the event this information is protected by the Federal Confidentiality of Alcohol and Drug Abuse Patient Records regulations: The Federal rules restrict any use of the information to criminally investigate or prosecute any alcohol or drug abuse patient.[facility] the event this information is protected by the Federal Confidentiality of Alcohol and Drug Abuse Patient Records regulations: The Federal rules restrict any use of the information to criminally investigate or prosecute any alcohol or drug abuse patient.[facility] the event this information is protected by the Federal Confidentiality of Alcohol and Drug Abuse Patient Records regulations: The Federal rules restrict any use of the information to criminally investigate or prosecute any alcohol or drug abuse patient.[facility] the event this information is protected by the Federal Confidentiality of Alcohol and Drug Abuse Patient Records regulations: The Federal rules restrict any use of the information to criminally investigate or prosecute any alcohol or drug abuse patient.[facility] Reason for Visit (unrecogniz ed section and content) Reason Comments Covid19 Concern Reason Comments Sore Throat Cough, ear pain in b oth ears, chills off and on x 1 month Reason Comments New Specialty Diagnoses / Procedures Referred By Contac t Referred To Contact Orthopedics / ORTHOPAEDIC SURGERY Diagnoses [facility] - Cervical images in epic Procedures NEW PATIENT Breezy Trejo PA-C [address] [place] [address] Adalid Lorenz DO [address] [place] [address] Referral ID Status Reason Start Date Expiration Date V isits Requested Visits Authorized [id number] Closed Patient Cleared - Admin/Chairm an/Director advise to proceed or did not respond 09/20/2023 09/28/2023 1 1 Reason Comments Radiology US Specialty Diagnoses / Procedures Referred By Contac t Referred To Contact US IMAGING Diagnoses Abnormal uterine bleeding (AUB) Procedures US FEMALE PELVIS TRANSVAG US TRANSVAGINAL Mike Christianson MD [address] [place] [address] [place] [address] Referral ID Status Reason Start Date Expiration Date V isits Requested Visits Authorized [id number] Closed Auto-Generate d Referral 09/14/2023 10/13/2024 1 1 Reason Comments Established Patient Specialty Diagnoses / Procedures Referred By Contac t Referred To Contact Orthopedics / ORTHOPAEDIC SURGERY Diagnoses pt to bring mri disc Procedures EST PATIENT Self Adalid Lorenz DO [address] [place] [address] Referral ID Status Reason Start Date Expiration Date Visits Requested Visits Authorized [id number] New Request Patient Cleared - Admin/Chair man/Directo r advise to proceed or did not respond 3 12/20/2023 1 1 Care Teams (unrecognized sec tion and content) Toll Operator Relationship Specialty Start Date End Date Domi Stanton MD [address] [place], [place] [phone] PCP - General Family Practice 08/06/19 Toll Operator Relationship Specialty Start Date End Date Domi Stanton MD [address] [place], [place] [phone] PCP - General Family Medicine 08/06/19 Toll Operator Relationship Specialty Start Date End Date Domi Stanton MD [address] [place], [place] [id number] PCP - General Family Medicine 08/06/19 Toll Operator Relationship Specialty Start Date End Date Domi Stanton MD [address] [place], [place] [phone] PCP - General Family Medicine 08/06/19 Toll Operator Relationship Specialty Start Date End Date Domi Stanton MD [address] [place], [place] [phone] PCP - General Family Medicine 08/06/19 FOR RECORDS PERTAINING TO PATIENTS WHO ARE OR HAVE BEEN ENROLLED IN A CHEMICAL DEPENDENCY/SUBSTANCEABUSE PROGRAM, SOME INFORMATION MAY BE OMITTED. This clinical summary was aggregated from multiple sources. Caution should be exercised in using it in the provision of clinical care. This summary normalizes information from multiple sources, and as a consequence, information in this document may materially change the coding, format and clinical context of patient data. In addition, data may be omitted in some cases. CLINICAL DECISIONS SHOULD BE BASED ON THE PRIMARY CLINICAL RECORDS. [facility] [employer] [facility]. provides no warranty or guarantee of the accuracy or completeness of information in this document.
[2023-12-24] MEDS: AMOXICILLIN 500 MG CAPSULE PO (16:39)
[2023-12-24] MEDS: Ibuprofen 600 MG Tablet PO (16:39)
[2023-12-24] MEDS: Ondansetron ODT 4 MG Tablet PO (16:39)
== END 2023-12-24 17:23 | disposition home or self-care (01) ==
PROVIDERS: Emergency Provider Student in an Organized Health Care Education/Training Program; PCP Family Medicine; Visit Provider Student in an Organized Health Care Education/Training Program
DX: H66.92 Otitis media, unspecified, left ear (principal); J06.9 Acute upper respiratory infection, unspecified
CPT/HCPCS: 99283

== ENCOUNTER 2025-01-04 18:14 | Inpatient (IN) | payer BC, SELFPAY ==
[2025-01-04] VITALS (7 sets, daily range): BP systolic 131–164; BP diastolic 78–112; PULSE 102–129; RESP 17–32; TEMP 36.6; O2SAT 98–100; BMI 39.3
--- NOTE | 2025-01-04 18:25 | RAD_ITS ---
PROCEDURE: CHEST 1 VIEW (PORTABLE) REASON FOR EXAM: 39-year-old female, shortness of breath and chest pain x2 months. TECHNIQUE: Frontal view of the chest. COMPARISON: CTA chest 11/28/2023. FINDINGS: The heart size is normal. The lungs are clear. No focal consolidation, pleural effusion or pneumothorax. The bones are unremarkable. RAD/Chest 1 View (Portable) IMPRESSION: NEGATIVE CHEST. Reading Location: [id number]
[2025-01-04] MEDS: Albuterol 2.5 MG/3 ML VIAL.NEB. INHALATION ×3 (21:12→21:57)
[2025-01-04] MEDS: predniSONE 20 MG Tablet 60 MG PO (21:37)
[2025-01-04] MEDS: guaiFENesin Dm 10 ML UDC 5 ML PO (21:41)
--- NOTE | 2025-01-04 22:10 | EX.ED.DYSGE1 ---
HPI <Dr. Jose Alfredo Saba MD - Last Filed: 01/08/25 11:52> History of Present Illness Chief Complaint: Shortness of Breath Detail of Chief Complaint: Shortness of breath, cough and wheezing Informant: patient Onset/Context/Timing Onset: Weeks (Patient has been ill for several weeks to months. She was seen several weeks ago at urgent care and placed on an antibiotic. She was told by the provide that it was very potent. She reports is a white pill and took it twice a day. She completed the antibiotic 2 weeks ago. She recently completed) Context: Sudden Onset Timing: Continuous and Waxes and wanes Quality: Cough, congestion, wheezing Current Severity: Mild Maximum Severity: Moderate Worsened by: Coughing Relieved by: Improves with rescue inhaler not on long-term inhaler Associated Symptoms Associated Symptoms: Rhinorrhea, congestion and sore throat. Narrative Narrative: Patient is a 39-year-old woman. She has history of asthma, gestational hypertension. Review of prior records EKG was on Augmentin twice a day and 40 mg of prednisone for 5 days. She denies headache, she denies double vision blurry vision loss of vision. Denies photophobia, neck pain or neck stiffness. She does have a cough which is nonproductive. She does endorse wheezing. She states she has a intractable cough. She has not taken anything for the cough. She denies chest discomfort of any type. She has no history of VTE. Denies leg pain, swelling or discoloration. She denies abdominal pain, nausea, vomiting or diarrhea. She denies dysuria, frequency, urgency or hematuria. Prior similar symptoms: Yes Recent Illness/Hospitalization: Yes PFS <Dr. Jose Alfredo Saba MD - Last Filed: 01/08/25 11:52> [facility] Medical History Obesity Anxiety and depression Chronic headaches High cholesterol Lupus Chronic pain Asthma Kidney stones Home Medications ?Medication ?Instructions ?Recorded ?Last Taken ?Type albuterol sulfate 90 mcg/actuation 2 puff inhalation Q4H PRN PRN 11/28/23 Unknown Rx aerosol inhaler (Ventolin HFA) Wheezing ##1 Allergy/AdvReac Type Severity Reaction Status Date / Time benzonatate (From Tessalon Allergy Mild Swelling Verified 01/04/25 18:17 [place]) Family History (Updated 01/05/25 @ 03:[address] Aracelis Siddiqui MD) Mother Asthma Diabetes Hypertension Alcoholic cirrhosis of liver Alcohol abuse Father Nephrolithiasis Surgical History H/O section History of tonsillectomy and adenoidectomy History of dilatation and curettage History of lithotripsy S/P arthroscopic surgery of right knee Social History (Updated 01/05/25 @ 03:[address] Aracelis Siddiqui MD) household members: other details: Notes she lives alone except for her younger daughter. Smoking Status: Never smoker alcohol intake: never substance use type: does not use ROS <Dr. Jose Alfredo Saba MD - Last Filed: 01/08/25 11:52> ROS ED Constitutional Constitutional ED: Reports sweats; Denies chills, fever(s), subjective or weight loss Eyes Eyes: Denies blurry vision or change in vision ENT ENT ED: Reports rhinorrhea and sore throat; Denies ear pain Cardiovascular Cardiovascular: Denies chest pain, orthopnea, palpitations or paroxysmal nocturnal dyspnea Respiratory/Chest Respiratory/Chest: Reports cough, dyspnea and dyspnea on exertion; Denies orthopnea, paroxysmal nocturnal dyspnea or sputum Gastrointestinal Gastrointestinal: Denies abdominal pain, nausea or vomiting Genitourinary Genitourinary ED: Denies dysuria, hematuria or urinary frequency Musculoskeletal Musculoskeletal: Denies arthralgias, back pain, myalgias or neck pain Integumentary Denies rash Neurologic Neurologic: Denies headache(s) Psychiatric Psychiatric: Denies anxiety or depression Endocrine Endocrinology: Denies cold intolerance or heat intolerance Hematologic/Lymphatic Hematologic/Lymphatic: Reports systems reviewed and no addt'l complaints, except as documented EXAM <Dr. Jose Alfredo Saba MD - Last Filed: 01/08/25 11:52> Physical Exam Const Vital Signs: 01/04/25 18:14 01/04/25 18:18 01/04/25 18:18 Temperature 97.8 F Temperature Source Temporal Pulse Rate 102 H Respiratory Rate 20 H 32 H Respiratory Effort Respiratory Pattern Blood Pressure 131/112 H Blood Pressure Mean 118 Pulse Ox 100 100 Oxygen Delivery Method Room Air Room Air Room Air 01/04/25 20:14 01/04/25 20:58 01/04/25 21:01 Temperature Temperature Source Pulse Rate 107 H Respiratory Rate 17 Respiratory Effort Labored Respiratory Pattern Blood Pressure 164/85 H Blood Pressure Mean 111 Pulse Ox 99 99 Oxygen Delivery Method Room Air Room Air Room Air 01/04/25 21:12 01/04/25 22:00 01/05/25 00:00 Temperature Temperature Source Pulse Rate 129 H 120 H 128 H Respiratory Rate 24 H 20 H 29 H Respiratory Effort Respiratory Pattern Tachypnea Blood Pressure 160/78 H Blood Pressure Mean 105 Pulse Ox 99 99 Oxygen Delivery Method Room Air Room Air 01/05/25 00:54 Temperature Temperature Source Pulse Rate Respiratory Rate Respiratory Effort Respiratory Pattern Blood Pressure 140/71 H Blood Pressure Mean 94 Pulse Ox Oxygen Delivery Method Positive well nourished and well developed Constitutional Narrative: BMI is elevated. Patient is hypertensive and tachycardic and tachypneic. She is not hypoxic or febrile. General Appearance ED: well developed; Negative for pallor HEENT Reports moist mucous membranes HEENT Narrative: Ears are normal. Nares patent with clear drainage. Posterior pharynx unremarkable. Eyes PERRL and EOMs intact bilaterally General Eye ED: Negative for pale conjunctiva or scleral icterus Neck no lymphadenopathy, supple and no JVD Chest Wall inspection of chest normal and palpation of chest normal Resp No normal respiratory effort and No clear to auscultation bilaterally Effort and Inspection: Negative for retractions or pain with movement Auscultation: wheezes expiratory wheezes and throughout Cardio regular rhythm, S1 normal heart sound, S2 normal heart sound and no murmurs Rate: tachycardic GI normal to inspection, nondistended, normoactive bowel sounds, non-tender, non-distended and no masses; Negative for hepatosplenomegaly Back/Spine no CVA tenderness Extremity normal to inspection General Extremety ED: Negative for edema or tenderness General Extremity: Negative for edema Neuro oriented x3 and CN's II-XII intact bilaterally Sensorium / Orientation: alert Psych mental status grossly normal Skin no rashes or lesions noted and no wounds General Skin Exam: Negative for jaundice or pallor <Dr. Moiz Vanegas, DO - Last Filed: 01/05/25 02:45> Physical Exam Const Vital Signs: 01/04/25 18:14 01/04/25 18:18 01/04/25 18:18 Temperature 97.8 F Temperature Source Temporal Pulse Rate 102 H Respiratory Rate 20 H 32 H Respiratory Effort Respiratory Pattern Blood Pressure 131/112 H Blood Pressure Mean 118 Pulse Ox 100 100 Oxygen Delivery Method Room Air Room Air Room Air 01/04/25 20:14 01/04/25 20:58 01/04/25 21:01 Temperature Temperature Source Pulse Rate 107 H Respiratory Rate 17 Respiratory Effort Labored Respiratory Pattern Blood Pressure 164/85 H Blood Pressure Mean 111 Pulse Ox 99 99 Oxygen Delivery Method Room Air Room Air Room Air 01/04/25 21:12 01/04/25 22:00 01/05/25 00:00 Temperature Temperature Source Pulse Rate 129 H 120 H 128 H Respiratory Rate 24 H 20 H 29 H Respiratory Effort Respiratory Pattern Tachypnea Blood Pressure 160/78 H Blood Pressure Mean 105 Pulse Ox 99 99 Oxygen Delivery Method Room Air Room Air 01/05/25 00:54 Temperature Temperature Source Pulse Rate Respiratory Rate Respiratory Effort Respiratory Pattern Blood Pressure 140/71 H Blood Pressure Mean 94 Pulse Ox Oxygen Delivery Method [facility] <Dr. Jose Alfredo Saba MD - Last Filed: 01/08/25 11:52> [facility] Narrative Medical decision making narrative: Patient with exacerbation of her asthma. She is on no long-acting meds. Because she has been sick for weeks will obtain x-ray to assess for pneumonia. Rapid antigen for COVID RSV and influenza was ordered since she has not been tested. Patient was treated with albuterol x 3. She was given oral prednisone. Lab Data Lab results narrative: Rapid antigen for COVID, influenza and RSV are all negative. Radiography Chest X-Ray - ED: 1 View and Read by ED Physician (Notable chest x-ray ordered per nurse protocol. Chest x-ray shows normal cardiac silhouette and size. There is some increased markings right side which was noted on prior x-ray in November. Hilum is normal. Osseous structures are unremarkable.) Diagnostic Testing: Clinical Impression(s) from Imaging Studies Chest X-Ray 01/04/25 18:25 IMPRESSION: NEGATIVE CHEST. Reading Location: [facility] Treatment and Re-Evaluation :: Patient was reassessed [id number]. Patient was wheezing at that time. IV magnesium was ordered. Patient was reassessed at 0040. She has slight wheezing at this time. Her main issue is that she goes into bronchospasm after coughing. Robitussin AC was ordered however there is national shortage and we are out of stock. Hycodan was not available either. For this reason Robitussin DM was ordered which had initially resulted in improvement. The case will be turned over to the evening physician. If she is still wheezing after IV magnesium she will require admission to the hospital. Comments:: Disposition to be made by the evening physician after the IV magnesium has infused. <Dr. Moiz Vanegas, DO - Last Filed: 01/05/25 02:45> [facility] History & Record Review Discussion w/independent historian: Patient Radiography Diagnostic Testing: Clinical Impression(s) from Imaging Studies Chest X-Ray 01/04/25 18:25 IMPRESSION: NEGATIVE CHEST. Reading Location: [facility] Management Discussion w/another healthcare provider: Hospitalist Treatment and Re-Evaluation :: Patient was reassessed [id number]. Patient was wheezing at that time. IV magnesium was ordered. Patient was reassessed at 0040. She has slight wheezing at this time. Her main issue is that she goes into bronchospasm after coughing. Robitussin AC was ordered however there is national shortage and we are out of stock. Hycodan was not available either. For this reason Robitussin DM was ordered which had initially resulted in improvement. The case will be turned over to the evening physician. If she is still wheezing after IV magnesium she will require admission to the hospital. Patient was evaluated after her magnesium infusion. Breath sounds remain diminished but overall sound clear. The patient was ambulated and her pulse ox remained in the mid 90s. Despite the fact she did not become hypoxic she reported shortness of breath sensation with this. She also states that despite her long history of asthma that this is the only time that she is scared to go home. The patient has had improvement of symptoms after treatment but there is high likelihood that she will have rebound symptoms and as she is still experiencing discomfort I do feel her safest option would be admission for observation in the hospital. Therefore the case was discussed with the hospitalist who agrees to accept the patient for continued care Discharge Plan Dx/Rx/DC Orders Clinical Impression: Asthma with status asthmaticus in adult, Sinus tachycardia seen on diagnostic cardiac sonographer, URI with cough and congestion, Elevated blood-pressure reading without diagnosis of hypertension Disposition Disposition: Acute Care Hospital [facility] Discharge Date/Time: 01/05/25 03:19
--- NOTE | 2025-01-04 23:21 | CPS ---
[2112] Pt. received x3 Albuterol in ER.
[2025-01-05] VITALS (17 sets, daily range): BP systolic 122–153; BP diastolic 68–113; PULSE 92–128; RESP 18–29; TEMP 36.4–36.9; O2SAT 95–100; BMI 38.8
[2025-01-05] MEDS: Magnesium Sulfate 4gm/100mL 4 GM/100 ML IV.SOLN. IV (00:47)
--- NOTE | 2025-01-05 00:51 | ED.RN ---
VO from Dr. Saba run mag at 300mL/hr.
--- NOTE | 2025-01-05 02:53 | HP.PCM.HOS_ITS ---
HPI - General General Date of Admission: 01/05/25 Date of Service: 01/05/25 Chief Complaint: Dyspnea, cough, wheezing. HPI Narrative The patient is a 39-year-old female with past medical history asthma, anxiety and depression, lupus, chronic headaches, hyperlipidemia who presents to the [facility] ED on 01/05/2025 with history of being ill for the last several weeks with urgent care evaluation placed on Augmentin antibiotic therapy in addition to a 5-day burst of prednisone therapy which she notes she completed 2 weeks previous to current presentation and since then unfortunately has had continuous dyspnea, sore throat, cough without marked sputum, congestion, rhinorrhea, wheezing with some improvement with rescue inhaler but not complete resolution prompting eventual ED reevaluation. In the ED secondary to concerns for asthma exacerbat ion patient was administered breathing treatments, steroids and IV magnesium. In the ED it was noted that patient primarily would go into bronchospasms after coughing fit. Additionally Robitussin DM was ordered with some improvement however patient very anxious to return to home given intermittent coughing fits and concern for recurrent exacerbation. Workup in the ED included T97.8, heart rate 102, BP 131/112, respiratory rate 20, 100% on room air with most recent repeat vitals heart rate 128, BP 140/71, respiratory rate 29, 99% on room air, chest x-ray with no acute cardiopulmonary findings, rapid SARS COVID/influenza/RSV PCR negative. Given patient's concerns about return to home ED physician requested observation evaluation. In the ED patient ministered guaifenesin DM 5 mL, magnesium 4 g IV x 1, prednisone 60 mg p.o. x 1. [facility] Medical History (Updated 01/05/25 @ 03:[address] Aracelis Siddiqui MD) Obesity Anxiety and depression Chronic headaches High cholesterol Lupus Chronic pain Asthma Kidney stones Home Medications ?Medication ?Instructions ?Recorded ?Last Taken ?Type albuterol sulfate 90 mcg/actuation 2 puff inhalation Q 4H PRN PRN 11/28/23 Unknown Rx aerosol inhaler (Ventolin HFA) Wheezing ##1 Allergy/AdvReac Type Severity Reaction Status Date / Time benzonatate (From Tessalon Allergy Mild Swelling Verified 01/04/25 18:17 Francisca) Family History (Updated 01/05/25 @ 03:[address] Aracelis Siddiqui MD) Mother Asthma Diabetes Hypertension Alcoholic cirrhosis of liver Alcohol abuse Father Nephrolithiasis Surgical History (Updated 01/05/25 @ 03:[address] Aracelis Siddiqui MD) H/O section History of tonsillectomy and adenoidectomy History of dilatation and curettage History of lithotripsy S/P arthroscopic surgery of right knee Social History (Updated 01/05/25 @ 03:[address] Aracelis Siddiqui MD) household members: other details: Notes she lives alone except for her younger daughter. Smoking Status: Never smoker alcohol intake: never substance use type: does not use ROS ROS Narrative Admission Review of Systems: CONSTITUTIONAL: No weight loss, fever, chills, + weakness or fatigue. HEENT: Chronic headaches, congestion/rhinorrhea, sore throat. Eyes: No visual loss, blurred vision, double vision or yellow sclerae. Ears, Nose, Throat: No hearing loss, sneezing. SKIN: No rash or itching, lesions, wounds. CARDIOVASCULAR: + Pleuritic chest discomfort, primarily with coughing fits. No palpitations, edema, orthopnea, syncopal events. RESPIRATORY: + Dyspnea, cough without marked sputum, intermittent wheezing. No hemoptysis. GASTROINTESTINAL: No anorexia, nausea, vomiting or diarrhea, abdominal pain, melena, BRBPR. GENITOURINARY: No dysuria, frequency, urgency or retention. NEUROLOGICAL: + Chronic headaches. Dizziness, syncope, paralysis, ataxia, numbness or tingling in the extremities, focal weakness, change in bowel or bladder control, seizure. MUSCULOSKELETAL: No muscle, back pain, joint pain or stiffness. HEMATOLOGIC: No anemia, bleeding or bruising. LYMPHATICS: No enlarged nodes. No history of splenectomy. PSYCHIATRIC: + History of anxiety and depression. ENDOCRINOLOGIC: No reports of sweating, cold or heat intolerance. No polyuria or polydipsia. ALLERGIES: + History of asthma. Vital Signs Vital Signs Vital Signs: 01/04/25 18:14 01/04/25 18:18 01/04/25 18:18 Temperature 97.8 F Temperature Source Temporal Pulse Rate 102 H Respiratory Rate 20 H 32 H Respiratory Effort Respiratory Pattern Blood Pressure 131/112 H Blood Pressure Mean 118 Pulse Ox 100 100 Oxygen Delivery Method Room Air Room Air Room Air 01/04/25 20:14 01/04/25 20:58 01/04/25 21:01 Temperature Temperature Source Pulse Rate 107 H Respiratory Rate 17 Respiratory Effort Labored Respiratory Pattern Blood Pressure 164/85 H Blood Pressure Mean 111 Pulse Ox 99 99 Oxygen Delivery Method Room Air Room Air Room Air 01/04/25 21:12 01/04/25 22:00 01/05/25 00:00 Temperature Temperature Source Pulse Rate 129 H 120 H 128 H Respiratory Rate 24 H 20 H 29 H Respiratory Effort Respiratory Pattern Tachypnea Blood Pressure 160/78 H Blood Pressure Mean 105 Pulse Ox 99 99 Oxygen Delivery Method Room Air Room Air 01/05/25 00:54 Temperature Temperature Source Pulse Rate Respiratory Rate Respiratory Effort Respiratory Pattern Blood Pressure 140/71 H Blood Pressure Mean 94 Pulse Ox Oxygen Delivery Method Weight Weight: 222 lb Body Mass Index (BMI) 39.3 Physical Exam Narrative Physical Examination: General: Awake, alert, oriented x 3 and cooperative, seated upright in the ED bed, intermittent coughing fits during evaluation. Skin: Normal color, normal turgor, no icterus, no cyanosis. HEENT: AT/NC, EOMI, PERRLA, mildly dry MM, no carotid bruits or JVD noted. Lungs: Diminished, greater bases, difficult evaluation as frequent coughing fits with deep inspiratory effort, currently no appreciated wheezing. Heart: Mildly tachycardic with regular rhythm; no gallop, rub audible. Abdomen: Soft, obese, NTTP, ND, distant normal BS, no HSM. Extremities: No cyanosis, clubbing, or edema. Neurological: Patient awake, alert, oriented as noted, cognitive function intact; pupils equally reactive to light and accommodation, cranial nerves grossly normal, moving all 4 extremities, no focal deficits, strength moderately to severely globally decreased secondary to acute presentation complaints. Psychiatric: Affect appears fatigued, no acute evidence of depressive or anxiety feelings but does have underlying history. Results Lab / Micro Data Micro: Microbiology 01/04/25 21:02 Mucosa - Nose SARS-CoV-2, Influenza & RSV (PCR) - Final Imaging Radiology Impression Chest X-Ray 01/04/25 18:25 IMPRESSION: NEGATIVE CHEST. Reading Location: [id number] Assessment & Plan Assessment/Plan (1) Asthma exacerbation: PLAN: Plan The patient is a 39-year-old female with past medical history asthma, anxiety and depression, lupus, chronic headaches, hyperlipidemia who presents to the [facility] ED on 01/05/2025 with history of being ill for the last several weeks with urgent care evaluation placed on Augmentin antibiotic therapy in addition to a 5-day burst of prednisone therapy which she notes she completed 2 weeks previous to current presentation and since then unfortunately has had continuous dyspnea, sore throat, cough without marked sputum, congestion, rhinorrhea, wheezing with some improvement with rescue inhaler but not complete resolution prompting eventual ED reevaluation. #1. Acute on Chronic asthma exacerbation suspected secondary to acute viral syndrome although recently was treated for possible bronchitis: Will admit to [facility], continue ATC duonebs, PRN albuterol, IV methylprednisolone, HOB, IS parameters, will obtain sputum cx, full respiratory viral panel, procalcitonin, will hold on immediately abx therapy but low threshold to add if appropriate, given improvement with Robitussin DM in the ED will continue as needed. #2. Elevated BP without hypertensive diagnosis: Patient with notably elevated BP in the ED, possibly secondary to medications and coughing fits, previous issues with blood pressure only during , continue to monitor and add oral regimen if appropriate, as needed IV hydralazine in the interim. #3. Anxiety and depression: Not on chronic regimen, encourage continued outpatient follow-up and evaluation with PCP as previously arranged. #4. Lupus: Noted history, not on any chronic regimen per current list, encourage continued outpatient follow-up with rheumatology as previously arranged. #5. Hyperlipidemia: Not on any regimen per current list, defer to outpatient. #6. Obesity: Weight loss and lifestyle changes encouraged. #7. DVT prophylaxis: Low risk for observation presentation, encourage ambulation as improving Charges/Coding Visit Charges Inpatient E&M: 49876 Init Hosp L2
[2025-01-05] MEDS: 0.9% Normal Saline (1000mL) 1,000 ML 100 ML IV (03:49)
[2025-01-05 04:54] LABS: Bacteria 0 SEEN /hpf (None Seen); Mucous, Urine 0 SEEN /hpf (<or=2+); Squamous Epithelial Cells - UA 0 SEEN /hpf (5-10); White Blood Cells 0 SEEN /hpf (0-5)
[2025-01-05 05:03] LABS: Color, Urine Yellow (Yellow); Glucose, Dipstick Normal (Normal); Ketone-Dipstick 5 mg/dl (Negative); Leukocyte Esterase-Dipstick Negative /ul (Negative); Nitrite-Dipstick Negative (Negative); Occult Blood-Urine Negative /ul (Negative); Protein-Dipstick Negative (Negative); Urine Bilirubin Dipstick Negative (Negative); Urine Clarity Clear (Clear); Urine Urobilinogen Normal (Normal)
[2025-01-05 05:10] LABS: Red Blood Cells-Urine 0 SEEN /hpf (0-5)
[2025-01-05 06:33] LABS: Absolute Lymphocyte Count 0.36 X10^3/uL (0.83-4.51); Absolute Neutrophil Count 9.8 X10^3/uL (2.0-7.7); Basophil# 0.02 X10^3/uL; Basophil% 0.2 % (0-1); Hematocrit 36.2 % (37-47); Hemoglobin 11.5 g/dL (12.0-15.0); Lymphocyte # 0.36 X10^3/ul (0.83-4.51); Lymphocyte % 3.5 % (19-41); Mean Corp Hgb Conc 31.8 g/dL (32-36); Mean Corpuscular Hgb 26.1 pg (27.0-32.0); Mean Corpuscular Volume 82.1 fL (81-99); Mean Platelet Vol. 8.9 fl (6.2-12.0); Monocyte# 0.03 X10^3/uL; Monocyte% 0.3 % (0-10); NRBC Flagged by Analyzer 0 % (0-5); Neutrophil # 9.76 X10^3/uL (2.7-7.7); Neutrophil % 95.5 % (47-70); POSITIVE DIFFERENTIAL YES; Platelet Count 383 K/mm3 (150-450); RBC Distribution Width CV 14.6 % (11.6-14.6); RBC Distribution Width SD 43.1 fl (35.1-43.9); Red Blood Count 4.41 M/mm3 (4.2-5.4); White Blood Count 10.2 K/mm3 (4.4-11.0)
[2025-01-05] MEDS: Acetaminophen 325 MG Tablet 650 MG PO (06:40)
[2025-01-05 07:06] LABS: ALB/GLOB Ratio 0.7 RATIO (0.9-2.4); AST(SGOT) 10 U/L (15-37); Alanine Aminotransfer ALT/SGPT 16 U/L (13-56); Albumin, Serum 3.3 g/dL (3.2-5.0); Alkaline Phosphatase 110 U/L (45-117); Anion Gap 4 (5-15); BUN 8 mg/dL (7-18); BUN/Creat Ratio 12.2 RATIO (10-20); Calcium,Total 8.4 mg/dL (8.5-10.1); Chloride 109 mmol/L (98-107); Creatinine, Serum 0.66 mg/dL (0.55-1.02); EST Glomerular Filtration Rate 106 mL/min (>60); Est Glom Filt Rate - Afr Amer 128 mL/min (>60); Estimated Creatinine Clearance 127.43 ml/min; Globulin 4.7 g/dL (2.2-4.2); Glucose 138 mg/dL (74-106); Potassium 4.4 mmol/L (3.5-5.1); Sodium Level 136 mmol/L (136-145)
[2025-01-05] MEDS: Ipratropium/Albuterol Sulfate 3 ML AMPUL.NEB INHALATION ×4 (07:38→21:00)
--- NOTE | 2025-01-05 07:43 | PN.HOSP_ITS ---
Reason for Visit Reason for Visit: Diagnoses Unspecified asthma with (acute) exacerbation (01/05/25) Objective Data Objective Data Vital Signs: Vital Signs Temp Pulse Resp BP Pulse Ox O2 Del Method 98.3 F 105 H 28 H 122/70 H 96 Room Air 01/05/25 06:29 01/05/25 06:29 01/05/25 06:29 01/05/25 06:29 01/05/25 06:29 01/05/25 06:29 Oxygen Delivery Method Room Air Weight: 219 lb 5.759 oz Body Mass Index (BMI) 38.8 Intake & Output: Intake and Output for Last 24 Hours 01/03/25 01/04/25 01/05/25 23:59 23:59 23:59 Intake Total 400 / 400 Balance 400 / 400 Lab / Micro Data 01/05/25 05:05 01/05/25 05:05 Labs: Laboratory Results - last 24 hr 01/05/25 04:30: Urine Color Yellow, Urine Clarity Clear, Urine pH 6.0, Ur Specific [place] 1.020, Urine Protein Negative, Urine Glucose (UA) Normal, Urine Ketones 5 H, Urine Occult Blood Negative, Urine Nitrite Negative, Urine Bilirubin Negative, Urine Urobilinogen Normal, Ur Leukocyte Esterase Negative, Urine RBC 0 SEEN, Urine WBC 0 SEEN, Ur Squamous Epith Cells 0 SEEN, Urine Bacteria 0 SEEN, Urine Mucus 0 SEEN 01/05/25 05:05: WBC 10.2, RBC 4.41, Hgb 11.5 L, Hct 36.2 L, MCV 82.1, MCH 26.1 L , MCHC 31.8 L, RDW Std Deviation 43.1, RDW Coeff of [place] 14.6, Plt Count 383, MPV 8.9, Immature Gran % (Auto) 0.500, Neut % (Auto) 95.5 H, Lymph % (Auto) 3.5 L, [place] % (Auto) 0.3, Eos % (Auto) 0.0, Baso % (Auto) 0.2, Absolute Neuts (auto) 9.8 H, Absolute Lymphs (auto) 0.36 L, Nucleated RBC % 0, Sodium 136, Potassium 4.4, Chloride 109 H, Carbon Dioxide 23.0, Anion Gap 4 L, BUN 8, Creatinine 0.66, Estim Creat Clear Calc 127.43, Est GFR (MDRD) Af Amer 128, Est GFR (MDRD) Non-Af 106, BUN/Creatinine Ratio 12.2, Glucose 138 H, Calcium 8.4 L, Total Bilirubin 0.40, AST 10 L, ALT 16, Alkaline Phosphatase 110, Total Protein 8.0, Albumin 3.3, Globulin 4.7 H, Albumin/Globulin Ratio 0.7 L Micro: Microbiology 01/04/25 21:02 Mucosa - Nose SARS-CoV-2, Influenza & RSV (PCR) - Final Radiography Diagnostic Testing: Radiology Impression Chest X-Ray 01/04/25 18:25 IMPRESSION: NEGATIVE CHEST. Reading Location: [facility] Physical Exam Narrative Seen and examined. Patient states she is having cough, wheezing and shortness of breath asthma-like symptoms for last 2 months. No fever. Having severe bouts of coughing per oxygen and not able to take deep breath or converse. Physical exam General: Alert, Oriented x3, Cooperative, in respiratory distress. Morbid obese BMI 38.9 kg/m? HEENT: Atraumatic, PERRLA, EOMI, Normocephalic Oral: No Gingival or Mucosal Lesions/ Ulcerations Neck: Supple, No JVD, Negative Carotid Bruits Chest wall/Lungs: Air entry diminished in all lung ríos with severe wheezing. Severe dry cough. Cardiovascular: Sinus tachycardia, Normal S1, Normal S2, No M/G/R Abdomen: Bowel Sounds Present, Soft, Non Tender, Non-Distended : No dysuria. No renal angle tenderness. No suprapubic tenderness. Extremities: No edema, Capillary Refill Less than 3 Seconds Skin: No rashes, No breakdown Musculoskeletal: No Tenderness to Palpation of Joints or Extremities Neurological: Cranial nerves II-XII grossly intact, DTR 2+/4. No acute focal neurological deficit. Psych/Mental Status: Flat affect Assessment & Plan Assessment/Plan (1) Asthma exacerbation: PLAN: Plan The patient is a 39-year-old female was admitted with persistent dyspnea, cough since November 2024. Patient went to urgent care and was given antibiotics Augmentin and prednisone, 5 days burst therapy and a steroid which she completed about 2 weeks ago with no improvement in symptoms. #1. Acute on Chronic asthma exacerbation suspected secondary to acute viral syndrome although recently was treated for possible bronchitis: Patient is admitted on MedSurg floor. She is still tachypneic and tachycardic but no hypoxia. Triple PCR for SARS-CoV-2, flu and RSV are negative. Patient is being managed on scheduled bronchodilator, IV Solu-Medrol, Mucinex?DM, incentive spirometry and Pep. Started on codeine to suppress cough. Discussed with pharmacy and does not have supply of Robitussin AC. #2. Elevated BP without hypertensive diagnosis: BP was elevated. Currently normal. #3. Anxiety and depression: Follow with PCP. #4. Hyperlipidemia: Not on any regimen per current list, defer to outpatient. #6. Obesity: Weight loss and lifestyle changes encouraged. #7. DVT prophylaxis: Low risk for observation presentation, encourage ambulation as improving Microbiology Past 72 Hours 01/04/25 21:02 Mucosa - Nose SARS-CoV-2, Influenza & RSV (PCR) - Final Laboratory Results 01/05/25 04:30: Urine Color Yellow, Urine Clarity Clear, Urine pH 6.0, Ur Specific [place] 1.020, Urine Protein Negative, Urine Glucose (UA) Normal, Urine Ketones 5 H, Urine Occult Blood Negative, Urine Nitrite Negative, Urine Bilirubin Negative, Urine Urobilinogen Normal, Ur Leukocyte Esterase Negative, Urine RBC 0 SEEN, Urine WBC 0 SEEN, Ur Squamous Epith Cells 0 SEEN, Urine Bacteria 0 SEEN, Urine Mucus 0 SEEN 01/05/25 05:05: WBC 10.2, RBC 4.41, Hgb 11.5 L, Hct 36.2 L, MCV 82.1, MCH 26.1 L , MCHC 31.8 L, RDW Std Deviation 43.1, RDW Coeff of [place] 14.6, Plt Count 383, MPV 8.9, Immature Gran % (Auto) 0.500, Neut % (Auto) 95.5 H, Lymph % (Auto) 3.5 L, [place] % (Auto) 0.3, Eos % (Auto) 0.0, Baso % (Auto) 0.2, Absolute Neuts (auto) 9.8 H, Absolute Lymphs (auto) 0.36 L, Nucleated RBC % 0, Sodium 136, Potassium 4.4, Chloride 109 H, Carbon Dioxide 23.0, Anion Gap 4 L, BUN 8, Creatinine 0.66, Estim Creat Clear Calc 127.43, Est GFR (MDRD) Af Amer 128, Est GFR (MDRD) Non-Af 106, BUN/Creatinine Ratio 12.2, Glucose 138 H, Calcium 8.4 L, Total Bilirubin 0.40, AST 10 L, ALT 16, Alkaline Phosphatase 110, Total Protein 8.0, Albumin 3.3, Globulin 4.7 H, Albumin/Globulin Ratio 0.7 L, Procalcitonin Pending Charges/Coding Visit Charges Inpatient E&M: 64758 Subs Hosp L2
[2025-01-05 08:26] LABS: Procalcitonin 0.06 ng/mL (0.00-0.09)
[2025-01-05] MEDS: Acetaminophen/Codeine #3 Tablet 1 TABLET PO (18:45)
[2025-01-05] MEDS: guaiFENesin/D-Methorphan TAB.SR.12H 2 TABLET PO (20:00)
[2025-01-05] MEDS: MELATONIN 10 MG TABLET PO (20:00)
[2025-01-05] MEDS: Ibuprofen 600 MG Tablet PO (20:14)
[2025-01-06] VITALS (11 sets, daily range): BP systolic 95–131; BP diastolic 52–86; PULSE 90–116; RESP 18–21; TEMP 36.3–36.7; O2SAT 95–99
[2025-01-06] MEDS: Albuterol 2.5 MG/3 ML VIAL.NEB. INHALATION (00:10)
[2025-01-06] MEDS: 0.9% Saline Lock 10 ML Syringe IV ×3 (06:18→20:55)
[2025-01-06] MEDS: Ipratropium/Albuterol Sulfate 3 ML AMPUL.NEB INHALATION ×4 (07:15→19:33)
[2025-01-06] MEDS: guaiFENesin/D-Methorphan TAB.SR.12H 2 TABLET PO ×2 (09:39→20:55)
[2025-01-06] MEDS: Acetaminophen/Codeine #3 Tablet 1 TABLET PO ×2 (09:39→16:54)
--- NOTE | 2025-01-06 12:04 | PN.HOSP_ITS ---
Reason for Visit Reason for Visit: Diagnoses Unspecified asthma with (acute) exacerbation (01/05/25) Objective Data Objective Data Vital Signs: Vital Signs Temp Pulse Resp BP Pulse Ox O2 Del Method 98.0 F 92 18 124/65 H 97 Room Air 01/06/25 09:26 01/06/25 10:17 01/06/25 10:17 01/06/25 09:26 01/06/25 09:26 01/06/25 09:29 Oxygen Delivery Method Room Air Weight: 219 lb 5.759 oz Body Mass Index (BMI) 38.8 Intake & Output: Intake and Output for Last 24 Hours 01/04/25 01/05/25 01/06/25 23:59 23:59 23:59 Intake Total 1400 / 1400 Output Total 900 / 900 Balance 1400 / 1400 -900 / -900 Lab / Micro Data 01/05/25 05:05 01/05/25 05:05 Micro: Microbiology 01/05/25 04:30 Mucosa - Nasopharyngeal Respiratory Panel (PCR) - Final 01/04/25 21:02 Mucosa - Nose SARS-CoV-2, Influenza & RSV (PCR) - Final Physical Exam Narrative Seen and examined. Patient states she is having cough, wheezing and shortness of breath asthma-like symptoms for last 2 months. No fever. Having severe bouts of coughing per oxygen and not able to take deep breath or converse. Physical exam General: Alert, Oriented x3, Cooperative, in respiratory distress. Morbid obese BMI 38.9 kg/m? HEENT: Atraumatic, PERRLA, EOMI, Normocephalic Oral: No Gingival or Mucosal Lesions/ Ulcerations Neck: Supple, No JVD, Negative Carotid Bruits Chest wall/Lungs: Air entry diminished in all lung ríos with severe wheezing. Severe dry cough. Cardiovascular: Sinus tachycardia, Normal S1, Normal S2, No M/G/R Abdomen: Bowel Sounds Present, Soft, Non Tender, Non-Distended : No dysuria. No renal angle tenderness. No suprapubic tenderness. Extremities: No edema, Capillary Refill Less than 3 Seconds Skin: No rashes, No breakdown Musculoskeletal: No Tenderness to Palpation of Joints or Extremities Neurological: Cranial nerves II-XII grossly intact, DTR 2+/4. No acute focal neurological deficit. Psych/Mental Status: Flat affect Assessment & Plan Assessment/Plan (1) Asthma exacerbation: PLAN: Plan The patient is a 39-year-old female was admitted with persistent dyspnea, cough since November 2024. Patient went to urgent care and was given antibiotics Augmentin and prednisone, 5 days burst therapy and a steroid which she completed about 2 weeks ago with no improvement in symptoms. #1. Acute on Chronic asthma exacerbation suspected secondary to acute viral syndrome although recently was treated for possible bronchitis: Patient is admitted on MedSur floor. She is still tachypneic and tachycardic but no hypoxia. Triple PCR for SARS-CoV-2, flu and RSV are negative. Patient is being managed on scheduled bronchodilator, IV Solu-Medrol, Mucinex?DM, incentive spirometry and Pep. Started on codeine to suppress cough. Discussed with pharmacy and does not have supply of Robitussin AC. #2. Elevated BP without hypertensive diagnosis: BP was elevated. Currently normal. #3. Anxiety and depression: Follow with PCP. #4. Hyperlipidemia: Not on any regimen per current list, defer to outpatient. #6. Obesity: Weight loss and lifestyle changes encouraged. #7. DVT prophylaxis: Low risk for observation presentation, encourage ambulation as improving Microbiology Past 72 Hours 01/04/25 21:02 Mucosa - Nose SARS-CoV-2, Influenza & RSV (PCR) - Final Laboratory Results 01/05/25 04:30: Urine Color Yellow, Urine Clarity Clear, Urine pH 6.0, Ur Specific [place] 1.020, Urine Protein Negative, Urine Glucose (UA) Normal, Urine Ketones 5 H, Urine Occult Blood Negative, Urine Nitrite Negative, Urine Bilirubin Negative, Urine Urobilinogen Normal, Ur Leukocyte Esterase Negative, Urine RBC 0 SEEN, Urine WBC 0 SEEN, Ur Squamous Epith Cells 0 SEEN, Urine Bacteria 0 SEEN, Urine Mucus 0 SEEN 01/05/25 05:05: WBC 10.2, RBC 4.41, Hgb 11.5 L, Hct 36.2 L, MCV 82.1, MCH 26.1 L , MCHC 31.8 L, RDW Std Deviation 43.1, RDW Coeff of [place] 14.6, Plt Count 383, MPV 8.9, Immature Gran % (Auto) 0.500, Neut % (Auto) 95.5 H, Lymph % (Auto) 3.5 L, [place] % (Auto) 0.3, Eos % (Auto) 0.0, Baso % (Auto) 0.2, Absolute Neuts (auto) 9.8 H, Absolute Lymphs (auto) 0.36 L, Nucleated RBC % 0, Sodium 136, Potassium 4.4, Chloride 109 H, Carbon Dioxide 23.0, Anion Gap 4 L, BUN 8, Creatinine 0.66, Estim Creat Clear Calc 127.43, Est GFR (MDRD) Af Amer 128, Est GFR (MDRD) Non-Af 106, BUN/Creatinine Ratio 12.2, Glucose 138 H, Calcium 8.4 L, Total Bilirubin 0.40, AST 10 L, ALT 16, Alkaline Phosphatase 110, Total Protein 8.0, Albumin 3.3, Globulin 4.7 H, Albumin/Globulin Ratio 0.7 L, Procalcitonin Pending
[2025-01-06] MEDS: MELATONIN 10 MG TABLET PO (22:29)
[2025-01-06] MEDS: Ibuprofen 600 MG Tablet PO (22:29)
[2025-01-07] VITALS (9 sets, daily range): BP systolic 125–154; BP diastolic 66–110; PULSE 77–100; RESP 16–20; TEMP 36.3–36.7; O2SAT 94–98
[2025-01-07] MEDS: 0.9% Saline Lock 10 ML Syringe IV ×2 (05:50→23:54)
[2025-01-07] MEDS: Ipratropium/Albuterol Sulfate 3 ML AMPUL.NEB INHALATION ×4 (07:02→20:02)
[2025-01-07] MEDS: guaiFENesin/D-Methorphan TAB.SR.12H 2 TABLET PO ×2 (08:56→23:53)
[2025-01-07] MEDS: Acetaminophen/Codeine #3 Tablet 1 TABLET PO (08:56)
[2025-01-07] MEDS: Senna/Docusate Sodium 1 Tablet 2 TABLET PO (08:56)
--- NOTE | 2025-01-07 11:53 | CASEMGMT ---
Pt does not qualify for home oxygen at this time.
--- NOTE | 2025-01-07 13:06 | PCM.PN.HOSP ---
Subjective Subjective Doing well, no issues overnight. Maintaining her oxygen saturations on room air Objective Data Objective Data Vital Signs: Vital Signs Temp Pulse Resp BP Pulse Ox O2 Del Method 97.3 F L 79 17 152/88 H 98 Room Air 01/07/25 08:43 01/07/25 11:04 01/07/25 11:04 01/07/25 08:43 01/07/25 08:43 01/07/25 08:47 Oxygen Delivery Method Room Air Weight: 219 lb 5.759 oz Body Mass Index (BMI) 38.8 Intake & Output: Intake and Output for Last 24 Hours 01/06/25 01/07/25 01/08/25 03:59 03:59 03:59 Intake Total 1300 / 1300 Output Total 900 / 900 Balance 400 / 400 Lab / Micro Data 01/05/25 05:05 01/05/25 05:05 Micro: Microbiology 01/05/25 04:30 Mucosa - Nasopharyngeal Respiratory Panel (PCR) - Final 01/04/25 21:02 Mucosa - Nose SARS-CoV-2, Influenza & RSV (PCR) - Final Physical Exam Narrative General: Alert, Oriented x3, Cooperative, No apparent distress HEENT: Atraumatic, PERRLA, EOMI, Normocephalic Oral: Moist Mucosa Neck: Supple, No JVD Lungs: Diminished, Normal air movement, No rhonchi, No wheeze, No rales Cardiovascular: Regular rate, Regular Rhythm, Normal S1, Normal S2, No murmurs Abdomen: Soft, Non Tender, Non-Distended, No Hepato-splenomegaly Extremities: No edema, Capillary Refill Less than 3 Seconds Skin: No rashes, No breakdown Musculoskeletal: No Tenderness to Palpation of Joints or Extremities Neurological: No focal neurological deficits, Motor Exam 5/5 strength throughout, Sensory exam intact to light touch and pain Psych/Mental Status: Normal Affect, Appropriate Assessment & Plan Assessment/Plan (1) Asthma exacerbation: PLAN: Plan #1. Acute on Chronic asthma exacerbation suspected secondary to acute viral syndrome although recently was treated for possible bronchitis: Patient is admitted on MedSurg floor. She is still tachypneic and tachycardic but no hypoxia. Triple PCR for SARS-CoV-2, flu and RSV are negative. Patient is being managed on scheduled bronchodilator, IV Solu-Medrol, Mucinex?DM, incentive spirometry and Pep. Started on codeine to suppress cough. Discussed with pharmacy and does not have supply of Robitussin AC. 01/06: Symptoms of cough wheezing and shortness of breath better. Continue above treatment. Continue incentive spirometry and PEP 01/07/2025: Will transition to p.o. prednisone, she did not have an ambulatory pulse ox today which did not demonstrate a need for any oxygen however she does not want to go home due to anxiety #2. Elevated BP without hypertensive diagnosis: BP was elevated. Currently normal. #3. Anxiety and depression: Follow with PCP. #4. Hyperlipidemia: Not on any regimen per current list, defer to outpatient. DVT: Ambulation Charges/Coding Visit Charges Inpatient E&M: 29261 Subs Hosp L2
[2025-01-08 06:42] VITALS: BP 146/95; PULSE 89; RESP 24; TEMP 36.3; O2SAT 98
[2025-01-08] MEDS: Ipratropium/Albuterol Sulfate 3 ML AMPUL.NEB INHALATION ×2 (07:03→10:28)
[2025-01-08 07:04] VITALS: PULSE 95; RESP 16; O2SAT 98
[2025-01-08 07:53] VITALS: BP 139/86; PULSE 99; RESP 18; TEMP 36.6; O2SAT 96
[2025-01-08] MEDS: predniSONE 20 MG Tablet 40 MG PO (07:56)
[2025-01-08] MEDS: Acetaminophen/Codeine #3 Tablet 1 TABLET PO (08:02)
[2025-01-08] MEDS: guaiFENesin/D-Methorphan TAB.SR.12H 2 TABLET PO (10:13)
[2025-01-08] MEDS: levoFLOXacin 750 MG Tablet PO (10:13)
[2025-01-08] MEDS: Senna/Docusate Sodium 1 Tablet 2 TABLET PO (10:25)
[2025-01-08 10:29] VITALS: PULSE 96; RESP 16
--- NOTE | 2025-01-08 12:20 | CASEMGMT ---
VICKIE ZEE Assessment: Face to Face with pt for initial transition planning/care coordination assessment. VICKIE ZEE introduced self and role at [facility], pt voices understanding and consents to assessment. Pt is A&O x4 and answers all questions appropriately at this time. Pt sitting up in bed in no distress with mother at bedside. Pt agreeable to assessment with mother present. Care providers, pharmacy, and demographics verified/updated. Admitting Dx: asthma exac Strata Score: 1 PCP:Matthew Specialists:Denies, pt would like set up with Dr. Haja bates at [facility] Preferred Pharmacy: [facility] Retail Insurance: [employer] [place] Prescription Benefit: yes LNOK: Leah Connors, mother Living Arrangements: Pt lives with 7 year old dtr in a mobile home with 4 steps to enter with a rail. Pt states her mother is caring for her dtr while she is in the hospital. Pt reports being I in ADLs/IADLs and denies concerns at home. Transportation: Pt drives self and denies concerns with transportation. DME:Denies HHC/SNF: Denies hx of Pt states no concerns with going home at time of dc. Pt states no further concerns/needs. CM to follow. Advised pt to ask CM if any further questions/concerns/needs arise, voices understanding. Pt Goal: Home Plan: Home Ronda [place] CM
--- NOTE | 2025-01-08 12:36 | EX.PCM.CONCC ---
Assessment & Plan Assessment/Plan (1) Asthma exacerbation: PLAN: Plan RECOMMENDATIONS: 1. Continue scheduled bronchodilators. 2. Continue prednisone 40 mg daily, with plans to complete a 5-day burst at discharge. 3. Start Symbicort 160/4.5 at discharge. 4. Perform walking oximetry study prior to consideration for discharge home. 5. The patient is scheduled to follow-up in the pulmonary medicine office on January 22 at 1045 6. Once the patient is off of steroids, recommend proceeding with PFTs, office-based nitric oxide testing, CBC with differential to evaluate for peripheral eosinophilia, IgE, RAST profile and ANCA. IMPRESSIONS: 1. Asthma with exacerbation I strongly suspect that the patient's presenting symptoms are likely secondary to inadequately treated asthma at baseline. She is not currently on a maintenance inhaler and has been using her rescue inhaler frequently. There does not appear to be an occult infectious process contributing to her symptomology. Therefore, I am okay with discontinuing antimicrobials. It is reasonable to continue scheduled bronchodilators, with plans to complete a 5-day burst of prednisone 40 mg daily, at discharge. In addition, I would asked that the patient be started empirically on Symbicort at discharge, while awaiting outpatient pulmonary follow-up. Once she has been weaned from her steroids, we will proceed with office-based nitric oxide testing along with PFTs and asthma based laboratory workup. She otherwise appears clinically stable for discharge home. 2. History of anxiety/hypertension/hyperlipidemia Complicates care, management, recovery and prognosis. Defer outpatient management to PCP. This note was generated with [employer] dictation software. It may contain incorrect words, spelling, and punctuation that were not noted in checking the note before signing. HPI Consult Data Date of Consult: 01/08/25 HPI Narrative Reason for Consultation: Asthma exacerbation HPI Narrative: The patient is a 39-year-old female, with a history as outlined below, who presented to the emergency department on January 05 with shortness of breath and wheezing. The patient reported a longstanding history of asthma, initially diagnosed in her 20s. She has never been followed by a brass polisher. She did report that she underwent allergy testing through the local ENT office and for a period of time received allergy immunotherapy. At the present time, the patient only utilizes albuterol on an as-needed basis. She does report frequent daily use of her rescue inhaler. She is a non-smoker. She does not currently keep any animals pets in her home environment. On presentation to the emergency department, the patient was documented to be afebrile and hemodynamically stable. She was maintaining appropriate oxygen saturations on room air. Laboratory evaluation was notable for a white blood cell count of 10,000. Chemistry profile was unremarkable. Urine analysis was unremarkable. Chest x-ray demonstrated no acute cardiopulmonary process. COVID, influenza and RSV PCR's were negative. Respiratory viral panel was negative. The patient was subsequently admitted to the hospital and placed on scheduled bronchodilators and steroids. [facility] Medical History Obesity Anxiety and depression Chronic headaches High cholesterol Lupus Chronic pain Asthma Kidney stones Home Medications ?Medication ?Instructions ?Recorded ?Last Taken ?Type albuterol sulfate 90 mcg/actuation 2 puff inhalation Q4H PRN PRN 11/28/23 Unknown Rx aerosol inhaler (Ventolin HFA) Wheezing ##1 budesonide-formoterol HFA 160 1 inh inhalation BID #10.2 grams 01/08/25 Unknown Rx mcg-4.5 mcg/actuation aerosol inhaler (Symbicort) levofloxacin 750 mg tablet 750 mg PO DAILY 7 days #7 tabs 01/08/25 Unknown Rx prednisone 20 mg tablet 40 mg (2 x 20 mg) PO BREAKFAST 5 01/08/25 Unknown Rx days #10 tabs Allergy/AdvReac Type Severity Reaction Status Date / Time benzonatate (From Tessalon Allergy Mild Swelling Verified 01/04/25 18:17 Francisca) Family History (Updated 01/05/25 @ 03:[address] Aracelis Siddiqui MD) Mother Asthma Diabetes Hypertension Alcoholic cirrhosis of liver Alcohol abuse Father Nephrolithiasis Surgical History H/O section History of tonsillectomy and adenoidectomy History of dilatation and curettage History of lithotripsy S/P arthroscopic surgery of right knee Social History (Updated 01/05/25 @ 03:[address] Aracelis Siddiqui MD) household members: other details: Notes she lives alone except for her younger daughter. Smoking Status: Never smoker alcohol intake: never substance use type: does not use ROS ROS Narrative 10 systems were reviewed with pertinent positives as noted in the HPI above. Physical Exam Const alert, oriented x3 and no apparent distress Constitutional Narrative: Mother is present at the bedside. General Appearance: cooperative HEENT normocephalic and head/scalp atraumatic Eyes PERRL, EOMs intact bilaterally and conjunctivae normal Neck supple General: trachea midline Chest inspection of chest normal Resp normal respiratory effort and no use of accessory muscles Effort and Inspection: actively coughing Auscultation: diminished lung sounds; Negative for rales, rhonchi or wheezes Cardio regular rate and regular rhythm GI normal to inspection, nondistended, normoactive bowel sounds Extremity no clubbing, cyanosis or edema Skin no rashes or lesions noted Neuro CN's II-XII intact bilaterally, moves all extremities and no focal motor deficits Psych cooperative and affect normal Lab / Micro Data 01/05/25 05:05 01/05/25 05:05 Charges/Coding Visit Charges Inpatient E&M: 07801 Init Hosp L3
--- NOTE | 2025-01-08 12:53 | DCINST_ITS ---
Discharge Instructions Diet Discharge Diet: No restrictions DC O2, CPAP, BIPAP needs Home O2 Discharge instructions: No Dressing / Incision Call your doctor if you observe: Fever of 101 or Higher, Shortness of breath, Dizziness, Fainting spells, Swelling in the ankles, Chest pain and Increased palpitations (irregular heartbeat) Follow Up Care Test Results: Test results from this visit will be discussed in further detail at your follow- up appointment, if applicable. Discharge Plan Admission Admit Date/Time: 01/07/25 12:04 Attending Provider: Omid Mon Primary Care Provider: Jin Castro Consulting Providers: Aracelis Siddiqui; Manuel Chang; Noman Garcia; Pawel Leslie; Howard Byrd; Micheal Smyth; Bobby Encarnacion; Jose Gomez; Alli Perez; Ana Cruz; Angel aSez; Camden Haile; Moiz Rivera; Josefina Santana; Yaw Ferrera; Dulce Steiner; Isac Gonzalez; Arjun Molina; Phani Murillo; [place]; Vernon Dallas; Jocelyne Prabhakar; Dawit Parks; Ambrose Thomas; Ervin Olivo Discharge Orders/Prescriptions Prescriptions: New prednisone 20 mg Tablet 40 mg PO BREAKFAST 5 Days Qty: 10 0RF levofloxacin 750 mg Tablet 750 mg PO DAILY 7 Days Qty: 7 0RF budesonide-formoterol [Symbicort] 160-4.5 mcg/actuation HFA aerosol inhaler 1 inh inhalation BID Qty: 10.2 0RF Continued albuterol sulfate [Ventolin HFA] 90 mcg/actuation HFA aerosol inhaler 2 puff inhalation Q4H PRN PRN (Reason: Wheezing) Qty: 1 0RF Disposition Discharge Orders: Discharge Patient (Routine); Ordered 01/08/25 Ordered By: Dr. Omid Mon
[2025-01-08 13:09] VITALS: O2SAT 96; O2SAT 99
[2025-01-08 13:20] VITALS: BP 146/90; PULSE 110; RESP 18; TEMP 36.6; O2SAT 96
--- NOTE | 2025-01-08 16:34 | PCM.DC.SUM ---
Providers Date of Admission: 01/07/25 Primary Care Physician: Dr. 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 Routine Consulting Provider: Intensivists/Pulmonary Med Reason for Consult: non-hypoxic asthma exacerbation EMERGENT Consult: No MD Notified: Yes Date Notified: 01/08/25 Time Notified: 08:56 Method of Notification: Verbal Reason For Visit: ASTHMA EXACERBATION Diagnosis Discharge Diagnosis (1) Asthma exacerbation: Status: Acute Code(s): J45.901 - Unspecified asthma with (acute) exacerbation Medications at Discharge Home Medications albuterol sulfate 90 mcg/actuation aerosol inhaler (Ventolin HFA) 2 puff inhalation Q4H PRN PRN Wheezing ##1 11/28/23 budesonide-formoterol HFA 160 mcg-4.5 mcg/actuation aerosol inhaler (Symbicort) 1 inh inhalation BID #10.2 grams 01/08/25 levofloxacin 750 mg tablet 750 mg PO DAILY 7 days #7 tabs 01/08/25 prednisone 20 mg tablet 40 mg (2 x 20 mg) PO BREAKFAST 5 days #10 tabs 01/08/25 Hospital Course Operations None Procedures None Summary of Care Provided Minutes Spent on Discharge: 40 Hospital Course: Per HPI: The patient is a 39-year-old female with past medical history asthma, anxiety and depression, lupus, chronic headaches, hyperlipidemia who presents to the [facility] ED on 01/05/2025 with history of being ill for the last several weeks with urgent care evaluation placed on Augmentin antibiotic therapy in addition to a 5-day burst of prednisone therapy which she notes she completed 2 weeks previous to current presentation and since then unfortunately has had continuous dyspnea, sore throat, cough without marked sputum, congestion, rhinorrhea, wheezing with some improvement with rescue inhaler but not complete resolution prompting eventual ED reevaluation. In the ED secondary to concerns for asthma exacerbation patient was administered breathing treatments, steroids and IV magnesium. In the ED it was noted that patient primarily would go into bronchospasms after coughing fit. Additionally Robitussin DM was ordered with some improvement however patient very anxious to return to home given intermittent coughing fits and concern for recurrent exacerbation. Workup in the ED included T97.8, heart rate 102, BP 131/112, respiratory rate 20, 100% on room air with most recent repeat vitals heart rate 128, BP 140/71, respiratory rate 29, 99% on room air, chest x-ray with no acute cardiopulmonary findings, rapid SARS COVID/influenza/RSV PCR negative. Given patient's concerns about return to home ED physician requested observation evaluation. In the ED patient ministered guaifenesin DM 5 mL, magnesium 4 g IV x 1, prednisone 60 mg p.o. x 1. Hospital Course: #1. Acute on Chronic asthma exacerbation suspected secondary to acute viral syndrome although recently was treated for possible bronchitis: Patient is admitted on [facility] floor. She is still tachypneic and tachycardic but no hypoxia. Triple PCR for SARS-CoV-2, flu and RSV are negative. Patient is being managed on scheduled bronchodilator, IV Solu-Medrol, Mucinex?DM, incentive spirometry and Pep. Started on codeine to suppress cough. Discussed with pharmacy and does not have supply of Robitussin AC. 01/06: Symptoms of cough wheezing and shortness of breath better. Continue above treatment. Continue incentive spirometry and PEP 01/07/2025: Will transition to p.o. prednisone, she did not have an ambulatory pulse ox today which did not demonstrate a need for any oxygen however she does not want to go home due to anxiety 01/08/2025: She is okay with discharge today. I did consult pulmonology who also recommended Symbicort on discharge with outpatient follow-up in their office in 2 weeks. She has never seen a design transferrer and she has never had pulmonary function testing and she has had allergy testing but never followed up for allergy medications and her mother states that she also has a history of lupus but she does not follow-up with rheumatology because she did not like the medications they put her on so we had extensive discussions on following up with physicians and that she would have to trial multiple medications before finding medications that could make a difference in her health care. Will continue with a steroid burst while she is on the Symbicort and she is also been complaining of some sinus pressure so we will do another round of antibiotics. Discussed with her the plan for discharge today she expressed understanding of the risks and benefits of going home and wants to go home today. #2. Elevated BP without hypertensive diagnosis: BP was elevated. Currently normal. #3. Anxiety and depression: Follow with PCP. #4. Hyperlipidemia: Not on any regimen per current list, defer to outpatient. Physical Exam Narrative General: Alert, Oriented x3, Cooperative, No apparent distress HEENT: Atraumatic, PERRLA, EOMI, Normocephalic Oral: Moist Mucosa Neck: Supple, No JVD Lungs: Diminished, Normal air movement, No rhonchi, No wheeze, No rales Cardiovascular: Regular rate, Regular Rhythm, Normal S1, Normal S2, No murmurs Abdomen: Soft, Non Tender, Non-Distended, No Hepato-splenomegaly Extremities: No edema, Capillary Refill Less than 3 Seconds Skin: No rashes, No breakdown Musculoskeletal: No Tenderness to Palpation of Joints or Extremities Neurological: No focal neurological deficits, Motor Exam 5/5 strength throughout, Sensory exam intact to light touch and pain Psych/Mental Status: Anxious and tearful Weight / BMI Weight Weight: 219 lb 5.759 oz Body Mass Index (BMI) 38.8 ABG / Lab / Microbiology Data 01/05/25 05:05 01/05/25 05:05 Microbiology: Microbiology 01/05/25 04:30 Mucosa - Nasopharyngeal Respiratory Panel (PCR) - Final 01/04/25 21:02 Mucosa - Nose SARS-CoV-2, Influenza & RSV (PCR) - Final D/C Instructions Discharge Diet: No restrictions Call your doctor if you observe: Fever of 101 or Higher, Shortness of breath, Dizziness, Fainting spells, Swelling in the ankles, Chest pain and Increased palpitations (irregular heartbeat) DC O2, CPAP, BIPAP Needs Home O2 Discharge instructions: No Meaningful Use Info Meaningful Use Meaningful Use Diagnoses (Choose all that apply): None applicable Ischemic Stroke Statin Dosing Therapy Reference: STATIN DOSE THERAPY REFERENCE: * Patients > 75 years receive moderate or high dose statin therapy. * Patients 75 years or YOUNGER should receive HIGH intensity statin dose unless contraindicated. You will be required to document reason for non-treatment if statin daily dose does not meet guidelines. HIGH DOSE STATIN THERAPY DAILY Atorvastatin > than or = to 40 mg Rosuvastatin > than or = to 20 mg Amlodipine + Atorvastatin > than or = to 2.5/40 mg Ezetimibe + Simvastatin 10/80 mg Simvastatin 80mg Discharge Plan Admission Admit Date/Time: 01/07/25 12:04 Primary Reason for Your Visit: ASTHMA EXACERBATION Attending Provider: Omid Mon Primary Care Provider: Jin Castro Consulting Providers: Aracelis Siddiqui; Manuel Chang; Noman Garcia; Pawel Leslie; Howard Byrd; Micheal Smyth; Bobby Encarnacion; Jose Gomez; Alli Perez; Ana Cruz; Angel Saez; Camden Haile; Moiz Rivera; Josefina Santana; Yaw Ferrera; Dulce Steiner; Isac Gonzalez; Arjun Molina; Phani Smith; [place]; Vernon Dallas; Jocelyne Prabhakar; Dawit Parks; Ambrose Thomas; Ervin Olivo Discharge Orders/Prescriptions Prescriptions: New prednisone 20 mg Tablet 40 mg PO BREAKFAST 5 Days Qty: 10 0RF levofloxacin 750 mg Tablet 750 mg PO DAILY 7 Days Qty: 7 0RF budesonide-formoterol [Symbicort] 160-4.5 mcg/actuation HFA aerosol inhaler 1 inh inhalation BID Qty: 10.2 0RF Continued albuterol sulfate [Ventolin HFA] 90 mcg/actuation HFA aerosol inhaler 2 puff inhalation Q4H PRN PRN (Reason: Wheezing) Qty: 1 0RF Referrals / Follow Up: Micheal Smyth DO [Med Staff - Active Staff] - 01/22/25 10:45 am Jin Castro MD [Primary Care Provider] - Within 1 Week Disposition Disposition (needs filled in before D/C Order can be placed): Home, Self Care Charges/Coding Visit Charges Inpatient E&M: 20376 Disch Hosp >30min
== END 2025-01-08 14:57 | disposition home or self-care (01) | DRG 203 ==
LOC: ED 01-05 02:45 → MS3 01-05 02:54
PROVIDERS: Admitting Provider Family Medicine; Emergency Provider Emergency Medicine; PCP Family Medicine; Referring Provider Family Medicine; Visit Provider Internal Medicine
DX: J45.901 Unspecified asthma with (acute) exacerbation (principal); E66.9 Obesity, unspecified; M32.9 Systemic lupus erythematosus, unspecified; F32.A Depression, unspecified; E78.00 Pure hypercholesterolemia, unspecified; F41.9 Anxiety disorder, unspecified; R03.0 Elevated blood-pressure reading, without diagnosis of hypertension; Z68.38 Body mass index [BMI] 38.0-38.9, adult
CPT/HCPCS: 36415; 71045; 80053; 81001; 84145; 85025; 87631; 87633; 94640; 94668; 94760; 99285; A4216; J3475

== ENCOUNTER → 2025-03-26 | Outpatient (CLI) | payer BC, SELFPAY ==
[2025-03-26 09:12] LABS: Absolute Lymphocyte Count 1.62 X10^3/uL (0.83-4.51); Absolute Neutrophil Count 5.2 X10^3/uL (2.0-7.7); Basophil# 0.03 X10^3/uL; Basophil% 0.4 % (0-1); Eosinophil# 0.09 X10^3/uL; Eosinophils% 1.2 % (0-5); Hematocrit 40.3 % (37-47); Hemoglobin 12.8 g/dL (12.0-15.0); Lymphocyte # 1.62 X10^3/ul (0.83-4.51); Lymphocyte % 22.1 % (19-41); Mean Corp Hgb Conc 31.8 g/dL (32-36); Mean Corpuscular Hgb 26.3 pg (27.0-32.0); Mean Corpuscular Volume 82.8 fL (81-99); Monocyte# 0.38 X10^3/uL; Monocyte% 5.2 % (0-10); NRBC Flagged by Analyzer 0 % (0-5); Neutrophil # 5.17 X10^3/uL (2.7-7.7); Neutrophil % 70.7 % (47-70); Platelet Count 390 K/mm3 (150-450); RBC Distribution Width CV 15.9 % (11.6-14.6); RBC Distribution Width SD 48.3 fl (35.1-43.9); Red Blood Count 4.87 M/mm3 (4.2-5.4); White Blood Count 7.3 K/mm3 (4.4-11.0)
[2025-03-28 20:08] LABS: Cytoplasmic Ab (C-ANCA) <1:20 titer (Neg:<1:20); Immunoglobulin E 67 IU/mL (6-495); Perinuclear Ab (P-ANCA) <1:20 titer (Neg:<1:20)
[2025-03-29 10:08] LABS: Alternaria alternata <0.10 kU/L (Class 0); Bermuda Grass <0.10 kU/L (Class 0); Bluegrass, Kentucky <0.10 kU/L (Class 0); Cat Hair/Dander, Standard <0.10 kU/L (Class 0); D farinae Mite 6.44 kU/L (Class IV); D pteronyssinus 3.79 kU/L (Class III); Dog Epithelia <0.10 kU/L (Class 0); Elm, American White <0.10 kU/L (Class 0); Mouse Urine <0.10 kU/L (Class 0); Oak, White <0.10 kU/L (Class 0); Plantain, English <0.10 kU/L (Class 0); Ragweed, Short/Common <0.10 kU/L (Class 0)
== END | disposition home or self-care (01) ==
PROVIDERS: PCP Family Medicine; Referring Provider Nurse Practitioner Family; Visit Provider Nurse Practitioner Family
DX: J45.902 Unspecified asthma with status asthmaticus (principal)
CPT/HCPCS: 36415; 82785; 85025; 86003; 86037; 94060; 94726; 94729

== ENCOUNTER 2025-04-04 12:11 | Emergency (ER) | payer OTHER, SELFPAY ==
[2025-04-04 12:12] VITALS: BP 145/95; PULSE 89; RESP 18; TEMP 36.8; O2SAT 100; BMI 38.0
--- NOTE | 2025-04-04 12:27 | EDS_ITS ---
HPI History of Present Illness Chief Complaint: Headache Narrative Narrative: 39-year-old female past medical history of previous migraine headaches presents with nausea and vomiting and headache and problems concentrating since a head injury on Tuesday, approximately 4 days ago. She relates history that she was at work, and had a 100 pound cart that was in a box hit her on the left side of her head. She was unsure about loss of consciousness. She was seen at an outside facility where she states they performed a CT of the brain which showed no evidence of intracranial hemorrhage. She was discharged, but since then she has been having nausea and vomiting, 3 times in the last 24 hours which alternates between headache. She states Tylenol and ibuprofen are not relieving her head pain. [facility] as she has an open Workmen's Comp. case with signs of a concussion including problems concentrating, headache, nausea and vomiting. [facility] Medical History Obesity Anxiety and depression Chronic headaches High cholesterol Lupus Chronic pain Asthma Kidney stones Home Medications ?Medication ?Instructions ?Recorded ?Last Taken ?Type albuterol sulfate 90 mcg/actuation 2 puff inhalation Q 4H PRN PRN 11/28/23 Unknown Rx aerosol inhaler (Ventolin HFA) Wheezing ##1 albuterol sulfate 2.5 mg/3 mL 2.5 mg (3 mL) inhalation Q4-6H PRN 01/22/25 Unknown Rx (0.083 %) solution for nebulization shortness of breat h or wheezing #180 mL nebulizer kits #1 ea 01/22/25 Unknown Rx neublizer machine #1 01/22/25 Unknown Rx fluticasone fur. 200 mcg-umeclid 1 inh inhalation Q24H #60 ea 04/02/25 Unknown Rx 62.5 mcg-vilant 25 mcg inhalat.powder (Trelegy Ellipta) Allergy/AdvReac Type Severity Reaction Status Date / Time benzonatate (From Tessalon Allergy Mild Swelling Verified 04/04/25 12:15 Francisca) Family History Mother Asthma Diabetes Hypertension Alcoholic cirrhosis of liver Alcohol abuse Father Nephrolithiasis Surgical History H/O section History of tonsillectomy and adenoidectomy History of dilatation and curettage History of lithotripsy S/P arthroscopic surgery of right knee Social History household members: other details: Notes she lives alone except for her younger daughter. Smoking Status: Never smoker second hand exposure: Yes alcohol intake: never substance use type: does not use ROS ROS ED ROS Narrative Review of systems positive for headache, nausea and vomiting, no hematemesis, no fevers or chills. No exacerbating or alleviating factors. Positive problems concentrating. EXAM Physical Exam Narrative Exam Narrative: GCS 15. ABCs intact. PERRL, EOMI. Airway patent, no drooling or trismus. Neck soft and supple. No stridor. Cardiovascular examination regular rate and rhythm. Lungs are clear to auscultation bilaterally. Abdomen is soft and nontender without guarding or rebound. Positive bowel sounds. Neurological examination shows her to be awake, alert, interactive, oriented, nonfocal, nonlateralizing. Const Vital Signs: 04/04/25 12:12 Temperature 98.3 F Temperature Source Oral Pulse Rate 89 Respiratory Rate 18 Blood Pressure 145/95 H Blood Pressure Mean 111 Pulse Ox 100 Oxygen Delivery Method Room Air MDM MDM MDM Narrative Medical decision making narrative: Differential diagnosis includes but not limited to migraine type headache with trigger of closed head injury versus intracranial hemorrhage versus postconcussive syndrome. I do not feel she needs repeat CT imaging as she had negative CT 4 days ago, she has a normal neurological examination currently. She will be treated with medications for migraine headache including Compazine and Benadryl and IV fluids and reassessed. Currently, she states she rates this headache out of 10 in a solid 10. After Compazine and Benadryl, patient was seen ambulating to the restroom and back to her room. Repeat evaluation shows her headache now 7. At this point in time, I feel she be discharged to follow-up with occupational medicine/[place] [employer] regarding her initial claim. This may be more of a regular migraine headache that she developed as she has history of this as well. As her pain has decreased I feel she can be discharged to follow-up. Disposition is discharged home in stable condition. History & Record Review Discussion w/independent historian: Patient Discharge Plan Triage Chief Complaint: Headache ED Provider: Regulo Samaniego Dx/Rx/DC Orders Clinical Impression: Post-concussion syndrome, Migraine headache Instructions: ED, Migraine (Classical) Prescriptions: No Action albuterol sulfate 2.5 mg /3 mL (0.083 %) solution for nebulization 2.5 mg inhalation Q4-6H PRN (Reason: shortness of breath or wheezing) Qty: 180 3RF (DME) nebulizer kits See Rx Instructions .ROUTE .MEDSUPPLY Qty: 1 11RF Rx Instructions: As directed (DME) neublizer machine See Rx Instructions .ROUTE .MEDSUPPLY Qty: 1 0RF Rx Instructions: As directed Trelegy Ellipta 200-62.5-25 mcg blister with device 1 inh inhalation Q24H Qty: 60 5RF albuterol sulfate [Ventolin HFA] 90 mcg/actuation HFA aerosol inhaler 2 puff inhalation Q4H PRN PRN (Reason: Wheezing) Qty: 1 0RF Stand Alone Forms: ED Work / School Excuse Primary Care Provider: Care Physician,No Primary Referrals: Melva Quinn MD [Med Staff - Cheese Grader] - As soon as possible Jin Castro MD [Non-Staff] - Aster Villalobos NP-C [Non-Staff] - As soon as possible Activity Restrictions/Additional Instructions: Follow-up with the [facility] again regarding your open [place] of Workmen's Compensation case from your head injury. Print Language: [place] African Disposition Disposition: Home, Self Care
[2025-04-04] MEDS: DiphenhydrAMINE 50 MG/ML Syringe 25 MG IV (12:51)
[2025-04-04] MEDS: 0.9% Normal Saline (1000mL) 1,000 ML 999 ML IV (12:52)
[2025-04-04] MEDS: proCHLORPERazine 10 MG/2 ML Vial IV (12:52)
[2025-04-04 14:15] VITALS: PULSE 74; RESP 16; O2SAT 99
== END 2025-04-04 14:16 | disposition home or self-care (01) ==
PROVIDERS: Emergency Provider Emergency Medicine; Visit Provider Emergency Medicine
DX: G43.909 Migraine, unspecified, not intractable, without status migrainosus (principal); F07.81 Postconcussional syndrome
CPT/HCPCS: 96361; 96374; 96375; 99282; A4216